=== PATIENT | female | born 1950 | race Caucasian/White ===

== ENCOUNTER 2016-10-06 10:45 | Emergency (ER) | payer BC, MEDICARE ==
[2016-10-06 10:50] VITALS: BMI 30.5
[2016-10-06] MEDS ORDERED: morphine CARPU-JECT 2 MG/1 ML DISP.SYRIN ONE (11:33)
[2016-10-06] MEDS ORDERED: SODIUM CHLORIDE 1,000 ML IV STA (11:33)
[2016-10-06] MEDS ORDERED: morphine CARPU-JECT 4 MG/1 ML DISP.SYRIN IVPUSH ONE (11:33)
[2016-10-06] MEDS ORDERED: CLINDAMYCIN 600MG PREMIX IVPB 50 ML IVPB ONE (11:49)
--- NOTE | 2016-10-06 11:52 | PDOC ---
History of Present Illness - General Chief Complaint: Edema Stated Complaint: EYE PROBLEM, HEADACHE Time Seen by Provider: 10/06/16 11:01 History Source: Patient - History of Present Illness Timing/Duration: other Severity: severe Associated Symptoms: denies: fever/chills, nausea/vomiting Past History - Past Medical History Allergies/Adverse Reactions: Allergies Allergy/AdvReac Type Severity Reaction Status Date / Time vancomycin Allergy Severe Verified 10/06/16 10:51 Home Medications: Ambulatory Orders Albuterol Sulfate [Proair Hfa -] 1 - 2 inh PO QID PRN 03/06/12 Buspirone HCl [Buspar] 15 mg PO BID 03/06/12 Gabapentin [Neurontin -] 900 mg PO BID 03/06/12 Paroxetine HCl [Paxil -] 10 mg PO DAILY 03/06/12 Tiotropium [place] [Spiriva] 1 inh IH HS 03/06/12 Aspirin Coated [Ecotrin -] 81 mg PO DAILY 09/15/15 Dicyclomine HCl [Bentyl -] 20 mg PO Q6H 09/15/15 Nortriptyline HCl [Pamelor -] 50 mg PO HS 09/15/15 Omeprazole [Prilosec (RX)] 40 mg PO DAILY 09/15/15 Salmeterol/Fluticasone [Advair 100Mcg/50Mcg -] 1 inh PO BID 09/15/15 Fluticasone Prop 0.05% Nasal [Flonase -] 1 - 2 spray NS DAILY 09/18/15 Folic Acid 1 mg PO DAILY 09/18/15 Oxycodone HCl/Acetaminophen [Percocet 5-325 mg Tablet] 1 tab PO Q6H PRN Amlodipine Besylate/Benazepril [Lotrel 5-40 mg Capsule] 1 each PO HS #30 capsule 06/27/16 Metoprolol Tartrate 25 mg PO DAILY #30 tablet 06/27/16 Alendronate Na [Fosamax] 70 mg PO Q7D 10/06/16 Anemia: Yes (IRON DEFICIENCY) Asthma: Yes Cancer: No Cardiac Disorders: Yes (CHEST PAIN,LEFT VENTRICULAR HYPERTROPHY) CVA: No COPD: No CHF: No Dementia: No Diabetes: No GI Disorders: Yes (ACID REFLUX, ABD. PAIN) Disorders: No HTN: Yes Hypercholesterolemia: Yes Liver Disease: Yes (FATTY LIVER) Suicide Attempt (Hx): No Seizures: No Thyroid Disease: No - Surgical History Abdominal Surgery: Yes (LIPOMA ON ABDOMEN REMOVED) Appendectomy: Yes Cardiac Surgery: No Cholecystectomy: No Lung Surgery: No Neurologic Surgery: No Orthopedic Surgery: Yes (TOTAL KNEE REPLACEMENTS) - Psycho/Social/Smoking Cessation Hx Anxiety: No Suicidal Ideation: No Smoking Status: No Smoking History: Never smoked Have you smoked in the past 12 months: No Number of Cigarettes Smoked Daily: 0 Hx Alcohol Use: No Drug/Substance Use Hx: No Substance Use Type: None Hx Substance Use Treatment: No Review of Systems - Review of Systems Constitutional: Yes: Fever. No: Chills *Physical Exam - Vital Signs Last Vital Signs Temp Pulse Resp BP Pulse Ox 98.6 F 100 H 20 123/86 100 10/06/16 10:46 10/06/16 10:46 10/06/16 10:46 10/06/16 10:46 10/06/16 10:46 - Physical Exam General Appearance: Yes: Appropriately Dressed, Mild Distress HEENT: positive: Normal Voice, Other (sig swelling w/ erythema to R face extending to R periorbital area, +induration over R maxilla area w/ ?fluctuance , poor dentition w/ missing teeth and dental caries) Neck: positive: Supple Respiratory/Chest: negative: Respiratory Distress Integumentary: positive: Dry, Warm Neurologic: positive: Fully Oriented, Alert, Normal Mood/Affect ED Treatment Course - LABORATORY CBC & Chemistry Diagram: 10/06/16 11:30 10/06/16 11:30 Medical Decision Making - Medical Decision Making 10/06/16 11:37 65-year-old female history of osteoporosis on Fosamax, hypertension, here with right-sided facial pain and swelling that started acutely this a.m. Patient states last month while states did not follow-up with a dentist and states pain has been gradually getting worse. This a.m. woke up with right facial pain and swelling. Positive subjective fever last night. No nausea, vomiting, dizziness or headache. See exam Dental abscess Stable significant swelling and erythema to R face diffusely w/ involvement of R periorbital area w/ almost complete closure of R eye, +induration over R maxilla w/ ? fluctuance, poor dentition w/ dental caries and missing teeth -pain control -abx -labs -m/l transfer to [facility] for admission and to be evaluated by dental for I&D 10/06/16 12:02 10/06/16 12:26 10/06/16 12:35 10/06/16 12:56 As of 12:40pm, pt was accepted to [facility] by Dr Patel in the ED. Dr Sandoval of dental surgery also aware. ETA for transport is 45-50min as per transfer center 10/06/16 13:21 *DC/Admit/Observation/Transfer Diagnosis at time of Disposition: Dental abscess, Facial cellulitis - Discharge Dispostion Disposition: TRANSFER ACUTE CARE/OTHER HOSP Condition at time of disposition: Stable - Referrals Referrals: Narinder Dhillon [Primary Care Provider] -
[2016-10-06 11:55] VITALS: TEMP 98.2
[2016-10-06 12:22] LABS: ALBUMIN 3.8 g/dl (3.4-5.0); ALK PHOS 132 U/L (45-117); ANION GAP 8 (8-16); BILIRUBIN,TOTAL 0.6 mg/dL (0.2-1.0); CO2 27 mmol/L (21-32); CREATININE 0.8 mg/dL (0.55-1.02); GLUCOSE,RANDOM 109 mg/dL (74-106); SGPT/ALT 32 U/L (12-78); TOT PROT 7.7 g/dl (6.4-8.2)
[2016-10-06 12:28] LABS: SGOT/AST 42 U/L (15-37)
[2016-10-06 12:44] LABS: BASOPHIL 0.4 % (0-2.0); MCH 31.7 pg (25.7-33.7); MCHC 33.5 g/dl (32.0-36.0); MEAN CELL VOLUME 94.8 fl (80-96); MEAN PLT VOLUME 9.3 fl (7.5-11.1); NEUTROPHILS 72.4 % (42.8-82.8); PLATELET COUNT 228 K/MM3 (134-434); RDW 13.7 % (11.6-15.6); WHITE BLOOD COUNT 9.7 K/mm3 (4.0-10.0)
[2016-10-06 12:55] LABS: INR 1.12 (0.82-1.09); PROTHROMBIN TIME (PATIENT) 12.3 SEC (9.98-11.88)
[2016-10-06] MEDS ORDERED: METOCLOPRAMIDE HCL INJECTION 10 MG/2 ML VIAL IVPB ONE (12:58)
[2016-10-06] MEDS ORDERED: METOCLOPRAMIDE HCL INJECTION 10 MG/2 ML VIAL ONE (13:01)
[2016-10-06 13:32] VITALS: BP 125/52; PULSE 86
[2016-10-06] MEDS ORDERED: CLINDAMYCIN 600MG PREMIX IVPB 50 ML IVPB SCH (18:00)
== END 2016-10-06 13:25 | disposition short-term general hospital (02) ==
LOC: JER 10:45
PROC: 3E03329 Introduction of Other Anti-infective into Peripheral Vein, Percutaneous Approach (ICD-10-PCS; principal; 2016-10-06)
PROC: 3E033NZ Introduction of Analgesics, Hypnotics, Sedatives into Peripheral Vein, Percutaneous Approach (ICD-10-PCS; 2016-10-06)
PROC: 3E033GC Introduction of Other Therapeutic Substance into Peripheral Vein, Percutaneous Approach (ICD-10-PCS; 2016-10-06)
DX: L03.213 Periorbital cellulitis (principal); K04.7 Periapical abscess without sinus; I10 Essential (primary) hypertension; E78.00 Pure hypercholesterolemia, unspecified; M81.0 Age-related osteoporosis without current pathological fracture
CPT/HCPCS: 36415; 80053; 85025; 85610; 86850; 86900; 86901; 96365; 96375; 99284-25

== ENCOUNTER 2017-05-27 08:08 | Day surgery (SDC) | payer BC, MEDICARE ==
[2017-05-27 08:27] VITALS: BMI 39.4
[2017-05-27] MEDS ORDERED: PROPOFOL 20 ML ONE (09:36)
[2017-05-27 09:59] VITALS: TEMP 97.8
[2017-05-27 10:41] VITALS: BP 122/84; PULSE 60
== END 2017-05-27 10:42 | disposition home or self-care (01) ==
LOC: JASU-ENDO 08:08
PROVIDERS: ATTEND Internal Medicine Gastroenterology
PROC: 0DJD8ZZ Inspection of Lower Intestinal Tract, Via Natural or Artificial Opening Endoscopic (ICD-10-PCS; principal; 2017-05-27 09:00)
DX: K64.8 Other hemorrhoids (principal); K62.89 Other specified diseases of anus and rectum; K63.89 Other specified diseases of intestine

== ENCOUNTER 2017-07-21 14:37 | Observation (INO) | payer BC, MEDICARE ==
[2017-07-21 14:48] VITALS: BMI 37.8
--- NOTE | 2017-07-21 14:48 | PDOC ---
Rapid Medical Evaluation Time Seen by Provider: 07/21/17 14:43 Medical Evaluation: Allergies Allergy/AdvReac Type Severity Reaction Status Date / Time vancomycin Allergy Severe Verified 10/06/16 10:51 07/21/17 14:44 Pt presents to the ED: syncope x 3, intermittent dizziness, denies cp, states hx of vertigo but on no medication, states head hit twice today, c/o generalized headache Pt on brief exam: vss, eomi, perrl Pt ordered for: cardiac w/u, head and cervical ct Pt to proceed to the ED Discharge Disposition - Diagnosis Syncope - Referrals - Patient Instructions - Post Discharge Activity
[2017-07-21 15:13] LABS: BASO % 0.2 % (0-2.0); EOS % 0.2 % (0-4.5); HEMATOCRIT 34.3 % (32.4-45.2); HEMOGLOBIN 11.6 GM/dL (10.7-15.3); LYMPH % 19.9 % (8-40); MCH 32.4 pg (25.7-33.7); MCHC 33.8 g/dl (32.0-36.0); MEAN PLT VOLUME 8.3 fl (7.5-11.1); MONO % 7.4 % (3.8-10.2); NEUT % 72.3 % (42.8-82.8); PLATELET COUNT 188 K/MM3 (134-434); RBC 3.57 M/mm3 (3.60-5.2); RDW 13.2 % (11.6-15.6); WHITE BLOOD COUNT 9.7 K/mm3 (4.0-10.0)
[2017-07-21 15:38] LABS: INR 1.09 (0.82-1.09); PROTHROMBIN TIME (PATIENT) 12.3 SEC (9.98-11.88)
[2017-07-21 15:54] LABS: ALBUMIN 3.8 g/dl (3.4-5.0); ANION GAP 10 (8-16); BLOOD UREA NITROGEN 21 mg/dL (7-18); CALCIUM 9.2 mg/dL (8.5-10.1); CHLORIDE 104 mmol/L (98-107); CO2 25 mmol/L (21-32); CREATININE 0.9 mg/dL (0.55-1.02); GLUCOSE,RANDOM 163 mg/dL (74-106); MAGNESIUM 1.7 mg/dL (1.8-2.4); POTASSIUM 4.5 mmol/L (3.5-5.1); SGOT/AST 19 U/L (15-37); SGPT/ALT 30 U/L (12-78); SODIUM 139 mmol/L (136-145)
[2017-07-21 15:59] LABS: ALK PHOS 96 U/L (45-117); BILIRUBIN,TOTAL 0.5 mg/dL (0.2-1.0); TOT PROT 7.3 g/dl (6.4-8.2)
--- NOTE | 2017-07-21 16:37 | PDOC ---
History of Present Illness - General Chief Complaint: Syncope/Near Syncope Stated Complaint: Syncope/Near Syncope Time Seen by Provider: 07/21/17 14:43 History Source: Patient Exam Limitations: No Limitations - History of Present Illness Initial Comments: This is a 66 YOF with h/o vertigo, HTN, CHARISSA (nonadherent to CPAP), and asthma who p/w intermittent lightheadedness (not like her prior vertigo), syncope x3 today, and hitting her head twice during these episodes on the left forehead. Each of these falls was preceded within a minute by having stood up from standing position. She additionally notes preceding lightheadedness and palpitations, but no chest pain, SOB, vision changes, or other symptoms. She currently has a mild headache in the area that she struck her head, as well as mild bruising to the area, but denies any other new symptoms today. She has had BLE swelling chronically but it is worse than normal lately. She had one prior recent episode of syncope about 2-3 months ago and was told that they never found out why this happened. Past History - Past Medical History Allergies/Adverse Reactions: Allergies Allergy/AdvReac Type Severity Reaction Status Date / Time vancomycin Allergy Severe Verified 07/21/17 14:44 Home Medications: Ambulatory Orders Paroxetine HCl [Paxil -] 20 mg PO DAILY 03/06/12 Aspirin Coated [Ecotrin -] 81 mg PO DAILY 09/15/15 Nortriptyline HCl [Pamelor -] 50 mg PO HS 09/15/15 Omeprazole [Prilosec (RX)] 40 mg PO DAILY 09/15/15 Oxycodone HCl/Acetaminophen [Percocet 5-325 mg Tablet] 1 tab PO Q6H PRN Metoprolol Tartrate 25 mg PO DAILY #30 tablet 06/27/16 Atorvastatin Ca [Lipitor] 40 mg PO HS 05/26/17 Benazepril HCl [Lotensin] 40 mg PO DAILY 05/26/17 Cyclobenzaprine HCl [Flexeril -] 5 mg PO DAILY 05/26/17 Cyclosporine [Restasis] 1 each OP DAILY 05/26/17 Albuterol Sulfate Inhaler - [Ventolin HFA Inhaler -] 1 - 2 inh PO QID 05/27/17 Fluticasone Prop 0.05% Nasal [Flonase -] 1 spray NS DAILY 05/27/17 Fluticasone/Salmeterol [Advair 250-50 Diskus] 1 each IH DAILY 05/27/17 Tiotropium [place] [Spiriva] 1 inh IH HS 05/27/17 Anemia: Yes (IRON DEFICIENCY) Asthma: Yes Cancer: No Cardiac Disorders: Yes (CHEST PAIN,LEFT VENTRICULAR HYPERTROPHY) CVA: No COPD: No CHF: No Dementia: No Diabetes: No GI Disorders: Yes (ACID REFLUX, ABD. PAIN. CHRONIC CONSTIPATION DRUG INDUCED) Disorders: No HTN: Yes Hypercholesterolemia: Yes Liver Disease: Yes (FATTY LIVER) Seizures: No Thyroid Disease: No - Surgical History Abdominal Surgery: Yes (LIPOMA ON ABDOMEN REMOVED) Appendectomy: Yes Cardiac Surgery: No Cholecystectomy: No Lung Surgery: No Neurologic Surgery: No Orthopedic Surgery: Yes (TOTAL KNEE REPLACEMENTS) - Suicide/Smoking/Psychosocial Hx Smoking Status: No Smoking History: Never smoked Have you smoked in the past 12 months: No Number of Cigarettes Smoked Daily: 0 Hx Alcohol Use: No Drug/Substance Use Hx: No Substance Use Type: None Hx Substance Use Treatment: No Review of Systems - Review of Systems Able to Perform ROS?: Yes Constitutional: No: Chills, Fever, Unexplained wgt Loss HEENTM: No: Nose Congestion, Throat Pain Respiratory: No: Cough, Shortness of Breath Cardiac (ROS): Yes: Edema, Lightheadedness, Palpitations (rapid), Syncope (x3 today). No: Chest Pain, Irregular Heart Rate ABD/GI: No: Constipated, Diarrhea, Nausea, Vomiting : No: Burning, Dysuria Musculoskeletal: No: Back Pain, Neck Pain Integumentary: No: Bruising, Rash Neurological: Yes: Headache (states since hitting forehead during syncopal episode). No: Numbness, Tingling, Weakness Endocrine: No: Unexplained Weight Gain, Unexplained Weight Loss *Physical Exam - Vital Signs Last Vital Signs Temp Pulse Resp BP Pulse Ox 98.3 F 118 H 19 138/80 99 07/21/17 14:44 07/21/17 14:44 07/21/17 14:44 07/21/17 14:44 07/21/17 14:44 - Physical Exam General Appearance: Yes: Nourished, Appropriately Dressed, Obese, Other ( pleasant, anxious-appearing, intermittently tearful, accompanied at bedside by daughter who is supportive). No: Apparent Distress HEENT: positive: EOMI, ELMER, Normal ENT Inspection, Normal Voice, Hearing Grossly Normal, Other (left frontal scalp contusion, no cephalohematoma, no raccoon eyes, no pastor sign, no hemotympanum, no CSF rhinorrhea or otorrhea). negative: Scleral Icterus (R), Scleral Icterus (L), Pharyngeal Erythema, Nasal Congestion, TM Bulging, TM Dull, TM Erythema Neck: positive: Trachea midline, Supple. negative: Tender, Rigid Respiratory/Chest: positive: Lungs Clear, Normal Breath Sounds. negative: Respiratory Distress, Crackles, Rhonchi, Stridor, Wheezing Cardiovascular: positive: Regular Rhythm, Regular Rate, Edema (1+ pitting edema BLE), Systolic Murmur (2/6) Gastrointestinal/Abdominal: positive: Normal Bowel Sounds, Soft, Protuberent. negative: Tender, Organomegaly, Pulsatile Mass, Guarding Musculoskeletal: positive: Normal Inspection. negative: Decreased Range of Motion, Vertebral Tenderness Extremity: positive: Normal Capillary Refill, Normal Inspection, Normal Range of Motion. negative: Tender, Cyanosis Integumentary: positive: Normal Color, Dry, Warm. negative: Erythema, Rash, Bruising Neurologic: positive: keysmith II-XII NML intact, Fully Oriented, Alert, Normal Mood/ Affect, Normal Response, Motor Strength 5/5, Finger to Nose (intention tremor but symmetric bilaterally). negative: EOM Palsy, Facial Droop, Confused, Disoriented ED Treatment Course - LABORATORY CBC & Chemistry Diagram: 07/21/17 15:05 07/21/17 15:05 - ADDITIONAL ORDERS Additional order review: Laboratory Results 07/21/17 07/21/17 15:05 15:05 PT with INR 12.30 H INR 1.09 Sodium 139 Potassium 4.5 Chloride 104 Carbon Dioxide 25 Anion Gap 10 BUN 21 H D Creatinine 0.9 Creat Clearance w eGFR > 60 Random Glucose 163 H D Calcium 9.2 Magnesium 1.7 L AST 19 D ALT 30 Albumin 3.8 07/21/17 15:05 RBC 3.57 L MCV 96.0 MCHC 33.8 RDW 13.2 MPV 8.3 D Neutrophils % 72.3 Lymphocytes % 19.9 Monocytes % 7.4 Eosinophils % 0.2 Basophils % 0.2 Medical Decision Making - Medical Decision Making 66 YOF p/w syncope x3 today, hit head on floor x2, had preceding RHR and lightheadedness. On exam VS with initial mild tachycardia but this resolves before my examination. Patient is anxious, tearful, but otherwise no distress, has intention tremor stated unchanged chronic. HEENT with left frontal contusions x2 but no other signs of facial trauma. Heart/lungs/abdomen/neuro normal exams otherwise except 2/6 systolic ejection murmur. DDX IBNLT critical , arrhythmia (e.g. ventricular arrhythmias, pSVT, A-fib with RVR, etc.), infection, ACS, PE, orthostasis, etc. Ordered is CBCD CMP cardiac panel EKG, CXR, Head and C-spine CT. 07/21/17 18:54 No remarkable findings on labs, EKG, CXR, or CT studies. She has BUN and Cr elevation in dehydration pattern. Patient given small bolus of IVF, also drinking PO. [employer] microblogged for admission. Admits patient to IP tele to Dr. Aranda. No repeated episodes of syncope here in the ED. *DC/Admit/Observation/Transfer Diagnosis at time of Disposition: Syncopal episodes Qualifiers: Syncope type: unspecified Qualified Code(s): R55 - Syncope and collapse CHI (closed head injury) Qualifiers: Encounter type: sequela Qualified Code(s): S09.90XS - Unspecified injury of head, sequela - Discharge Dispostion Condition at time of disposition: Guarded Admit: Yes - Referrals - Patient Instructions - Post Discharge Activity
--- NOTE | 2017-07-21 16:48 | EKG ---
Test Reason : Blood Pressure : / mmHG Vent. Rate : 108 BPM Atrial Rate : 108 BPM P-R Int : 144 ms QRS Dur : 092 ms QT Int : 350 ms P-R-T Axes : 040 011 047 degrees QTc Int : 469 ms SINUS TACHYCARDIA RSR' OR QR PATTERN IN V1 SUGGESTS RIGHT VENTRICULAR CONDUCTION DELAY NONSPECIFIC ST AND T WAVE ABNORMALITY ABNORMAL ECG WHEN COMPARED WITH ECG OF 27-JUN-2016 10:33, T WAVE VARIATION Confirmed by LISETTE GAY, ARACELI ([id number]) on 07/21/2017 4:47:37 PM Referred By: Confirmed By:ARACELI KNOX MD
[2017-07-21] MEDS ORDERED: SODIUM CHLORIDE 500 ML IV STA (17:26)
--- NOTE | 2017-07-21 17:30 | PDOC ---
Attending Attestation - Resident Resident Name: Natalia Steele - ED Attending Attestation I have performed the following: I have examined & evaluated the patient, The case was reviewed & discussed with the resident, I agree w/resident's findings & plan, Exceptions are as noted - Medical Decision Making 07/21/17 17:28 A portion of this note was written by my scribe, under my supervision. Vital Signs Temp Pulse Resp BP Pulse Ox 98.3 F 118 H 19 138/80 99 07/21/17 14:44 07/21/17 14:44 07/21/17 14:44 07/21/17 14:44 07/21/17 14:44 66-year-old female with history of hypertension, obstructive sleep apnea, asthma presents with syncope. Patient reports that for the last few days she's been having loose stools. Reports that she's been having normal intake. This morning, the patient was attempt to get of bed when she suddenly syncopized. She reported hitting her head. Denies headache but reports some forehead pain. Takes aspirin. Patient had then fainted a second time. She had called over to the bathroom and attempted to get up to the bathroom sink when she suddenly fainted again a hit her head. Denied chest pain or shortness of breath but did endorse some palpitations. Came to the ED for further evaluation. While the patient's syncope may potentially be orthostatic, the patient had fainted 3 times which with an abnormal EKG, requires workup for potential cardiac etiology. I agree with the plan to obtain head CT to rule out intracranial hemorrhage secondary to injury. Labs, trial some IV fluids, telemetry and admission to the hospital for further evaluation. <Shaun Spence - Last Filed: 07/21/17 17:26> - HPI HPI: 07/21/17 17:55 Pt is a 66 yo F with a PMHx of hypertension, obstructive sleep apnea, vertigo, asthma who presents to the ED s/p three syncopal episodes today. First episode occured when she got out of bed this morning. Patient reports hitting her forehead and endorses forehead pain. Patient denies nausea, vomiting, headache , dizziness. Patient syncopized a second time on the toilet when using the restroom, hitting her head a second time. Thirdly, she syncopized while sweeping the floor in her house. After all three episodes, patient returned to baseline however remained increasingly weak. Patient also endorses loose stools for the past few days and presents to the ED for further evaluation. PCP: None - Physicial Exam PE: 07/21/17 17:55 GENERAL: Awake, alert, and fully oriented, in no acute distress HEAD: +Small abrasion to L forehead EYES: PERRLA, EOMI, sclera anicteric, conjunctiva clear ENT: Auricles normal inspection, hearing grossly normal, nares patent, oropharynx clear without exudates. Moist mucosa NECK: Normal ROM, supple, no lymphadenopathy, JVD, or masses LUNGS: Breath sounds equal, clear to auscultation bilaterally. No wheezes, and no crackles HEART: Soft systolic murmur. Regular rate and rhythm, normal S1 and S2, No rubs or gallops ABDOMEN: Soft, nontender, normoactive bowel sounds. No guarding, no rebound. No masses EXTREMITIES: Normal range of motion, no edema. No clubbing or cyanosis. No cords, erythema, or tenderness NEUROLOGICAL: Cranial nerves II through XII grossly intact. Normal speech, normal gait SKIN: Warm, Dry, normal turgor, no rashes or lesions noted. - Medical Decision Making 07/21/17 17:55 Documentation prepared by Brittaney Muñiz, acting as medical education coordinator for Shaun Spence MD <Brittaney Muñiz - Last Filed: 07/21/17 17:55> Heart Score/ECG Review #1 07/21/17 17:26 NSR 108, RSR', RVH, QTC 469 msec, ?submm STD V3-V4 <Shaun Spence - Last Filed: 07/21/17 17:26>
[2017-07-21] MEDS ORDERED: ACETAMINOPHEN INJECTION 100 ML IVPB ONE (18:24)
[2017-07-21] MEDS ORDERED: ACETAMINOPHEN 1000 MG/100 ML VIAL (NON FORMULARY) IVPB ONE (18:29)
--- NOTE | 2017-07-21 19:23 | PN ---
Teaching Attending Note Name of Resident: Ann Lee ATTENDING PHYSICIAN STATEMENT I saw and evaluated the patient. I reviewed the resident's note and discussed the case with the resident. I agree with the resident's findings and plan as documented. SUBJECTIVE: 66 F with pmhx. of vertigo, htn, CHARISSA (does not wear CPAP), and asthma who presents with loss of concioussness three times. She states she has episodes intermittently of ligthheadedness and she hit her head during her syncopal episodes. Her falls mainly happened while getting up from sitting to standing. She had a similar episode of syncope around 2-3 months ago, but did not know what caused it. OBJECTIVE: Physical: VS: Vital Signs Period Temp Pulse Resp BP Sys/Matos Pulse Ox Last 24 Hr 98.3 F 118 19 138/80 99 GEN: NAD, Resting in bed AA0X3 HEENT: NCAT, PERRL, throat without erythema or exudates CARD:RRR S1, S2 RESP: CTAB ABD: BSx4, NTD to palpation EXT:-C/C/E CBCD WBC 9.7 K/mm3 (4.0-10.0) 07/21/17 15:05 RBC 3.57 M/mm3 (3.60-5.2) L 07/21/17 15:05 Hgb 11.6 GM/dL (10.7-15.3) 07/21/17 15:05 Hct 34.3 % (32.4-45.2) 07/21/17 15:05 MCV 96.0 fl (80-96) 07/21/17 15:05 MCHC 33.8 g/dl (32.0-36.0) 07/21/17 15:05 RDW 13.2 % (11.6-15.6) 07/21/17 15:05 Plt Count 188 K/MM3 (134-434) 07/21/17 15:05 MPV 8.3 fl (7.5-11.1) D 07/21/17 15:05 CMP Sodium 139 mmol/L (136-145) 07/21/17 15:05 Potassium 4.5 mmol/L (3.5-5.1) 07/21/17 15:05 Chloride 104 mmol/L (98-107) 07/21/17 15:05 Carbon Dioxide 25 mmol/L (21-32) 07/21/17 15:05 Anion Gap 10 (8-16) 07/21/17 15:05 BUN 21 mg/dL (7-18) H D 07/21/17 15:05 Creatinine 0.9 mg/dL (0.55-1.02) 07/21/17 15:05 Creat Clearance w eGFR > 60 (>60) 07/21/17 15:05 Random Glucose 163 mg/dL (74-106) H D 07/21/17 15:05 Calcium 9.2 mg/dL (8.5-10.1) 07/21/17 15:05 Total Bilirubin 0.5 mg/dL (0.2-1.0) 07/21/17 15:05 AST 19 U/L (15-37) D 07/21/17 15:05 ALT 30 U/L (12-78) 07/21/17 15:05 Alkaline Phosphatase 96 U/L (45-117) D 07/21/17 15:05 Total Protein 7.3 g/dl (6.4-8.2) 07/21/17 15:05 Albumin 3.8 g/dl (3.4-5.0) 07/21/17 15:05 CARDIAC ENZYMES Creatine Kinase 219 IU/L (26-192) H 07/21/17 15:05 Troponin I < 0.02 ng/ml (0.00-0.05) 07/21/17 15:05 CT HEAD- Negative for acute process EKG: Sinus Tachy 108, QtC 469 ASSESSMENT AND PLAN: 66 F with pmhx. of vertigo, htn, CHARISSA (does not wear CPAP), and asthma who presents with loss of conciousness three times, being admitted for syncope. 1.) Loss of Concsioussness - DDx: Cardiac vs. Vasovagal - Orthostatic Vs - Echo - Carotid Us - TSH - Trend Trop/Ekg - CT HEAD negative 2.) Vertigo - Meclizine Rest as per resident note
--- NOTE | 2017-07-21 20:12 | HP ---
CHIEF COMPLAINT: " I passed out and fell three times today PCP: Dr. Narinder Hall Pulm: Dr. Dumont GI: Dr. Thompson ENT: Dr. Ball Cardio: Dr. Edith Bailey HISTORY OF PRESENT ILLNESS: Patient is an 66-year-old male presented to the ED with the chief complaint of " I passed out and fell three times today". As per the patient, she woke up this morning, as soon as she took her first step, she passed out. No dizziness, vertigo or any symptoms prior to the syncope. Patient states she was alone at home. She woke up took few more steps, passed out near the toilet. Cannot tell how long she passed out. Patient then went to the Kitchen and started mopping the floor (daughter states she has OCD to clean and is always cleaning), and passed out the third time. Patient again regained consciouness, had a cup of coffee for breakfast, called cab and came in to the ED for further evaluation. This is her second episode of syncope, last syncope was 2 months ago. Denies chest pain, palpitation, abdominal pain, nausea, vomiting, vertigo, dizziness. Patient states she had sob this morning prior to the fall and had severe headache post fall. Patient reports she has had loose stool since few days associated with food intake. She also complaints of chronic epigastric burning pain that has been going on since 2 years. Bladder habit normal. Sleep/Appetite normal ER course was notable for: (1) Afebrile, hemodynamically stable (2) EKG: NSR 108, RSR', RVH, QTC 469 msec, ?submm STD V3-V4 (3) IV NS @ 500mls Recent Travel: None PAST MEDICAL HISTORY: Asthma (no ICU, no intubations), CHARISSA on CPAP on/off , GERD , hiatal hernia, HTN, depression, generalized anxiety disorder, Essential tremors PAST SURGICAL HISTORY: B/L knee replacement, left breast biospy done 2 months ago-benign as per the patient. Social History: Smoking: Denies Alcohol: Denies Drugs: Denies Family History: Non contributory Allergies vancomycin Allergy (Severe, Verified 07/21/17 14:44) red man syndrome HOME MEDICATIONS: Home Medications Medication Instructions Recorded Paroxetine HCl [Paxil -] 20 mg PO DAILY 03/06/12 Aspirin Coated [Ecotrin -] 81 mg PO DAILY 09/15/15 Nortriptyline HCl [Pamelor -] 50 mg PO HS 09/15/15 Omeprazole [Prilosec (RX)] 40 mg PO DAILY 09/15/15 Oxycodone HCl/Acetaminophen 1 tab PO Q6H PRN 12/07/15 [Percocet 5-325 mg Tablet] Metoprolol Tartrate 25 mg PO DAILY #30 tablet 06/27/16 Atorvastatin Ca [Lipitor] 40 mg PO HS 05/26/17 Benazepril HCl [Lotensin] 40 mg PO DAILY 05/26/17 Cyclobenzaprine HCl [Flexeril -] 5 mg PO DAILY 05/26/17 Cyclosporine [Restasis] 1 each OP DAILY 05/26/17 Albuterol Sulfate Inhaler - 1 - 2 inh PO QID 05/27/17 [Ventolin HFA Inhaler -] Fluticasone Prop 0.05% Nasal 1 spray NS DAILY 05/27/17 [Flonase -] Fluticasone/Salmeterol [Advair 1 each IH DAILY 05/27/17 250-50 Diskus] Tiotropium [place] [Spiriva] 1 inh IH HS 05/27/17 REVIEW OF SYSTEMS CONSTITUTIONAL: Absent: fever, chills, diaphoresis, generalized weakness, malaise, loss of appetite, weight change HEENT: Absent: rhinorrhea, nasal congestion, throat pain, throat swelling, difficulty swallowing, mouth swelling, ear pain, eye pain, visual changes CARDIOVASCULAR: Absent: chest pain, syncope, palpitations, irregular heart rate, lightheadedness , peripheral edema RESPIRATORY: Absent: cough, shortness of breath, dyspnea with exertion, orthopnea, wheezing, stridor, hemoptysis GASTROINTESTINAL: Absent: abdominal pain, abdominal distension, nausea, vomiting, diarrhea, constipation, melena, hematochezia GENITOURINARY: Absent: dysuria, frequency, urgency, hesitancy, hematuria, flank pain, genital pain MUSCULOSKELETAL: Absent: myalgia, arthralgia, joint swelling, back pain, neck pain SKIN: Absent: rash, itching, pallor HEMATOLOGIC/IMMUNOLOGIC: Absent: easy bleeding, easy bruising, lymphadenopathy, frequent infections ENDOCRINE: Absent: unexplained weight gain, unexplained weight loss, heat intolerance, cold intolerance NEUROLOGIC: Present: syncope Absent: headache, focal weakness or paresthesias, dizziness, unsteady gait, seizure, mental status changes, bladder or bowel incontinence PSYCHIATRIC: Absent: anxiety, depression, suicidal or homicidal ideation, hallucinations. PHYSICAL EXAMINATION Vital Signs - 24 hr 07/21/17 14:44 Temperature 98.3 F Pulse Rate 118 H Respiratory 19 Rate Blood Pressure 138/80 O2 Sat by Pulse 99 Oximetry (%) GENERAL: Patient is sitting comfortably in bed, Awake, alert, and fully oriented , in no acute distress. HEAD: Bruises in the forehead, no active bleeding or cuts. EYES: EOM intact, no pallor or icterus. EARS, NOSE, THROAT: Ears normal. Dry mucous membranes. NECK: Supple. LUNGS: B/L Breath sounds equal, clear to auscultation bilaterally. No wheezes, and no crackles. No accessory muscle use. HEART: Regular rate and rhythm, normal S1 and S2 with soft systolic murmur. ABDOMEN: Soft, nontender, not distended, normoactive bowel sounds, no guarding, no rebound, no masses. No hepatomegaly or splenomegaly. MUSCULOSKELETAL: Normal range of motion at all joints. No bony deformities or tenderness. No CVA tenderness. UPPER EXTREMITIES: 2+ pulses, warm, well-perfused. No cyanosis. No clubbing. No peripheral edema. Right wrist: swollen+, tender to touch, limited ROM LOWER EXTREMITIES: 2+ pulses, warm, well-perfused. No calf tenderness. No peripheral edema. NEUROLOGICAL: No facial droop; Power 5/5 in all extremities except the left upper ext-has chronic weakness; Cranial nerves II-XII intact. Normal speech. Gait not observed. PSYCHIATRIC: Cooperative. Good eye contact. Appropriate mood and affect. SKIN: Warm, dry, normal turgor, no rashes or lesions noted, normal capillary refill. Laboratory Results - last 24 hr 07/21/17 07/21/17 07/21/17 15:05 15:05 15:05 WBC 9.7 RBC 3.57 L Hgb 11.6 Hct 34.3 MCV 96.0 MCH 32.4 MCHC 33.8 RDW 13.2 Plt Count 188 MPV 8.3 D Neutrophils % 72.3 Lymphocytes % 19.9 Monocytes % 7.4 Eosinophils % 0.2 Basophils % 0.2 PT with INR 12.30 H INR 1.09 Sodium 139 Potassium 4.5 Chloride 104 Carbon Dioxide 25 Anion Gap 10 BUN 21 H D Creatinine 0.9 Creat Clearance w eGFR > 60 Random Glucose 163 H D Calcium 9.2 Magnesium 1.7 L Total Bilirubin 0.5 AST 19 D ALT 30 Alkaline Phosphatase 96 D Creatine Kinase 219 H Creatine Kinase Index 2.4 CK-MB (CK-2) 5.462 H Troponin I < 0.02 Total Protein 7.3 Albumin 3.8 ASSESSMENT/PLAN: Patient is an 66-year-old male with significant past medical history of Asthma ( no ICU, no intubations), CHARISSA on CPAP on/off , GERD, hiatal hernia, HTN, depression, generalized anxiety disorder, Essential tremors presented to the ED with the chief complaint of syncope three episodes today. # Syncope likely vasovagal with dehydration c/o syncope three episodes, unwitnessed On arrival, she was afebrile, hemodynamically stable Admitted in Tele/obs Continuous cardiac monitoring Head CT negative for acute pathology CXR: No fractures Cervical spine CT: No acute pathology ECHO and Carotid doppler- ordered for AM IV NS @ 83mls/hr # s/p fall-r/o fracture Left shoulder and wrist x-ray pending. # SOB with RSR' pattern in EKG, Tachycardia-r/o PE Low suspicion for PE Wells score- D-dimer pending # Asthma-not in exacerbation Albuterol nebs Fluticasone/Salmeterol # ATUL Continue Nortriptyline 50 mg PO HS Continue Paroxetine 20 mg PO Daily # GERD Continue Omeprazole 20mg PO Daily # FEN IV NS @ 83mls/hr Electrolytes WNL Sodium controlled diet # Prophylaxis For DVT: ON SCDs, early ambulation For GI: On Omeprazole # Code Status: Full Code # Dispo: Admitted in Tele/obs. Probable discharge tomorrow if patients labs/ imaging comes back normal. Illness, Investigation and Plan of care explained to the patient and her daughter. She verbalized understanding. Case seen and discussed with Dr. Page. Visit type - Emergency Visit Emergency Visit: Yes ED Registration Date: 07/21/17 Care time: The patient presented to the Emergency Department on the above date and was hospitalized for further evaluation of their emergent condition. - New Patient This patient is new to me today: Yes Date on this admission: 07/21/17 - Critical Care Critical Care patient: No
[2017-07-21] MEDS ORDERED: SODIUM CHLORIDE 1,000 ML IV SCH (20:15)
[2017-07-21] MEDS ORDERED: [UNRECOGNIZED DRUG - OTHER] PO SCH (20:15)
[2017-07-21] MEDS ORDERED: ACETAMINOPHEN 325 MG TABLET (FP) PO PRN (20:25)
[2017-07-21] MEDS ORDERED: oxyCODONE HCL 5 MG TABLET PO PRN (20:25)
[2017-07-21] MEDS ORDERED: ALBUTEROL SO4 0.083% IH SOL 2.5 MG/3 ML VIAL.NEB. NEB PRN (20:28)
[2017-07-21] MEDS: PARoxetine HCL 10 MG TABLET (FP) PO SCH (21:24)
[2017-07-21] MEDS ORDERED: PARoxetine HCL 10 MG TABLET (FP) ONE (21:24)
[2017-07-21 21:44] LABS: URINE APPEARANCE CLEAR; URINE BILIRUBIN NEGATIVE (NEGATIVE); URINE BLOOD NEGATIVE (NEGATIVE); URINE COLOR STRAW; URINE GLUCOSE (UA) NEGATIVE (NEGATIVE); URINE KETONE NEGATIVE (NEGATIVE); URINE LEUK ESTERASE NEGATIVE (NEGATIVE); URINE NITRITE NEGATIVE (NEGATIVE); URINE PROTEIN NEGATIVE (NEGATIVE); URINE UROBILINOGEN NEGATIVE mg/dL (0.2-1.0)
[2017-07-21] MEDS ORDERED: NORTRIPTYLINE HCL 50 MG CAPSULE PO SCH (22:00)
[2017-07-21] MEDS ORDERED: NORTRIPTYLINE HCL 25 MG CAPSULE PO SCH (22:37)
[2017-07-21] MEDS: ATORVASTATIN CA 40 MG TABLET (FP) PO SCH (23:00)
[2017-07-21] MEDS: BUDESONIDE/FORMETEROL FUMARATE 80/4.5 mcg INHALER IH SCH (23:00)
[2017-07-21] MEDS: TIOTROPIUM BROMIDE 18 MCG/INH (DEVICE W/ 5 CAPSULES) IH SCH (23:00)
[2017-07-22 07:42] LABS: HEMATOCRIT 36.2 % (32.4-45.2); HEMOGLOBIN 11.9 GM/dL (10.7-15.3); MCH 31.8 pg (25.7-33.7); MCHC 32.9 g/dl (32.0-36.0); MEAN CELL VOLUME 96.5 fl (80-96); MEAN PLT VOLUME 8.4 fl (7.5-11.1); PLATELET COUNT 178 K/MM3 (134-434); RBC 3.75 M/mm3 (3.60-5.2); RDW 13.4 % (11.6-15.6)
[2017-07-22 07:49] LABS: ANION GAP 9 (8-16); BLOOD UREA NITROGEN 13 mg/dL (7-18); CHLORIDE 108 mmol/L (98-107); CO2 25 mmol/L (21-32); GLUCOSE,RANDOM 104 mg/dL (74-106); MAGNESIUM 2.1 mg/dL (1.8-2.4); POTASSIUM 4.2 mmol/L (3.5-5.1); SODIUM 142 mmol/L (136-145)
[2017-07-22 07:53] LABS: CHOLESTEROL 145 mg/dL (50-200); CREATININE 0.7 mg/dL (0.55-1.02); HDL CHOLESTEROL 97 mg/dL (40-60); LDL CHOLESTEROL (ONLY SJRH) 47 mg/dL (5-100); TRIGLYCERIDES 47 mg/dL (35-160)
[2017-07-22] MEDS: BUDESONIDE/FORMETEROL FUMARATE 80/4.5 mcg INHALER IH SCH ×2 (10:00→22:00)
[2017-07-22] MEDS ORDERED: PATIENT'S OWN MEDICATION (NON-FORMULARY) (Cyclosporine [Restasis] 1 EACH) OP SCH (10:00)
[2017-07-22] MEDS: LISINOPRIL 20 MG TABLET (FP) PO SCH (10:01)
[2017-07-22] MEDS: ASPIRIN COATED 81 MG TABLET.EC PO SCH (10:02)
[2017-07-22] MEDS: CYCLOBENZAPRINE HCL 10 MG TABLET (FP) PO SCH (10:03)
[2017-07-22] MEDS: METOPROLOL TARTRATE 25 MG TABLET (FP) PO SCH (10:04)
[2017-07-22] MEDS: FLUTICASONE PROP 0.05% 16 GM NASAL SPRAY NS SCH (10:04)
[2017-07-22] MEDS ORDERED: PARoxetine HCL 10 MG TABLET (FP) ONE (10:05)
[2017-07-22] MEDS ORDERED: METOPROLOL TARTRATE 25 MG TABLET (FP) ONE (10:05)
[2017-07-22] MEDS: PARoxetine HCL 10 MG TABLET (FP) PO SCH (10:05)
--- NOTE | 2017-07-22 10:09 | CON.CARD ---
Consult Consult Specialty:: Cardiology Referred by:: Nahomy Reason for Consultation:: syncope - History of Present Illness Chief Complaint: syncope History of Present Illness: 66F non-obstx CAD, HTN, HL, asthma, b/l knee replacements, CHARISSA recent issues with low BP, last seen in office on 06/19 with low BP- amlo/benaz was discontinued. Yesterday she describes 3 episodes of syncope after standing. Denies antecedent CP, SOB, edema. Denies fever or chills. Denies recent illness. - History Source History Provided By: Patient, Medical Record - Past Medical History Cardio/Vascular: Yes: HTN, Hyperlipdemia Pulmonary: Yes: Asthma, Sleep Apnea Gastrointestinal: Yes: Gastritis, GERD, Hiatal Hernia Psych: Yes: Anxiety, Depression Musculoskeletal: Yes: Chronic low back pain - Past Surgical History Past Surgical History: Yes: Appendectomy - Alcohol/Substance Use Hx Alcohol Use: No History of Substance Use: reports: None - Smoking History Smoking history: Never smoked Have you smoked in the past 12 months: No Aproximately how many cigarettes per day: 0 - Social History ADL: Independent History of Recent Travel: No Home Medications - Allergies Allergies/Adverse Reactions: Allergies Allergy/AdvReac Type Severity Reaction Status Date / Time vancomycin Allergy Severe Verified 07/21/17 14:44 - Home Medications Home Medications: Ambulatory Orders Paroxetine HCl [Paxil -] 20 mg PO DAILY 03/06/12 Aspirin Coated [Ecotrin -] 81 mg PO DAILY 09/15/15 Nortriptyline HCl [Pamelor -] 50 mg PO HS 09/15/15 Omeprazole [Prilosec (RX)] 40 mg PO DAILY 09/15/15 Oxycodone HCl/Acetaminophen [Percocet 5-325 mg Tablet] 1 tab PO Q6H PRN Metoprolol Tartrate 25 mg PO DAILY #30 tablet 06/27/16 Atorvastatin Ca [Lipitor] 40 mg PO HS 05/26/17 Benazepril HCl [Lotensin] 40 mg PO DAILY 05/26/17 Cyclobenzaprine HCl [Flexeril -] 5 mg PO DAILY 05/26/17 Cyclosporine [Restasis] 1 each OP DAILY 05/26/17 Albuterol Sulfate Inhaler - [Ventolin HFA Inhaler -] 1 - 2 inh PO QID 05/27/17 Fluticasone Prop 0.05% Nasal [Flonase -] 1 spray NS DAILY 05/27/17 Fluticasone/Salmeterol [Advair 250-50 Diskus] 1 each IH DAILY 05/27/17 Tiotropium [place] [Spiriva] 1 inh IH HS 05/27/17 Family Disease History - Family Disease History Family History: Unremarkable (not pertinent to this presentation) Review of Systems - Review of Systems Constitutional: reports: No Symptoms Eyes: reports: No Symptoms HENT: reports: No Symptoms Neck: reports: No Symptoms Cardiovascular: reports: No Symptoms Respiratory: reports: No Symptoms Gastrointestinal: reports: No Symptoms Genitourinary: reports: No Symptoms Neurological: reports: Dizziness - Risk Factors Known Risk Factors: Yes: Hypercholesterolemia, Hypertension Vital Signs: Vital Signs Temperature 99.1 F 07/22/17 05:31 Pulse Rate 105 H 07/22/17 08:18 Respiratory Rate 18 07/22/17 08:18 Blood Pressure 120/93 07/22/17 08:18 O2 Sat by Pulse Oximetry (%) 99 07/22/17 08:22 Constitutional: Yes: Calm Eyes: Yes: Conjunctiva Clear, EOM Intact HENT: Yes: Normocephalic Neck: Yes: Supple Respiratory: Yes: CTA Bilaterally Gastrointestinal: Yes: Soft Cardiovascular: Yes: Regular Rate and Rhythm JVD: No Carotid Bruit: No PMI: Non-Displaced Heart Sounds: Yes: S1, S2 (RRR, no murmurs) Edema: No Neurological: Yes: Alert, Oriented - Other Data Labs, Other Data: CBC, BMP 07/22/17 07:09 07/22/17 07:04 INR, PTT INR 1.09 (0.82-1.09) 07/21/17 15:05 Troponin, BNP 07/21/17 15:05 Troponin I < 0.02 Troponin, BNP 07/21/17 15:05 Troponin I < 0.[address] 106 RSR' Echo: Other (11-08-16: Moderate MAC Aortic sclerosis RVSP: 38 Normal biV function ) Stress Echo: Other (ETT: 10-17-16: 6 Minutes evonne, 85% target. Negative study) Ejection Fraction %: LVEF > or = 40 % Imaging - Results Chest X-ray: Report Reviewed, Image Reviewed Cat Scan: Report Reviewed, Image Reviewed EKG: Image Reviewed Problem List - Problems (1) Syncope Assessment/Plan: -recent issues with hypotension; need to assess for orthostasis -Check orthostatics -Carotid US basically normal -To repeat echo -Tele x 24 hours. -Now also with low grade fever: work up as per PMD Code(s): R55 - SYNCOPE AND COLLAPSE Qualifiers: Syncope type: unspecified Qualified Code(s): R55 - Syncope and collapse (2) HTN (hypertension) Assessment/Plan: -recent fluctuations in BP with amlodipine/benazepril discontinued as outpatient -Will observe BP trend, check orthostatics Code(s): I10 - ESSENTIAL (PRIMARY) HYPERTENSION Qualifiers: Hypertension type: essential hypertension Qualified Code(s): I10 - Essential (primary) hypertension
--- NOTE | 2017-07-22 16:23 | PN ---
Teaching Attending Note Name of Resident: Meenu Traylor ATTENDING PHYSICIAN STATEMENT I saw and evaluated the patient. I reviewed the resident's note and discussed the case with the resident. I agree with the resident's findings and plan as documented. SUBJECTIVE:no repeat episodes since arriving to ER. denies any symptoms prior to syncopal events and none in the past. no recent medicaitons changes. claims medication compliance. denies CP, SOB, fever, chills, N/V/C/D OBJECTIVE: Last Vital Signs Temp Pulse Resp BP Pulse Ox 99.1 F 97 H 18 116/41 99 07/22/17 05:31 07/22/17 15:40 07/22/17 11:50 07/22/17 15:40 07/22/17 11:50 General NAD HEENT no nystagmus, moist mucosa CV S1 S2 RRR no murmur no carotid bruit Lungs CTA B/L no wheezing/rales/rhonchi ASSESSMENT AND PLAN: 66yo F with PMH vertigo, HTN, CHARISSA and COPD presented to the ER after syncope x3 at home 1. Syncope- concern for arrythmia induced due to 3 episodes however could possible be vasovagal as well. check orthostatics. continuous cardiac monitoring. check carotid doppler, echo. cardio consulted. 2. HTN- controlled. cont acei 3. vertigo 4. COPD- no signs of exacerbation. cont inhalers 5. depression 6. dyslipidemia- on statin 7. will cont cardiac monitoring x24H. if no recurrent events on events on monitor will d/c home
--- NOTE | 2017-07-22 19:32 | PN ---
Physical Exam: SUBJECTIVE: Patient seen and examined. Pt denies lightheadedness, dizziness, chest pain, sob, abdominal pain, fever, chills. Pt reports Right wrist pain and swelling improved from yesterday. OBJECTIVE: Vital Signs Period Temp Pulse Resp BP Sys/Matos Pulse Ox Last 24 Hr 98.2 F-99.1 F 90-109 18-18 116-140/41-93 98-99 GENERAL: The patient is awake, alert, and fully oriented, in no acute distress. HEAD: Normal with no signs of trauma. LUNGS: Breath sounds equal, clear to auscultation bilaterally, no wheezes, no crackles, no accessory muscle use. HEART: Regular rate and rhythm, S1, S2 without murmur, rub or gallop. No carotid bruit appreciated. ABDOMEN: Soft, nontender, nondistended, no guarding. EXTREMITIES: Warm, well-perfused, no edema. PSYCH: Normal mood, normal affect. SKIN: Warm, dry, normal turgor, no rashes or lesions noted Laboratory Results - last 24 hr 07/21/17 07/21/17 07/22/17 19:55 21:17 07:04 WBC RBC Hgb Hct MCV MCH MCHC RDW Plt Count MPV D-Dimer 489 H Sodium 142 Potassium 4.2 Chloride 108 H Carbon Dioxide 25 Anion Gap 9 BUN 13 D Creatinine 0.7 D Random Glucose 104 D Hemoglobin A1c % Calcium 9.0 Magnesium 2.1 D Triglycerides 47 Cholesterol 145 Total LDL Cholesterol 47 HDL Cholesterol 97 H Urine Color Straw Urine Appearance Clear Urine pH 5.0 Ur Specific [place] 1.006 Urine Protein Negative Urine Glucose (UA) Negative Urine Ketones Negative Urine Blood Negative Urine Nitrite Negative Urine Bilirubin Negative Urine Urobilinogen Negative Ur Leukocyte Esterase Negative 07/22/17 07/22/17 07:04 07:09 WBC 9.0 RBC 3.75 Hgb 11.9 Hct 36.2 MCV 96.5 H MCH 31.8 MCHC 32.9 RDW 13.4 Plt Count 178 MPV 8.4 D-Dimer Sodium Potassium Chloride Carbon Dioxide Anion Gap BUN Creatinine Random Glucose Hemoglobin A1c % 6.0 Calcium Magnesium Triglycerides Cholesterol Total LDL Cholesterol HDL Cholesterol Urine Color Urine Appearance Urine pH Ur Specific [place] Urine Protein Urine Glucose (UA) Urine Ketones Urine Blood Urine Nitrite Urine Bilirubin Urine Urobilinogen Ur Leukocyte Esterase Active Medications Generic Name Dose Route Start Last Admin Trade Name Freq PRN Reason Stop Dose Admin Acetaminophen 325 mg 07/21/17 20:25 Tylenol - PO Q6H PRN PAIN Albuterol Sulfate 1 amp 07/21/17 20:28 Ventolin 0.083% Nebulizer Soln - NEB Q4H PRN SHORT OF BREATH/WHEEZING Aspirin 81 mg 07/22/17 10:00 07/22/17 10:02 Ecotrin - PO 81 mg DAILY [facility] Administration Atorvastatin Calcium 40 mg 07/21/17 22:00 07/21/17 23:00 Lipitor - PO 40 mg HS [facility] Administration Budesonide/Formoterol Fumarate 2 puff 07/21/17 22:00 07/22/17 10:00 Symbicort 80/4.5mcg - IH 2 puff BID [facility] Administration Cyclobenzaprine HCl 5 mg 07/22/17 10:00 07/22/17 10:03 Flexeril - PO 5 mg DAILY [facility] Administration Fluticasone Propionate 1 spray 07/22/17 10:00 07/22/17 10:04 Flonase - NS 1 spr DAILY [facility] Administration Sodium Chloride 1,000 mls @ 83 mls/hr 07/21/17 20:15 07/21/17 21:23 Normal Saline - IV 83 mls/hr ASDIR [facility] Administration Lisinopril 40 mg 07/22/17 10:00 07/22/17 10:01 Prinivil PO 40 mg DAILY [facility] Administration Metoprolol Tartrate 25 mg 07/22/17 10:00 07/22/17 10:04 Lopressor - PO 25 mg DAILY [facility] Administration Non-Formulary Medication 1 each 07/22/17 10:00 Cyclosporine [Restasis] OP DAILY [facility] Non-Formulary Medication 40 mg 07/21/17 20:15 Omeprazole Pediatric Solution PO DAILY [facility] Nortriptyline HCl 50 mg 07/21/17 22:37 Pamelor - PO HS [facility] Oxycodone HCl 5 mg 07/21/17 20:25 Roxicodone - PO Q6H PRN PAIN Paroxetine HCl 20 mg 07/21/17 20:15 07/22/17 10:05 Paxil - PO 20 mg DAILY [facility] Administration Tiotropium [place] 1 puff 07/21/17 22:00 07/21/17 23:00 Spiriva - IH 1 mg HS [facility] Administration IMAGIN07/21/17 CXR -> mild chronic Left lower lung discord atelectasis/linear parenchymal scarring. No discrete infiltrate or pleural effusion. 07/21/[address] -> no CT evidence of acute intracranial pathology 07/21/[address] -> no fracture 07/21/17 Carotid Doppler -> minimal intimal thickening of [place] common carotid bifurcation, and ?minimal plaque buildup sans evidence of hemodynamically significant stenosis. 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 07/22/17 Echo -> Left ventricular size, thickness and function normal. Right ventricle normal in size and function. Mild mitral annular calcification. Mild TR. ASSESSMENT/PLAN: 66F with PMH of vertigo, CHARISSA, htn, presents s/p syncope x 3 episodes at home. # syncope - likely 2/2 arrhythmia vs vasovagal vs dehydration - EKG -> sinus tachycardia with T wave variation as compared to EKG of - orthostatic VS: supine 116/41, HR 97; sitting 129/85, HR 103; standing 137/ 79, HR 100 - continuous cardiac monitoring -> if no recurrent events on monitor can be D /[facility] home tomorrow - Cardio (Dr. Corea) recs appreciated # hld - continue home med of Lipitor # htn - continue home med of Lopressor - Lisinopril # COPD - continue home meds of Albuterol, Advair, Spiriva # depression - continue home med of Paxil and Nortriptyline # FEN - Fluids: NS @ 83 ml/hr - Electrolytes: wnl, continue to monitor - Nutrition: low sodium diet # Prophylaxis - DVT ppx with [place] SCDs Visit type - Emergency Visit Emergency Visit: Yes ED Registration Date: 07/21/17 Care time: The patient presented to the Emergency Department on the above date and was hospitalized for further evaluation of their emergent condition. - New Patient This patient is new to me today: No - Critical Care Critical Care patient: No
[2017-07-22] MEDS ORDERED: LOPERAMIDE HCL 2 MG CAPSULE PO PRN (19:33)
[2017-07-22] MEDS: TIOTROPIUM BROMIDE 18 MCG/INH (DEVICE W/ 5 CAPSULES) IH SCH (22:00)
[2017-07-22] MEDS: ATORVASTATIN CA 40 MG TABLET (FP) PO SCH (22:02)
[2017-07-22] MEDS: ALPRAZolam 0.25 MG TABLET PO PRN (22:03)
[2017-07-23 08:34] LABS: HEMOGLOBIN 11.2 GM/dL (10.7-15.3); MCH 31.9 pg (25.7-33.7); MCHC 33.1 g/dl (32.0-36.0); MEAN CELL VOLUME 96.4 fl (80-96); MEAN PLT VOLUME 8.5 fl (7.5-11.1); PLATELET COUNT 176 K/MM3 (134-434); RBC 3.53 M/mm3 (3.60-5.2); RDW 13.4 % (11.6-15.6); WHITE BLOOD COUNT 6.2 K/mm3 (4.0-10.0)
[2017-07-23 09:25] LABS: CHLORIDE 107 mmol/L (98-107); POTASSIUM 3.5 mmol/L (3.5-5.1); SODIUM 141 mmol/L (136-145)
[2017-07-23] MEDS: LISINOPRIL 20 MG TABLET (FP) PO SCH (09:31)
[2017-07-23] MEDS: CYCLOBENZAPRINE HCL 10 MG TABLET (FP) PO SCH (09:31)
[2017-07-23] MEDS: ALPRAZolam 0.25 MG TABLET PO PRN (09:31)
[2017-07-23] MEDS: METOPROLOL TARTRATE 25 MG TABLET (FP) PO SCH (09:31)
[2017-07-23] MEDS: ASPIRIN COATED 81 MG TABLET.EC PO SCH (09:32)
[2017-07-23] MEDS: FLUTICASONE PROP 0.05% 16 GM NASAL SPRAY NS SCH (09:32)
[2017-07-23] MEDS: BUDESONIDE/FORMETEROL FUMARATE 80/4.5 mcg INHALER IH SCH (09:32)
--- NOTE | 2017-07-23 09:32 | PN ---
Progress Note, Physician Chief Complaint: Sinus tachy with minimal exertion + Di-dimer - Current Medication List Current Medications: Active Medications Acetaminophen (Tylenol -) 325 mg PO Q6H PRN PRN Reason: PAIN Albuterol Sulfate (Ventolin 0.083% Nebulizer Soln -) 1 amp NEB Q4H PRN PRN Reason: SHORT OF BREATH/WHEEZING Alprazolam (Xanax -) 0.5 mg PO Q8H PRN PRN Reason: ANXIETY Stop: 07/23/17 21:34 Last Admin: 07/22/17 22:03 Dose: 0.5 mg Aspirin (Ecotrin -) 81 mg PO DAILY [facility] Last Admin: 07/22/17 10:02 Dose: 81 mg Atorvastatin Calcium (Lipitor -) 40 mg PO HS [facility] Last Admin: 07/22/17 22:02 Dose: 40 mg Budesonide/Formoterol Fumarate (Symbicort 80/4.5mcg -) 2 puff IH BID [facility] Last Admin: 07/22/17 22:00 Dose: 2 puff Cyclobenzaprine HCl (Flexeril -) 5 mg PO DAILY [facility] Last Admin: 07/22/17 10:03 Dose: 5 mg Fluticasone Propionate (Flonase -) 1 spray NS DAILY [facility] Last Admin: 07/22/17 10:04 Dose: 1 spr Sodium Chloride (Normal Saline -) 1,000 mls @ 83 mls/hr IV ASDIR [facility] Last Admin: 07/21/17 21:23 Dose: 83 mls/hr Lisinopril (Prinivil) 40 mg PO DAILY [facility] Last Admin: 07/22/17 10:01 Dose: 40 mg Loperamide HCl (Imodium -) 2 mg PO Q8H PRN PRN Reason: DIARRHEA Last Admin: 07/22/17 22:07 Dose: 2 mg Metoprolol Tartrate (Lopressor -) 25 mg PO DAILY [facility] Last Admin: 07/22/17 10:04 Dose: 25 mg Metoprolol Tartrate (Lopressor -) 50 mg PO ONCE ONE Stop: 07/23/17 08:44 Non-Formulary Medication (Cyclosporine [Restasis]) 1 each OP DAILY [facility] Non-Formulary Medication (Omeprazole Pediatric Solution) 40 mg PO DAILY [facility] Nortriptyline HCl (Pamelor -) 50 mg PO HS [facility] Last Admin: 07/22/17 22:02 Dose: 50 mg Oxycodone HCl (Roxicodone -) 5 mg PO Q6H PRN PRN Reason: PAIN Paroxetine HCl (Paxil -) 20 mg PO DAILY [facility] Tiotropium [place] (Spiriva -) 1 puff IH HS [facility] Last Admin: 07/22/17 22:00 Dose: 1 puff - Objective Vital Signs: Vital Signs Temperature 99.5 F 07/23/17 06:00 Pulse Rate 90 07/23/17 06:00 Respiratory Rate 18 07/23/17 06:00 Blood Pressure 109/64 07/23/17 06:00 O2 Sat by Pulse Oximetry (%) 97 07/22/17 22:00 Constitutional: Yes: No Distress Eyes: Yes: Conjunctiva Clear Cardiovascular: Yes: Regular Rate and Rhythm, Tachycardia Respiratory: Yes: CTA Bilaterally (no wheezing.) Gastrointestinal: Yes: Soft (non-tender) Edema: No Neurological: Yes: Alert, Oriented Labs: CBC, BMP 07/23/17 07:09 07/23/17 07:09 INR, PTT INR 1.09 (0.82-1.09) 07/21/17 15:05 Laboratory Tests 07/21/17 07/21/17 07/23/17 15:05 19:55 07:09 WBC 6.2 D Hgb 11.2 Plt Count 176 D-Dimer 489 H Potassium Creatinine Troponin I < 0.02 07/23/17 07:09 WBC Hgb Plt Count D-Dimer Potassium 3.5 Creatinine Pending Troponin I - ....Imaging EKG: Image Reviewed (Sinus tach) Problem List - Problems (1) Syncope Code(s): R55 - SYNCOPE AND COLLAPSE Qualifiers: Syncope type: unspecified Qualified Code(s): R55 - Syncope and collapse (2) HTN (hypertension) Code(s): I10 - ESSENTIAL (PRIMARY) HYPERTENSION Qualifiers: Hypertension type: essential hypertension Qualified Code(s): I10 - Essential (primary) hypertension Assessment/Plan Problem List - Problems (1) Syncope -+ D-dimer and Mild PHTN on echo, sinus tach -Check CTA to rule out PE Code(s): R55 - SYNCOPE AND COLLAPSE Qualifiers: Syncope type: unspecified Qualified Code(s): R55 - Syncope and collapse (2) HTN (hypertension) Assessment/Plan: -recent fluctuations in BP with amlodipine/benazepril discontinued as outpatient -Will continue to observe BP Code(s): I10 - ESSENTIAL (PRIMARY) HYPERTENSION Qualifiers: Hypertension type: essential hypertension Qualified Code(s): I10 - Essential (primary) hypertension
[2017-07-23 09:44] LABS: ANION GAP 8 (8-16); BLOOD UREA NITROGEN 11 mg/dL (7-18); CALCIUM 8.5 mg/dL (8.5-10.1); CO2 26 mmol/L (21-32); CREATININE 0.6 mg/dL (0.55-1.02); GLUCOSE,RANDOM 86 mg/dL (74-106)
[2017-07-23] MEDS ORDERED: PARoxetine HCL 20 MG TABLET (FP) PO SCH (10:00)
[2017-07-23 11:18] VITALS: BP 137/77; PULSE 118; TEMP 97.8
[2017-07-23] MEDS ORDERED: METOPROLOL TARTRATE 50 MG TABLET (FP) PO ONE (12:15)
--- NOTE | 2017-07-23 13:46 | DS ---
Physical Exam: SUBJECTIVE: Patient seen and examined. Pt had an anxiety attack last evening after her daughter went home, which was relieved with Xanax. Pt reports she gets these attacks sometimes, and is not alarmed by this occurrence. Pt denies lightheadedness, dizziness, palpitations, chest pain, sob, abdominal pain, fever , chills. Pt feels well and is ready to go home. OBJECTIVE: Vital Signs Period Temp Pulse Resp BP Sys/Matos Pulse Ox Last 24 Hr 97.8 F-99.5 F 90-118 18-21 109-144/41-93 97-97 PHYSICAL EXAM GENERAL: The patient is awake, alert, and fully oriented, in no acute distress. LUNGS: Breath sounds equal, clear to auscultation bilaterally, no wheezes, no crackles, no accessory muscle use. HEART: Regular rate and rhythm, S1, S2 without murmur, rub or gallop. No carotid bruit appreciated. ABDOMEN: Soft, nontender, nondistended, no guarding. EXTREMITIES: Warm, well-perfused, no edema. PSYCH: Normal mood, normal affect. SKIN: Warm, dry, normal turgor, no rashes or lesions noted LABS Laboratory Results - last 24 hr 07/23/17 07/23/17 07:09 07:09 WBC 6.2 D RBC 3.53 L Hgb 11.2 Hct 34.0 MCV 96.4 H MCH 31.9 MCHC 33.1 RDW 13.4 Plt Count 176 MPV 8.5 Sodium 141 Potassium 3.5 Chloride 107 Carbon Dioxide 26 Anion Gap 8 BUN 11 Creatinine 0.6 Random Glucose 86 Calcium 8.5 HOSPITAL COURSE: Date of Admission:07/21/17 Date of Discharge: 07/23/17 66F with PMH of vertigo, CHARISSA, htn, presents s/p syncope x 3 episodes at home. Orthostatic VS changes (-). EKG showing sinus rhythm. No events on continuous cardiac monitoring throughout hospitalization. Cardiology recommendations (Dr. Corea) appreciated. Microbiology 07/21/17 21:17 Urine - Urine Clean Catch Urine Culture - Final NO GROWTH OBTAINED 07/21/17 CXR -> mild chronic Left lower lung discord atelectasis/linear parenchymal scarring. No discrete infiltrate or pleural effusion. 07/21/[address] -> no CT evidence of acute intracranial pathology 07/21/[address] -> no fracture 07/21/17 Carotid Doppler -> minimal intimal thickening of [place] common carotid bifurcation, and ?minimal plaque buildup sans evidence of hemodynamically significant stenosis. 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 07/22/17 Echo -> Left ventricular size, thickness and function normal. Right ventricle normal in size and function. Mild mitral annular calcification. Mild TR. Pt's Metoprolol Succinate dose increased to 50mg daily. Pt stable for discharge home. Minutes to complete discharge: 40 Discharge Summary Reason For Visit: CLOSED HEAD INJURY/SYNCOPE Current Active Problems Syncope (Acute) Asthma (Chronic) Depression (Chronic) GERD (gastroesophageal reflux disease) (Chronic) Generalized anxiety disorder (Chronic) HTN (hypertension) (Chronic) Condition: Improved - Instructions Diet, Activity, Other Instructions: PCP: Dr. Narinder Hall Pulm: Dr. Dumont GI: Dr. Thompson ENT: Dr. Ball Cardio: Dr. Edith Bailey, Dr. Dale Corea You were hospitalized due to the reported fainting spells. Please make sure to stay hydrated as this can be a cause of fainting spells. Changes to your medications: - Stop taking Amlodipine (Norvasc) - Metoprolol Succinate (Toprol XL) dose increased to 50mg daily Please continue taking your other home medications as prescribed. Follow-ups: - with your Primary Care Doctor (Dr. Hall) in 1 week. - with your Community Health Program Representative on Friday morning, 07/25/17. Please return to the hospital immediately if you experience persistent or increased lightheadedness, dizziness, loss of consciousness, chest pain, palpitations, or for any medical emergency. Referrals: Dale Corea MD [Staff Physician] - 07/25/17 Disposition: HOME - Home Medications Comprehensive Discharge Medication List: Ambulatory Orders Paroxetine HCl [Paxil -] 20 mg PO DAILY 03/06/12 Aspirin Coated [Ecotrin -] 81 mg PO DAILY 09/15/15 Nortriptyline HCl [Pamelor -] 50 mg PO HS 09/15/15 Omeprazole [Prilosec (RX)] 40 mg PO DAILY 09/15/15 Oxycodone HCl/Acetaminophen [Percocet 5-325 mg Tablet] 1 tab PO Q6H PRN Atorvastatin Ca [Lipitor] 40 mg PO HS 05/26/17 Benazepril HCl [Lotensin] 40 mg PO DAILY 05/26/17 Cyclobenzaprine HCl [Flexeril -] 5 mg PO DAILY 05/26/17 Cyclosporine [Restasis] 1 each OU DAILY 05/26/17 Albuterol Sulfate Inhaler - [Ventolin HFA Inhaler -] 1 - 2 inh PO QID 05/27/17 Fluticasone Prop 0.05% Nasal [Flonase -] 1 spray NS DAILY 05/27/17 Fluticasone/Salmeterol [Advair 250-50 Diskus] 1 each IH DAILY 05/27/17 Tiotropium [place] [Spiriva] 1 inh IH HS 05/27/17 Loperamide HCl [Imodium -] 2 mg PO Q8H PRN capsule 07/23/17 Metoprolol Tartrate 50 mg PO DAILY #30 tablet 07/23/17 This patient is new to me today: No Emergency Visit: Yes ED Registration Date: 07/21/17 Care time: The patient presented to the Emergency Department on the above date and was hospitalized for further evaluation of their emergent condition. Critical Care patient: No - Discharge Referral Referred to [facility] No
--- NOTE | 2017-07-23 13:49 | PN ---
Teaching Attending Note Name of Resident: Meenu Traylor ATTENDING PHYSICIAN STATEMENT I saw and evaluated the patient. I reviewed the resident's note and discussed the case with the resident. I agree with the resident's findings and plan as documented. SUBJECTIVE:asymptomtatic. denies CP, SOB, palpitations, fever, chills, LOC, N/V/ C/D OBJECTIVE: Last Vital Signs Temp Pulse Resp BP Pulse Ox 97.8 F 118 H 20 137/77 97 07/23/17 10:00 07/23/17 10:00 07/23/17 10:00 07/23/17 10:00 07/23/17 10:00 General NAD HEENT no nystagmus, moist mucosa CV S1 S2 tachycardic no murmur Lungs CTA B/L no wheezing/rales/rhonchi ASSESSMENT AND PLAN: 66yo F with PMH vertigo, HTN, CHARISSA and COPD presented to the ER after syncope x3 at home 1. Syncope- noted sinus tachycardia on the monitor. however asymptomatic. no repeat episodes while in the hospital.workup negative. evaluate by cardiology. 2. Sinus tachycardia- asymptomatic. CTPE done and negative for PE. increased dose of metoprolol with improvement in HR. currently 85. will d/c on increased dose of metoprolol 3. HTN- controlled. cont acei. instructed to stop norvasc (combination pill at home) 4. vertigo 5. COPD- no signs of exacerbation. cont inhalers 6. depression 7. dyslipidemia- on statin 8. spoke with cardiology and patient. informed of medication changes. is instructed to f/u with bridal stylist sales consultant on friday for BP check
== END 2017-07-23 14:29 | disposition home health service (06) ==
LOC: JER 14:37 → JERBED 18:53 → J4W 07-22 18:10
PROVIDERS: ADMIT Internal Medicine; ATTEND Internal Medicine
PROC: 3E033GC Introduction of Other Therapeutic Substance into Peripheral Vein, Percutaneous Approach (ICD-10-PCS; principal; 2017-07-21)
PROC: 3E0F7GC Introduction of Other Therapeutic Substance into Respiratory Tract, Via Natural or Artificial Opening (ICD-10-PCS; 2017-07-21)
DX: R55 Syncope and collapse (principal); S09.90XA Unspecified injury of head, initial encounter; I10 Essential (primary) hypertension; I25.10 Atherosclerotic heart disease of native coronary artery without angina pectoris; G47.33 Obstructive sleep apnea (adult) (pediatric); J45.909 Unspecified asthma, uncomplicated; D50.9 Iron deficiency anemia, unspecified; K21.9 Gastro-esophageal reflux disease without esophagitis; E78.5 Hyperlipidemia, unspecified; K76.0 Fatty (change of) liver, not elsewhere classified; F41.1 Generalized anxiety disorder; F32.9 Major depressive disorder, single episode, unspecified; Z99.89 Dependence on other enabling machines and devices; Z88.1 Allergy status to other antibiotic agents; Z96.653 Presence of artificial knee joint, bilateral; Z91.19 Patient's noncompliance with other medical treatment and regimen; W18.39XA Other fall on same level, initial encounter; Y93.89 Activity, other specified; Y92.9 Unspecified place or not applicable
CPT/HCPCS: 36415; 70450-TC; 71045-TC; 71275-TC; 72125-TC; 73030-TC-RT; 73110-TC-RT; 80048; 80053; 80061; 81003; 82550; 82553; 83036; 83721; 83735; 84484; 85025; 85027; 85379; 85610; 87086; 93005; 93010; 93306-TC; 93880-TC; 99285-25; G0378

== ENCOUNTER 2018-01-10 10:56 | Observation (INO) | payer BC, MEDICARE ==
[2018-01-10 11:00] VITALS: BMI 39.4
[2018-01-10] MEDS ORDERED: SODIUM CHLORIDE 1,000 ML IV STA (11:09)
[2018-01-10 11:52] LABS: BASO % 0.7 % (0-2.0); EOS % 3.1 % (0-4.5); HEMATOCRIT 32.5 % (32.4-45.2); LYMPH % 37.4 % (8-40); MCH 31.7 pg (25.7-33.7); MCHC 33.7 g/dl (32.0-36.0); MEAN CELL VOLUME 93.9 fl (80-96); MEAN PLT VOLUME 7.8 fl (7.5-11.1); NEUT % 45.8 % (42.8-82.8); PLATELET COUNT 212 K/MM3 (134-434); RBC 3.46 M/mm3 (3.60-5.2); RDW 13.6 % (11.6-15.6); WHITE BLOOD COUNT 7.2 K/mm3 (4.0-10.0)
--- NOTE | 2018-01-10 12:15 | PDOC ---
History of Present Illness - General Chief Complaint: Syncope/Near Syncope Stated Complaint: FALL/ NEAR SYNCOPE, DIZZINESS Time Seen by Provider: 01/10/18 11:06 History Source: Patient Exam Limitations: No Limitations - History of Present Illness Initial Comments: 01/10/18 12:15 67-year-old female presents the emergency room with complaints of mild dizziness describing as if the room was spinning this morning while walking to the kitchen. Patient states the next thing that she remembers she awoke up on the bathroom floor with unknown down time but approximated to be one hour. Patient denies history of seizures, recent change in medication, recent illness. Patient states remains dizzy without complaints of visual changes, headache, chest pain or shortness of breath. Patient states has history of vertical but does not take medication. Patient now complaining of a bump to her nasal bridge and upper forehead. Patient also denies fever, chills, urinary or bowel complaints. patient states when she awoke she walked to a phone and called her daughter. Presenting Symptoms: Dizziness, Syncope Timing/Duration: reports: intermittent Associated Symptoms: Yes: Dizziness, Syncope Past History - Past Medical History Allergies/Adverse Reactions: Allergies Allergy/AdvReac Type Severity Reaction Status Date / Time vancomycin Allergy Severe Verified 01/10/18 11:00 Home Medications: Ambulatory Orders Paroxetine HCl [Paxil -] 20 mg PO DAILY 03/06/12 Aspirin Coated [Ecotrin -] 81 mg PO DAILY 09/15/15 Nortriptyline HCl [Pamelor -] 50 mg PO HS 09/15/15 Omeprazole [Prilosec (RX)] 40 mg PO DAILY 09/15/15 Oxycodone HCl/Acetaminophen [Percocet 5-325 mg Tablet] 1 tab PO Q6H PRN Atorvastatin Ca [Lipitor] 40 mg PO HS 05/26/17 Benazepril HCl [Lotensin] 40 mg PO DAILY 05/26/17 Cyclobenzaprine HCl [Flexeril -] 5 mg PO DAILY 05/26/17 Cyclosporine [Restasis] 1 each OU DAILY 05/26/17 Albuterol Sulfate Inhaler - [Ventolin HFA Inhaler -] 1 - 2 inh PO QID 05/27/17 Fluticasone Prop 0.05% Nasal [Flonase -] 1 spray NS DAILY 05/27/17 Fluticasone/Salmeterol [Advair 250-50 Diskus] 1 each IH DAILY 05/27/17 Tiotropium [place] [Spiriva] 1 inh IH HS 05/27/17 Metoprolol Succinate 50 mg PO DAILY #30 tab.er.24h 07/23/17 Metoprolol Tartrate 25 mg PO HS 01/10/18 Anemia: Yes (IRON DEFICIENCY) Asthma: Yes Cancer: No Cardiac Disorders: Yes (CHEST PAIN,LEFT VENTRICULAR HYPERTROPHY) CVA: No COPD: No CHF: No Dementia: No Diabetes: No GI Disorders: Yes (ACID REFLUX, ABD. PAIN. CHRONIC CONSTIPATION DRUG INDUCED) Disorders: No HTN: Yes Hypercholesterolemia: Yes Liver Disease: Yes (FATTY LIVER) Seizures: No Thyroid Disease: No - Surgical History Abdominal Surgery: Yes (LIPOMA ON ABDOMEN REMOVED) Appendectomy: Yes Cardiac Surgery: No Cholecystectomy: No Lung Surgery: No Neurologic Surgery: No Orthopedic Surgery: Yes (TOTAL KNEE REPLACEMENTS) - Suicide/Smoking/Psychosocial Hx Smoking Status: No Smoking History: Never smoked Have you smoked in the past 12 months: No Number of Cigarettes Smoked Daily: 0 Hx Alcohol Use: No Drug/Substance Use Hx: No Substance Use Type: None Hx Substance Use Treatment: No Patient Lives Alone: Yes Lives with/in: lives alone Cardiac Specific PMH - Complaint Specific PMHX Pacemaker: No Review of Systems - Review of Systems Able to Perform ROS?: No Constitutional: No: Symptoms Reported HEENTM: No: Symptoms Reported Respiratory: No: Symptoms reported Cardiac (ROS): Yes: Lightheadedness ABD/GI: No: Symptoms Reported : No: Symptoms Reported Musculoskeletal: No: Symptoms Reported Integumentary: Yes: Lumps Neurological: Yes: Dizziness. No: Headache *Physical Exam - Vital Signs Last Vital Signs Temp Pulse Resp BP Pulse Ox 98.1 F 89 18 139/74 95 01/10/18 10:58 01/10/18 11:30 01/10/18 10:58 01/10/18 11:30 01/10/18 12:56 - Physical Exam General Appearance: Yes: Nourished, Appropriately Dressed. No: Apparent Distress HEENT: positive: EOMI, ELMER, TMs Normal, Pharynx Normal. negative: Pale Conjunctivae Neck: positive: Supple Respiratory/Chest: positive: Lungs Clear, Normal Breath Sounds. negative: Respiratory Distress, Accessory Muscle Use Cardiovascular: positive: Regular Rhythm, Regular Rate. negative: Murmur Gastrointestinal/Abdominal: positive: Soft. negative: Tenderness Musculoskeletal: negative: CVA Tenderness Extremity: positive: Normal Capillary Refill. negative: Pedal Edema Integumentary: positive: Normal Color, Warm, Moist Neurologic: positive: Normal Mood/Affect, Motor Strength 5/5 Heart Score/ECG Review - ECG Intrepretation Rhythm: Regular Rhythm (Rate 87. Normal sinus rhythm. LVH. Intervals are regular.) ED Treatment Course - LABORATORY CBC & Chemistry Diagram: 01/10/18 10:40 01/10/18 10:40 - ADDITIONAL ORDERS Additional order review: Laboratory Results 01/10/18 01/10/18 13:00 10:40 Sodium 140 Potassium 4.2 Chloride 105 Carbon Dioxide 24 Anion Gap 11 BUN 29 H Creatinine 1.2 H Creat Clearance w eGFR 45.09 Random Glucose 143 H Calcium 8.6 Total Bilirubin 0.4 AST 21 ALT 25 Alkaline Phosphatase 99 Creatine Kinase 327 H Creatine Kinase Index 1.5 CK-MB (CK-2) 4.96 H Troponin I < 0.02 Total Protein 7.4 Albumin 3.8 Urine Color Yellow Urine Appearance Clear Urine pH 5.0 Ur Specific [place] 1.021 Urine Protein Negative Urine Glucose (UA) Negative Urine Ketones Negative Urine Blood Negative Urine Nitrite Negative Urine Bilirubin Negative Urine Urobilinogen Negative Ur Leukocyte Esterase Trace Urine WBC (Auto) 5 Urine RBC (Auto) 1 Ur Epithelial Cells Few Hyaline Casts 11 Urine Mucus Rare 01/10/18 10:40 RBC 3.46 L MCV 93.9 MCHC 33.7 RDW 13.6 MPV 7.8 Neutrophils % 45.8 D Lymphocytes % 37.4 D Monocytes % 13.0 H Eosinophils % 3.1 D Basophils % 0.7 D - RADIOLOGY Radiology Studies Ordered: Category Date Time Status FACIAL BONES CT W/O CONTRAST [CT] Stat CT Scan 01/10/18 11:[address] WITHOUT CONTRAST [CT] Stat CT Scan 01/10/18 11:39 Completed CHEST X-RAY PORTABLE* [RAD] Stat Radiology 01/10/18 11:08 Completed - Medications Given in the ED: ED Medications Discontinued Medications Generic Name Dose Route Start Last Admin Trade Name Freq PRN Reason Stop Dose Admin Sodium Chloride 1,000 mls @ 1,000 mls/hr 01/10/18 11:09 01/10/18 11:45 Normal Saline - IV 01/10/18 12:08 1,000 mls/hr ASDIR STA Administration Medical Decision Making - Medical Decision Making 01/10/18 12:09 Patient was syncopal episode after feeling dizzy. Patient with unknown down time approximately one hour concerning for other etiology including rhabdomyolysis versus intracranial pathology. Patient also concerning for acute coronary syndrome or other etiology. Patient ordered for head CT, facial CT, cardiac workup, IV fluids and orthostatic vitals. 01/10/18 13:48 Chest x-ray shows no significant change since 07/21/2017. 01/10/18 13:49 Laboratory Tests 01/10/18 01/10/18 01/10/18 10:40 10:40 13:00 WBC 7.2 Hgb 11.0 Hct 32.5 Neutrophils % 45.8 D Sodium 140 Potassium 4.2 Chloride 105 Carbon Dioxide 24 Anion Gap 11 BUN 29 H Creatinine 1.2 H Creat Clearance w eGFR 45.09 Random Glucose 143 H Calcium 8.6 Total Bilirubin 0.4 AST 21 ALT 25 Alkaline Phosphatase 99 Creatine Kinase 327 H Creatine Kinase Index 1.5 CK-MB (CK-2) 4.96 H Troponin I < 0.02 Urine Bilirubin Negative Urine Urobilinogen Negative Ur Leukocyte Esterase Trace Urine WBC (Auto) 5 Urine RBC (Auto) 1 01/10/18 14:02 CT of the head shows no acute intracranial pathology. Facial CT results pending. Microblog sent to hospitalist. 01/10/18 14:[address] shows no discrete fracture. 01/10/18 15:01 Case discussed with hospitalist and accepted to service. Patient be admitted to telemetry. Consultation placed in computer for Dr. Corea. patient resting with no complaints presently. *DC/Admit/Observation/Transfer Diagnosis at time of Disposition: Syncope, CHI (closed head injury) - Discharge Dispostion Decision to Admit order: Yes Decision to Admit order Date/Time: Decision to Admit Order Category Date Time Status Decision to Admit to Hospital Routine Admission 01/10/18 15:01 Ordered - Referrals Referrals: Narinder Dhillon [Primary Care Provider] - - Patient Instructions - Post Discharge Activity
[2018-01-10 12:24] LABS: ALBUMIN 3.8 g/dl (3.4-5.0); ANION GAP 11 (8-16); BILIRUBIN,TOTAL 0.4 mg/dL (0.2-1.0); BLOOD UREA NITROGEN 29 mg/dL (7-18); CALCIUM 8.6 mg/dL (8.5-10.1); CHLORIDE 105 mmol/L (98-107); CO2 24 mmol/L (21-32); CREATININE 1.2 mg/dL (0.55-1.02); GLUCOSE,RANDOM 143 mg/dL (74-106); POTASSIUM 4.2 mmol/L (3.5-5.1); SGOT/AST 21 U/L (15-37); SGPT/ALT 25 U/L (12-78); SODIUM 140 mmol/L (136-145); TOT PROT 7.4 g/dl (6.4-8.2)
[2018-01-10 12:27] LABS: ALK PHOS 99 U/L (45-117)
[2018-01-10 13:11] LABS: URINE APPEARANCE CLEAR; URINE BILIRUBIN NEGATIVE (<2.0 mg/dL); URINE COLOR YELLOW; URINE GLUCOSE (UA) NEGATIVE (NEGATIVE); URINE KETONE NEGATIVE (NEGATIVE); URINE LEUK ESTERASE TRACE (NEGATIVE); URINE NITRITE NEGATIVE (NEGATIVE); URINE PROTEIN NEGATIVE (NEGATIVE); URINE UROBILINOGEN NEGATIVE mg/dL (0.2-1.0)
[2018-01-10 13:13] LABS: EPI CELLS FEW /HPF (FEW); URINE HYALINE CAST 11 /lpf; URINE MUCUS RARE
--- NOTE | 2018-01-10 16:43 | HP ---
CHIEF COMPLAINT: fall at home with LOC loss PCP: Dr. Narinder Hall Pulm: Dr. Dumont HISTORY OF PRESENT ILLNESS: Patient s a 67 year old female with a significant past medical history of asthma /COPD, dizziness, hypertension, implanted loop recorder placed 09/2017 and falls. She presents to the ED today with complaints of worsening dizziness as if the "room was spinning" this morning while ambulating in her home. Patient recalls that she fell and woke up in the bathroom and not sure how long she was down for but estimates that it was approximately for 1 hour. She sustained a bruise on her nasal bridge and upper forehead and reports hitting her head. Upon waking she called her daughter. She denies any headaches, chest pain or shortness of breath. In the ED she was sitting up in bed in no acute distress, still having dizziness. She denies any past seizure activity, was not incontinent after episode. ER course was notable for: (1) negative head CT (2) implanted loop recorder (3) negative facial ct Recent Travel: PAST MEDICAL HISTORY: asthma/COPD, dizziness, hypertension, implanted loop recorder placed 09/2017 and falls. PAST SURGICAL HISTORY: Social History: Smoking: n/a Alcohol: n/a Drugs: n/a Family History: Allergies vancomycin Allergy (Severe, Verified 01/10/18 11:00) red man syndrome HOME MEDICATIONS: Home Medications Medication Instructions Recorded Paroxetine HCl [Paxil -] 20 mg PO DAILY 03/06/12 Aspirin Coated [Ecotrin -] 81 mg PO DAILY 09/15/15 Nortriptyline HCl [Pamelor -] 50 mg PO HS 09/15/15 Omeprazole [Prilosec (RX)] 40 mg PO DAILY 09/15/15 Oxycodone HCl/Acetaminophen 1 tab PO Q6H PRN 12/07/15 [Percocet 5-325 mg Tablet] Atorvastatin Ca [Lipitor] 40 mg PO HS 05/26/17 Benazepril HCl [Lotensin] 40 mg PO DAILY 05/26/17 Cyclobenzaprine HCl [Flexeril -] 5 mg PO DAILY 05/26/17 Cyclosporine [Restasis] 1 each OU DAILY 05/26/17 Albuterol Sulfate Inhaler - 1 - 2 inh PO QID 05/27/17 [Ventolin HFA Inhaler -] Fluticasone Prop 0.05% Nasal 1 spray NS DAILY 05/27/17 [Flonase -] Fluticasone/Salmeterol [Advair 1 each IH DAILY 05/27/17 250-50 Diskus] Tiotropium [place] [Spiriva] 1 inh IH HS 05/27/17 Metoprolol Succinate 50 mg PO DAILY #30 tab.er.24h 07/23/17 Metoprolol Tartrate 25 mg PO HS 01/10/18 PHYSICAL EXAMINATION Vital Signs - 24 hr 01/10/18 01/10/18 01/10/18 10:58 11:30 12:56 Temperature 98.1 F Pulse Rate 92 H Pulse Rate [ Left Radial] Pulse Rate [ 90 Right side Sitting] Pulse Rate [ 94 H Right side Standing] Pulse Rate [ 89 Supine] Respiratory 18 Rate Blood Pressure 145/74 Blood Pressure [Left Arm] Blood Pressure 142/78 [Right side Sitting] Blood Pressure 126/88 [Right side Standing] Blood Pressure 139/74 [Supine] O2 Sat by Pulse 99 95 Oximetry (%) 01/10/18 16:00 Temperature 98.5 F Pulse Rate Pulse Rate [ 75 Left Radial] Pulse Rate [ Right side Sitting] Pulse Rate [ Right side Standing] Pulse Rate [ Supine] Respiratory 20 Rate Blood Pressure Blood Pressure 125/77 [Left Arm] Blood Pressure [Right side Sitting] Blood Pressure [Right side Standing] Blood Pressure [Supine] O2 Sat by Pulse 96 Oximetry (%) GENERAL: Awake, alert, and fully oriented, in no acute distress. HEAD: Normal with no signs of trauma. EYES: Pupils equal, round and reactive to light, extraocular movements intact, sclera anicteric, conjunctiva clear. No lid lag. EARS, NOSE, THROAT: Ears normal, nares patent, oropharynx clear without exudates. Moist mucous membranes. NECK: Normal range of motion, supple without lymphadenopathy, JVD, or masses. LUNGS: Breath sounds equal, clear to auscultation bilaterally. No wheezes, and no crackles. No accessory muscle use. HEART: Regular rate and rhythm, normal S1 and S2 without murmur, rub or gallop. ABDOMEN: Soft, nontender, not distended, normoactive bowel sounds, no guarding, no rebound, no masses. No hepatomegaly or splenomegaly. MUSCULOSKELETAL: Normal range of motion at all joints. No bony deformities or tenderness. No CVA tenderness. UPPER EXTREMITIES: 2+ pulses, warm, well-perfused. No cyanosis. No clubbing. No peripheral edema. LOWER EXTREMITIES: 2+ pulses, warm, well-perfused. No calf tenderness. No peripheral edema. NEUROLOGICAL: Cranial nerves II-XII intact. Normal speech. Normal gait. PSYCHIATRIC: Cooperative. Good eye contact. Appropriate mood and affect. SKIN: Warm, dry, normal turgor, no rashes or lesions noted, normal capillary refill. Laboratory Results - last 24 hr 01/10/18 01/10/18 01/10/18 10:40 10:40 13:00 WBC 7.2 RBC 3.46 L Hgb 11.0 Hct 32.5 MCV 93.9 MCH 31.7 MCHC 33.7 RDW 13.6 Plt Count 212 D MPV 7.8 Absolute Neuts (auto) 3.3 Neutrophils % 45.8 D Lymphocytes % 37.4 D Monocytes % 13.0 H Eosinophils % 3.1 D Basophils % 0.7 D Nucleated RBC % 0 Sodium 140 Potassium 4.2 Chloride 105 Carbon Dioxide 24 Anion Gap 11 BUN 29 H Creatinine 1.2 H Creat Clearance w eGFR 45.09 Random Glucose 143 H Calcium 8.6 Total Bilirubin 0.4 AST 21 ALT 25 Alkaline Phosphatase 99 Creatine Kinase 327 H Creatine Kinase Index 1.5 CK-MB (CK-2) 4.96 H Troponin I < 0.02 Total Protein 7.4 Albumin 3.8 Urine Color Yellow Urine Appearance Clear Urine pH 5.0 Ur Specific [place] 1.021 Urine Protein Negative Urine Glucose (UA) Negative Urine Ketones Negative Urine Blood Negative Urine Nitrite Negative Urine Bilirubin Negative Urine Urobilinogen Negative Ur Leukocyte Esterase Trace Urine WBC (Auto) 5 Urine RBC (Auto) 1 Ur Epithelial Cells Few Hyaline Casts 11 Urine Mucus Rare ASSESSMENT/PLAN: Patient s a 67 year old female with a significant past medical history of asthma /COPD, dizziness, hypertension, implanted loop recorder placed 09/2017 and falls. She presents to the ED today with complaints of worsening dizziness as if the "room was spinning" this morning while ambulating in her home. Patient recalls that she fell and woke up in the bathroom and not sure how long she was down for but estimates that it was approximately for 1 hour. She sustained a bruise on her nasal bridge and upper forehead and reports hitting her head. Upon waking she called her daughter. She denies any headaches, chest pain or shortness of breath. In the ED she was sitting up in bed in no acute distress, still having dizziness. She denies any past seizure activity, was not incontinent after episode. Imaging: Facial bone CT: negative for fracture Head CT: negative Neuro Syncope/Fall/Vertigo: Concern for arrhythmias however, possible vasovagal episode vs. seizures? . Patient reports LOC loss. Has implanted loop recorder placed 09/2017 of this year. Will check orthostatics and monitor on cardiac unit. Trend trops. Will order carotid doppler, echocardiogram. Cardiology consulted. Will consult neuro as patient has history of multiple falls and to rule out seizures. Renal SABRINA/mild rhabdo.: Patient on floor for apx 1 hour s/p fall. Creat 2.2 with mild rhabdo. Start IVF. Card: Hypertension: Continue home meds, hold deborah secondary to SABRINA. orthostatics negative HLD: hold lipitor until rhabdo resolved Pulm: Asthma/COPD: Not wheezing on exam, lungs diminished bilaterally,will continue home inhalers, duonebs prn FEN ns @ 100 monitor electrolytes low salt diet prophy: Physical therapy SCDs Visit type - Emergency Visit Emergency Visit: Yes ED Registration Date: 01/10/18 Care time: The patient presented to the Emergency Department on the above date and was hospitalized for further evaluation of their emergent condition. - New Patient This patient is new to me today: Yes Date on this admission: 01/11/18 - Critical Care Critical Care patient: No Hospitalist Screening - Colonoscopy Questionnaire Colonoscopy Questionnaire: Colonoscopy Questionnaire - Patient: 50 - 75 years old and never had a screening colonoscopy: Unknown History of colon or rectal polyps, or CA: Unknown History of IBD, Crohn's disease or UC: Unknown History of abdominal radiation therapy as a child: Unknown - Relative: 1 with colon or rectal CA, or polyps at age 60 or younger: Unknown Colon or rectal CA diagnosed at age 45 or younger: Unknown Multiple relatives with colon or rectal CA: Unknown - Outcome: Screening Result: Negative Screen
[2018-01-10] MEDS ORDERED: ALBUTEROL SO4 2.5/IPRATROPIUM 0.5 INH SOL 3 ML VIAL.NEB. NEB ONE ×2 (17:53→18:00)
[2018-01-10] MEDS: SODIUM CHLORIDE 1,000 ML IV SCH (18:03)
[2018-01-10] MEDS ORDERED: ALBUTEROL SO4 2.5/IPRATROPIUM 0.5 INH SOL 3 ML VIAL.NEB. NEB PRN (18:58)
[2018-01-10] MEDS ORDERED: NORTRIPTYLINE HCL 50 MG CAPSULE PO SCH (22:00)
[2018-01-10] MEDS ORDERED: NORTRIPTYLINE HCL 25 MG CAPSULE PO SCH (22:14)
[2018-01-10] MEDS ORDERED: PT OWN MED DRAWER 7, Y5N ONE (22:26)
[2018-01-10] MEDS: busPIRone HCL 5 MG TABLET PO SCH (22:44)
[2018-01-10] MEDS: BUDESONIDE/FORMETEROL FUMARATE 80/4.5 mcg INHALER IH SCH (22:45)
[2018-01-10] MEDS: NORTRIPTYLINE HCL 25 MG CAPSULE PO SCH (22:45)
[2018-01-10] MEDS: TIOTROPIUM BROMIDE 18 MCG CAPSULES IH SCH (22:45)
[2018-01-10] MEDS: ACETAMINOPHEN 325 MG TABLET (FP) PO PRN (22:53)
[2018-01-11] MEDS ORDERED: PT OWN MED DRAWER 7, Y5N ONE ×3 (06:19→21:03)
--- NOTE | 2018-01-11 08:16 | CON.CARD ---
Cardiology Consult (text) - Consultation Consultation Note: Consult Dictated IMP: Recurrent syncope, s/p loop recorder ([employer]) Admitted with syncope REC: Echo Will interrogate loop recorder Orthostatics Cont tele
--- NOTE | 2018-01-11 09:29 | CONS ---
DATE OF CONSULTATION: 01/11/2018 Consultation is requested by Dr. Cooney for syncope. The patient is a 67-year-old female known to us from office practice with a past medical history of depression/anxiety, hypertension, asthma, hyperlipidemia, and recurrent, unexplained syncope. She underwent a loop recorder placement at [facility] in September 2017 for recurrent syncope with previous unremarkable cardiac workup. She is again admitted with an episode of syncope that occurred at home. She remembers being in her kitchen, cleaning, and then remembers waking up in the bathroom with head trauma to the bridge of the nose and anterior forehead. She denies any chest pain, shortness of breath, palpitations. She does not remember walking into the bathroom. Interestingly, she does remember hitting her face, but has no idea how she got into the bathroom. She currently is chest pain free, in no acute distress. She had a head CT and facial bone CT with no fracture and no acute intracranial pathology. She has allergies to VANCOMYCIN. CURRENT MEDICATIONS: Tylenol 650 p.o. q.6 p.r.n.; albuterol/ipratropium inhaler q.6 p.r.n.; aspirin 81 mg daily; Symbicort 2 puffs b.i.d.; BuSpar 15 mg p.o. daily; Lopressor 50 mg p.o. daily; Pamelor 50 mg p.o. at bedtime; Paxil 20 mg p.o. daily; and Spiriva. FAMILY HISTORY: Noncontributory. SOCIAL HISTORY: Nonsmoker. PHYSICAL EXAMINATION: Vital Signs: Afebrile, temperature 97.6, pulse 93 and sinus rhythm, blood pressure 150/86, oxygen saturation 97% and 98% on room air. Neck: No JVD, no bruits. Heart: Regular without murmurs. Chest: Clear. Abdomen: Soft, nontender. No rebound or guarding. Extremities: No edema. Presenting ECG showed normal sinus rhythm at 87 beats/min with LVH, QTc was normal at 428 msec, QRS 88 msec. LABORATORIES: Urinalysis negative. CBC normal. Sodium 140, BUN 29, creatinine 1.2. CK, troponin negative x3 sets. IMPRESSION: 1. History of recurrent syncope, status post Medtronic loop recorder, now again with recurrent syncope. 2. BUN:creatinine ratio indicates probable prerenal state/dehydration. RECOMMENDATIONS: 1. Echocardiogram and carotid ultrasound. 2. Telemetry. 3. Will have [employer] come and interrogate the loop recorder to rule out arrhythmia. 4. Check orthostatics, hydrate, as her BUN:creatinine ratio indicates possible prerenal state/orthostasis as the etiology. 5. Would also consider neurological evaluation to rule out seizures. Thank you for the consultation. ÓSCAR JUAREZ M.D. [id number]
--- NOTE | 2018-01-11 09:34 | EKG ---
Test Reason : Blood Pressure : / mmHG Vent. Rate : 087 BPM Atrial Rate : 087 BPM P-R Int : 136 ms QRS Dur : 088 ms QT Int : 356 ms P-R-T Axes : 028 003 010 degrees QTc Int : 428 ms NORMAL SINUS RHYTHM MINIMAL VOLTAGE CRITERIA FOR LVH, MAY BE NORMAL VARIANT WHEN COMPARED WITH ECG OF 21-JUL-2017 15:03, NONSPECIFIC T WAVE ABNORMALITY, IMPROVED IN INFERIOR LEADS Confirmed by LARRY GAY, ÓSCAR ([id number]) on 01/11/2018 9:34:21 AM Referred By: Confirmed By:ÓSCAR JUAREZ MD
[2018-01-11 10:27] LABS: BASO % 0.5 % (0-2.0); EOS % 3.7 % (0-4.5); HEMATOCRIT 33.8 % (32.4-45.2); HEMOGLOBIN 11.4 GM/dL (10.7-15.3); MCH 31.3 pg (25.7-33.7); MCHC 33.6 g/dl (32.0-36.0); MEAN CELL VOLUME 93.3 fl (80-96); MONO % 10.9 % (3.8-10.2); NEUT % 56.9 % (42.8-82.8); PLATELET COUNT 206 K/MM3 (134-434); RBC 3.62 M/mm3 (3.60-5.2); RDW 13.4 % (11.6-15.6); WHITE BLOOD COUNT 6.2 K/mm3 (4.0-10.0)
[2018-01-11 10:51] LABS: ANION GAP 6 (8-16); CALCIUM 8.7 mg/dL (8.5-10.1); CHLORIDE 111 mmol/L (98-107); CO2 27 mmol/L (21-32); GLUCOSE,RANDOM 103 mg/dL (74-106); MAGNESIUM 1.9 mg/dL (1.8-2.4); POTASSIUM 3.9 mmol/L (3.5-5.1); SGOT/AST 19 U/L (15-37); SODIUM 144 mmol/L (136-145)
[2018-01-11 11:00] LABS: ALBUMIN 3.6 g/dl (3.4-5.0); ALK PHOS 98 U/L (45-117); BILIRUBIN,TOTAL 0.7 mg/dL (0.2-1.0); BLOOD UREA NITROGEN 9 mg/dL (7-18); CHOLESTEROL 136 mg/dL (50-200); CREATININE 0.6 mg/dL (0.55-1.02); HDL CHOLESTEROL 72 mg/dL (40-60); SGPT/ALT 24 U/L (12-78); TRIGLYCERIDES 55 mg/dL (35-160)
[2018-01-11] MEDS: busPIRone HCL 5 MG TABLET PO SCH ×2 (11:27→21:52)
[2018-01-11] MEDS: PARoxetine HCL 20 MG TABLET (FP) PO SCH (11:28)
[2018-01-11] MEDS: METOPROLOL TARTRATE 50 MG TABLET (FP) PO SCH (11:28)
[2018-01-11] MEDS: ASPIRIN COATED 81 MG TABLET.EC PO SCH (11:28)
[2018-01-11] MEDS: BUDESONIDE/FORMETEROL FUMARATE 80/4.5 mcg INHALER IH SCH ×2 (11:29→21:53)
[2018-01-11] MEDS ORDERED: traMADol HCL 50 MG TABLET PO PRN (13:58)
[2018-01-11] MEDS: SODIUM CHLORIDE 1,000 ML IV SCH ×2 (15:36→17:50)
[2018-01-11] MEDS: ALBUTEROL SO4 2.5/IPRATROPIUM 0.5 INH SOL 3 ML VIAL.NEB. NEB SCH ×2 (16:23→20:05)
--- NOTE | 2018-01-11 18:15 | PN ---
Physical Exam: SUBJECTIVE: Patient seen and examined at the bedside. Ambulating without dizziness, however noted to be holding on to furniture with ambulation. Patient lives alone. OBJECTIVE: Vital Signs Period Temp Pulse Resp BP Sys/Matos Pulse Ox Last 24 Hr 97.6 F-98.2 F 75-106 18-22 136-160/67-89 97-98 GENERAL: Awake, alert, and fully oriented, in no acute distress. HEAD: abrasion on bridge of nose, bump on forehead s/p fall EYES: Pupils equal, round and reactive to light, extraocular movements intact, sclera anicteric, conjunctiva clear. No lid lag. EARS, NOSE, THROAT: Ears normal, nares patent, oropharynx clear without exudates. Moist mucous membranes. NECK: Normal range of motion, supple without lymphadenopathy, JVD, or masses. LUNGS: Breath sounds equal, clear to auscultation bilaterally. No wheezes, and no crackles. No accessory muscle use. HEART: Regular rate and rhythm, ABDOMEN: Soft, nontender, not distended, normoactive bowel sounds, no guarding, no rebound, no masses. No hepatomegaly or splenomegaly. NEUROLOGICAL: Normal speech. Normal gait. PSYCHIATRIC: Cooperative. Good eye contact. Appropriate mood and affect. SKIN: Warm, dry, normal turgor, no rashes or lesions noted, normal capillary refill. Laboratory Results - last 24 hr 01/10/18 01/11/18 01/11/18 18:25 02:00 10:10 WBC 6.2 RBC 3.62 Hgb 11.4 Hct 33.8 MCV 93.3 MCH 31.3 MCHC 33.6 RDW 13.4 Plt Count 206 MPV 8.0 Absolute Neuts (auto) 3.5 Neutrophils % 56.9 D Lymphocytes % 28.0 D Monocytes % 10.9 H Eosinophils % 3.7 Basophils % 0.5 Nucleated RBC % 0 Sodium Potassium Chloride Carbon Dioxide Anion Gap BUN Creatinine Creat Clearance w eGFR Random Glucose Hemoglobin A1c % Calcium Magnesium Total Bilirubin AST ALT Alkaline Phosphatase Creatine Kinase Creatine Kinase Index CK-MB (CK-2) Troponin I < 0.02 < 0.02 Total Protein Albumin Triglycerides Cholesterol Total LDL Cholesterol HDL Cholesterol 01/11/18 01/11/18 10:10 10:10 WBC RBC Hgb Hct MCV MCH MCHC RDW Plt Count MPV Absolute Neuts (auto) Neutrophils % Lymphocytes % Monocytes % Eosinophils % Basophils % Nucleated RBC % Sodium 144 Potassium 3.9 Chloride 111 H Carbon Dioxide 27 Anion Gap 6 L BUN 9 Creatinine 0.6 Creat Clearance w eGFR > 60 Random Glucose 103 Hemoglobin A1c % 6.8 H Calcium 8.7 Magnesium 1.9 Total Bilirubin 0.7 AST 19 ALT 24 Alkaline Phosphatase 98 Creatine Kinase 302 H Creatine Kinase Index 1.5 CK-MB (CK-2) 4.66 H Troponin I Total Protein 7.0 Albumin 3.6 Triglycerides 55 Cholesterol 136 Total LDL Cholesterol 54 HDL Cholesterol 72 H Active Medications Generic Name Dose Route Start Last Admin Trade Name Freq PRN Reason Stop Dose Admin Acetaminophen 650 mg 01/10/18 19:55 01/10/18 22:53 Tylenol - PO 650 mg Q6H PRN Administration PAIN LEVEL 4 - 6 Albuterol/Ipratropium 1 amp 01/11/18 16:00 Duoneb - NEB RQID [facility] Aspirin 81 mg 01/11/18 10:00 01/11/18 11:28 Ecotrin - PO 81 mg DAILY [facility] Administration Budesonide/Formoterol Fumarate 2 puff 01/10/18 22:00 01/11/18 11:29 Symbicort 80/4.5mcg - IH 2 puff BID [facility] Administration Buspirone HCl 15 mg 01/10/18 22:45 01/11/18 11:27 Buspar - PO 15 mg BID [facility] Administration Sodium Chloride 1,000 mls @ 100 mls/hr 01/10/18 17:30 01/11/18 17:50 Normal Saline - IV Not Given ASDIR [facility] Metoprolol Tartrate 50 mg 01/11/18 10:00 01/11/18 11:28 Lopressor - PO 50 mg DAILY [facility] Administration Nortriptyline HCl 50 mg 01/10/18 22:30 01/10/18 22:45 Pamelor - PO 50 mg HS [facility] Administration Paroxetine HCl 20 mg 01/11/18 10:00 01/11/18 11:28 Paxil - PO 20 mg DAILY [facility] Administration Tiotropium [place] 1 puff 01/10/18 22:00 01/10/18 22:45 Spiriva - IH 1 puff HS [facility] Administration Tramadol HCl 50 mg 01/11/18 13:58 Ultram - PO Q6H PRN PAIN LEVEL 6-10 Zolpidem Tartrate 5 mg 01/11/18 13:59 Ambien - PO HS PRN INSOMNIA ASSESSMENT/PLAN: Patient s a 67 year old female with a significant past medical history of asthma /COPD, dizziness, hypertension, implanted loop recorder placed 09/2017 and falls. She presents to the ED with complaints of worsening dizziness as if the "room was spinning" this morning while ambulating in her home. Patient recalls that she fell and woke up in the bathroom and not sure how long she was down for but estimates that it was approximately for 1 hour. She sustained a bruise on her nasal bridge and upper forehead and reports hitting her head. Upon waking she called her daughter. She denies any headaches, chest pain or shortness of breath. In the ED she was sitting up in bed in no acute distress, still having dizziness. She denies any past seizure activity, was not incontinent after episode. Imaging: Facial bone CT: negative for fracture Head CT: negative Neuro Syncope/Fall/Vertigo: Concern for arrhythmias however, possible vasovagal episode vs. seizures? . Patient reports LOC loss. Not orthostatic. Monitor on tele. Trops negative. Carotid doppler and echo ordered. Cardiology consulted. Loop recorder interrogated. Will consult neuro as patient has history of multiple falls and to rule out seizures. Physical therapy. Renal SABRINA/mild rhabdo.: Patient on floor for apx 1 hour s/p fall. Creat improved with ivf. Trend CPK. Card: Hypertension: Continue home meds, hold deborah secondary to SABRINA. HLD: hold lipitor until rhabdo resolves Endocrine hmga1c @ 6.8, monitor BGMs. Pulm: Asthma/COPD: Not wheezing on exam, lungs diminished bilaterally,will continue home inhalers, duonebs scheduled. FEN ns @ 100 monitor electrolytes low salt diet prophy: Physical therapy SCDs Visit type - Emergency Visit Emergency Visit: Yes ED Registration Date: 01/10/18 Care time: The patient presented to the Emergency Department on the above date and was hospitalized for further evaluation of their emergent condition. - New Patient This patient is new to me today: No - Critical Care Critical Care patient: No - Discharge Referral Referred to [facility] No
[2018-01-11] MEDS: BACITRACIN 15 GM TUBE TOPICAL OINTMENT TP SCH (18:50)
[2018-01-11] MEDS: TIOTROPIUM BROMIDE 18 MCG CAPSULES IH SCH (21:52)
[2018-01-11] MEDS: NORTRIPTYLINE HCL 25 MG CAPSULE PO SCH (21:53)
[2018-01-11] MEDS: ZOLPIDEM TARTRATE 5 MG TABLET PO PRN (22:00)
[2018-01-12] MEDS: SODIUM CHLORIDE 1,000 ML IV SCH (02:46)
[2018-01-12] MEDS ORDERED: PT OWN MED DRAWER 7, Y5N ONE ×3 (05:54→22:35)
[2018-01-12 07:05] LABS: BASO % 0.5 % (0-2.0); EOS % 2.9 % (0-4.5); HEMATOCRIT 34.6 % (32.4-45.2); HEMOGLOBIN 11.8 GM/dL (10.7-15.3); MCH 31.9 pg (25.7-33.7); MCHC 34.1 g/dl (32.0-36.0); MEAN CELL VOLUME 93.6 fl (80-96); MEAN PLT VOLUME 7.8 fl (7.5-11.1); MONO % 10.9 % (3.8-10.2); NEUT % 52.7 % (42.8-82.8); PLATELET COUNT 202 K/MM3 (134-434); RBC 3.69 M/mm3 (3.60-5.2); RDW 13.6 % (11.6-15.6); WHITE BLOOD COUNT 6.2 K/mm3 (4.0-10.0)
[2018-01-12 07:08] LABS: CHLORIDE 109 mmol/L (98-107); POTASSIUM 3.9 mmol/L (3.5-5.1); SODIUM 144 mmol/L (136-145)
[2018-01-12 07:21] LABS: ALBUMIN 3.5 g/dl (3.4-5.0); ALK PHOS 100 U/L (45-117); ANION GAP 9 (8-16); BILIRUBIN,TOTAL 0.7 mg/dL (0.2-1.0); BLOOD UREA NITROGEN 7 mg/dL (7-18); CALCIUM 8.4 mg/dL (8.5-10.1); CO2 26 mmol/L (21-32); CREATININE 0.5 mg/dL (0.55-1.02); GLUCOSE,RANDOM 85 mg/dL (74-106); MAGNESIUM 1.9 mg/dL (1.8-2.4); SGOT/AST 23 U/L (15-37); SGPT/ALT 26 U/L (12-78); TOT PROT 7.2 g/dl (6.4-8.2)
[2018-01-12] MEDS: ALBUTEROL SO4 2.5/IPRATROPIUM 0.5 INH SOL 3 ML VIAL.NEB. NEB SCH ×4 (07:55→20:38)
--- NOTE | 2018-01-12 07:59 | PN ---
Progress Note, Physician Chief Complaint: alert, ambulating. No dizziness or light headedness TELE: NSR Med[employer] Loop Recorder interrogated yesterday: reviewed. No events detected despite multiple episodes of patient reported symptoms - Current Medication List Current Medications: Active Medications Acetaminophen (Tylenol -) 650 mg PO Q6H PRN PRN Reason: PAIN LEVEL 4 - 6 Last Admin: 01/10/18 22:53 Dose: 650 mg Albuterol/Ipratropium (Duoneb -) 1 amp NEB RQID [facility] Last Admin: 01/12/18 07:55 Dose: 1 amp Aspirin (Ecotrin -) 81 mg PO DAILY [facility] Last Admin: 01/11/18 11:28 Dose: 81 mg Bacitracin (Bacitracin -) 1 applic TP DAILY [facility] Last Admin: 01/11/18 18:50 Dose: 1 applic Budesonide/Formoterol Fumarate (Symbicort 80/4.5mcg -) 2 puff IH BID [facility] Last Admin: 01/11/18 21:53 Dose: 2 puff Buspirone HCl (Buspar -) 15 mg PO BID [facility] Last Admin: 01/11/18 21:52 Dose: 15 mg Sodium Chloride (Normal Saline -) 1,000 mls @ 100 mls/hr IV ASDIR [facility] Last Admin: 01/12/18 02:46 Dose: 100 mls/hr Metoprolol Tartrate (Lopressor -) 50 mg PO DAILY [facility] Last Admin: 01/11/18 11:28 Dose: 50 mg Nortriptyline HCl (Pamelor -) 50 mg PO HS [facility] Last Admin: 01/11/18 21:53 Dose: 50 mg Paroxetine HCl (Paxil -) 20 mg PO DAILY [facility] Last Admin: 01/11/18 11:28 Dose: 20 mg Tiotropium [place] (Spiriva -) 1 puff IH HS [facility] Last Admin: 01/11/18 21:52 Dose: 1 puff Tramadol HCl (Ultram -) 50 mg PO Q6H PRN PRN Reason: PAIN LEVEL 6-10 Zolpidem Tartrate (Ambien -) 5 mg PO HS PRN PRN Reason: INSOMNIA Last Admin: 01/11/18 22:00 Dose: 5 mg - Objective Vital Signs: Vital Signs Temperature 98.2 F 01/12/18 06:00 Pulse Rate 106 H 01/12/18 06:00 Respiratory Rate 20 01/12/18 06:00 Blood Pressure 151/101 01/12/18 06:00 O2 Sat by Pulse Oximetry (%) 99 01/11/18 20:00 This is one isolated elevated BP reading which seems out of the range for her: ? spurious? Will follow trend. Constitutional: Yes: No Distress Cardiovascular: Yes: Regular Rate and Rhythm Respiratory: Yes: CTA Bilaterally Gastrointestinal: Yes: Soft Edema: No Neurological: Yes: Alert, Oriented Labs: CBC, BMP 01/12/18 05:30 01/12/18 05:30 Selected Entries 01/11/18 01/12/18 19:56 01:15 Blood Pressure 131/81 144/77 Laboratory Tests 01/10/18 01/10/18 01/11/18 10:40 18:25 02:00 WBC Hgb Plt Count Sodium Potassium BUN Creatinine Troponin I < 0.02 < 0.02 < 0.02 01/12/18 01/12/18 05:30 05:30 WBC 6.2 Hgb 11.8 Plt Count 202 Sodium 144 Potassium 3.9 BUN 7 Creatinine 0.5 L Troponin I - ....Imaging EKG: Image Reviewed (NSR) Assessment/Plan IMP: Recurrent syncope, s/p loop recorder (Medtronic) Admitted with syncope REC: Tele and interrogation loop recorder unrevealing. Episodes may be secondary to orthostatic changes in BP. Will monitor BP trend. Neuro evaluation pending. Can d/c telemetry.
[2018-01-12] MEDS: busPIRone HCL 5 MG TABLET PO SCH ×2 (09:22→22:28)
[2018-01-12] MEDS: PARoxetine HCL 20 MG TABLET (FP) PO SCH (09:22)
[2018-01-12] MEDS: ASPIRIN COATED 81 MG TABLET.EC PO SCH (09:22)
[2018-01-12] MEDS: METOPROLOL TARTRATE 50 MG TABLET (FP) PO SCH (09:22)
[2018-01-12] MEDS: BACITRACIN 15 GM TUBE TOPICAL OINTMENT TP SCH (09:23)
[2018-01-12] MEDS: BUDESONIDE/FORMETEROL FUMARATE 80/4.5 mcg INHALER IH SCH ×2 (09:23→22:35)
--- NOTE | 2018-01-12 15:40 | PN ---
Physical Exam: SUBJECTIVE: Patient seen and examined. PT c/o dizziness this AM. She was blowing her nose. Following pt reports to RN episodes of watery diarrhea, no vomiting OBJECTIVE: Vital Signs Period Temp Pulse Resp BP Sys/Matos Pulse Ox Last 24 Hr 97.9 F-98.4 F 85-106 18-20 131-151/77-101 98-99 PE Neuro: alert, awake, cn 2-12intact - nystagmus Pulm: diminished, clear shallow breaths CV: s1 s2 rrr Abd: s nt nd + bs Ext: warm, no le edema Laboratory Results - last 24 hr 01/11/18 01/12/18 01/12/18 22:05 05:30 05:30 WBC 6.2 RBC 3.69 Hgb 11.8 Hct 34.6 MCV 93.6 MCH 31.9 MCHC 34.1 RDW 13.6 Plt Count 202 MPV 7.8 Absolute Neuts (auto) 3.2 Neutrophils % 52.7 Lymphocytes % 33.0 Monocytes % 10.9 H Eosinophils % 2.9 Basophils % 0.5 Nucleated RBC % 0 Sodium 144 Potassium 3.9 Chloride 109 H Carbon Dioxide 26 Anion Gap 9 BUN 7 Creatinine 0.5 L Creat Clearance w eGFR > 60 POC Glucometer 86 Random Glucose 85 Calcium 8.4 L Magnesium 1.9 Total Bilirubin 0.7 AST 23 ALT 26 Alkaline Phosphatase 100 Creatine Kinase 205 H Creatine Kinase Index 1.3 CK-MB (CK-2) 2.81 Total Protein 7.2 Albumin 3.5 Active Medications Generic Name Dose Route Start Last Admin Trade Name Freq PRN Reason Stop Dose Admin Acetaminophen 650 mg 01/10/18 19:55 01/10/18 22:53 Tylenol - PO 650 mg Q6H PRN Administration PAIN LEVEL 4 - 6 Albuterol/Ipratropium 1 amp 01/11/18 16:00 01/12/18 11:22 Duoneb - NEB 1 amp RQID [facility] Administration Aspirin 81 mg 01/11/18 10:00 01/12/18 09:22 Ecotrin - PO 81 mg DAILY [facility] Administration Bacitracin 1 applic 01/11/18 18:30 01/12/18 09:23 Bacitracin - TP 1 applic DAILY [facility] Administration Budesonide/Formoterol Fumarate 2 puff 01/10/18 22:00 01/12/18 09:23 Symbicort 80/4.5mcg - IH 2 puff BID [facility] Administration Buspirone HCl 15 mg 01/10/18 22:45 01/12/18 09:22 Buspar - PO 15 mg BID [facility] Administration Sodium Chloride 1,000 mls @ 100 mls/hr 01/10/18 17:30 01/12/18 02:46 Normal Saline - IV 100 mls/hr ASDIR [facility] Administration Metoprolol Tartrate 50 mg 01/11/18 10:00 01/12/18 09:22 Lopressor - PO 50 mg DAILY [facility] Administration Nortriptyline HCl 50 mg 01/10/18 22:30 01/11/18 21:53 Pamelor - PO 50 mg HS [facility] Administration Paroxetine HCl 20 mg 01/11/18 10:00 01/12/18 09:22 Paxil - PO 20 mg DAILY [facility] Administration Tiotropium [place] 1 puff 01/10/18 22:00 01/11/18 21:52 Spiriva - IH 1 puff HS [facility] Administration Tramadol HCl 50 mg 01/11/18 13:58 Ultram - PO Q6H PRN PAIN LEVEL 6-10 Zolpidem Tartrate 5 mg 01/11/18 13:59 01/11/18 22:00 Ambien - PO 5 mg HS PRN Administration INSOMNIA Assessment: 67 year old female with pmhx of asthma/COPD, dizziness, hypertension , implanted loop recorder placed 09/2017 and falls admitted with dizziness and subsequent fall approx 1hr. Plan: 1. Syncope/Fall/Vertigo, recurrent - Medtr[employer] loop recorder without events - ECHO nml LVSF, EF, mild mr, tr - Can dc tele - PT - Neuro eval pending, pt reports neurologist has taken 2. SABRINA - Resolved - Stop fluids 3. Hypertension - Change to toprol 50mg daily - Restart COLEMAN 4. DM II - Morning sugars controlled - Diabetic diet, lifestyle and diet changes - PMD to eval for po 5. Asthma/COPD - Not in exacerbation - Resume home inhalers 6. DVT ppx - Heparin sq Visit type - Emergency Visit Emergency Visit: Yes ED Registration Date: 01/10/18 Care time: The patient presented to the Emergency Department on the above date and was hospitalized for further evaluation of their emergent condition. - New Patient This patient is new to me today: Yes Date on this admission: 01/12/18 - Critical Care Critical Care patient: No
[2018-01-12] MEDS: CALCIUM CARBONATE 650 MG TABLET PO SCH (19:26)
--- NOTE | 2018-01-12 21:01 | CONSULT ---
Consult - text type - Consultation Consultation Note: NEUROLOGY CONSULTATION is greatly appreciated: Events reviewed and patient examined with her daughter, Erica, at the bedside. This 67 yo RH woman with h/o HTN, Chol, asthma, chronic headaches, chronic pain , and depression is maintained on: Paroxetine (20 mg); Aspirin 81; Nortriptyline (50 mg); Omeprazole; Oxycodone HCl /Acetaminophen: Atorvastatin; Benazepril; cyclobenzaprine; Cyclosporine; Albuterol; Fluticasone; Fluticasone/Salmeterol; Spiriva; and Metoprolol (50 mg qAM and 25 mg PO HS). Episodic headaches > 30 years, now 4 or 5/week. Occur without warning over the left sabianist and become throbbing holocranial headaches with photophobia and phonophobia. +FH of "severe migraines" in a daughter in [place]. Many years of numbness, tingling and pain in her legs at night interrupting sleep. The patient describes at least 5 episodes of LOC in the last 20 years. My history suggests they occur without warning and are associated with prolonged unresponsiveness and/or amnesia. In addition, the patient and her daughter describe many years of much more frequent staring spells when patient "looks confused" has roving eye movements and fluttering of her eyelids. During these spells, lasting , 1 min, the patient is unsteady, must hold on, cannot understand and may repeat "give me a second." Now admitted after awakening on the bathroom floor with facial trauma. Pt is amnestic for events. CT of head (reviewed): Normal. Carotid duplex: normal MECHELLE: Small abrasion on bridge of nose from her glasses. No bruits. Loop recorder in situ. No Battles signs or orbital ecchymoses. Obese (183 lbs) NEURO: Awake, alert, Ox3. MS, speech : normal CN II-XII: normal Motor: Fine sustention tremor. No drift. Normal strength, tone bult and reflexes except reduced AJ's. Toes downgoing. Coord: No FTN dystaxia Sensory: Normal. Romberg is Neg. Gait: Slight stiff-legged, slight shuffle. IMP: Non-focal neuro exam sig for fine sustention tremor (Essential tremor +/- drug effect). 1. Seizure disorder. Either a primarily generalized epilepsy or Complex Partial seizures +/- secondary generalization. 2. Migraine headaches (may support Primarily generalized epilepsy). 3. Restless Limbs syndrome (RLS). 4. Depression with Pseudodementia. SUGGEST: Begin topiramate vs seizures and migraine--25 mg q12 hrs x 1 week then 50 mg BID (Dose will be gradually increased on out patient basis) Continue metoprolol 50 q 12 hrs vs migraines (if asthma not worsened). Decrease nortriptyline to 25 mg PO q HS. Both Nortriptyline and paroxetine will increase RLS and should be changed to Bupropion as out patient. D/C cyclobenzaprine. Restasis will become unnecessary of tricyclics. Neuro f/u, EEG and EMG/NCS as out patient at which time Pramipexole can be initiated for pain and sleep. Thank you very much, Wesley De La Garza MD
[2018-01-12] MEDS ORDERED: PRAMIPEXOLE DIHYDROCHLORIDE 0.125 MG TABLET PO SCH (21:15)
[2018-01-12] MEDS ORDERED: NORTRIPTYLINE HCL 25 MG CAPSULE PO SCH (22:00)
[2018-01-12] MEDS: TOPIRAMATE 25 MG TABLET (FP) PO SCH (22:28)
[2018-01-12] MEDS: ACETAMINOPHEN 325 MG TABLET (FP) PO PRN (22:29)
[2018-01-12] MEDS: HEPARIN NA (PORCINE) 5,000 UNITS/ML 1ML VIAL SQ SCH (22:29)
[2018-01-12] MEDS: TIOTROPIUM BROMIDE 18 MCG CAPSULES IH SCH (22:44)
[2018-01-13] MEDS: ZOLPIDEM TARTRATE 5 MG TABLET PO PRN (00:14)
[2018-01-13] MEDS: ACETAMINOPHEN 325 MG TABLET (FP) PO PRN (05:51)
[2018-01-13] MEDS: HEPARIN NA (PORCINE) 5,000 UNITS/ML 1ML VIAL SQ SCH ×2 (05:52→14:03)
[2018-01-13 06:42] VITALS: TEMP 98.2
--- NOTE | 2018-01-13 08:03 | PN ---
Progress Note, Physician Chief Complaint: appreciate neuro consult TELE: NSR History of Present Illness: Carotid US WNL - Current Medication List Current Medications: Active Medications Acetaminophen (Tylenol -) 650 mg PO Q6H PRN PRN Reason: PAIN LEVEL 4 - 6 Last Admin: 01/13/18 05:51 Dose: 650 mg Albuterol/Ipratropium (Duoneb -) 1 amp NEB RQID [facility] Last Admin: 01/12/18 20:38 Dose: 1 amp Aspirin (Ecotrin -) 81 mg PO DAILY [facility] Last Admin: 01/12/18 09:22 Dose: 81 mg Bacitracin (Bacitracin -) 1 applic TP DAILY [facility] Last Admin: 01/12/18 09:23 Dose: 1 applic Budesonide/Formoterol Fumarate (Symbicort 80/4.5mcg -) 2 puff IH BID [facility] Last Admin: 01/12/18 22:35 Dose: 2 puff Buspirone HCl (Buspar -) 15 mg PO BID [facility] Last Admin: 01/12/18 22:28 Dose: 15 mg Calcium Carbonate (Calcium Carbonate -) 650 mg PO DAILY [facility] Last Admin: 01/12/18 19:26 Dose: 650 mg Heparin Sodium (Porcine) (Heparin -) 5,000 unit SQ TID [facility] Last Admin: 01/13/18 05:52 Dose: 5,000 unit Lisinopril (Prinivil) 40 mg PO DAILY [facility] Metoprolol Succinate (Toprol Xl -) 50 mg PO DAILY [facility] Nortriptyline HCl (Pamelor -) 25 mg PO [facility] Last Admin: 01/12/18 22:28 Dose: 25 mg Paroxetine HCl (Paxil -) 20 mg PO DAILY [facility] Last Admin: 01/12/18 09:22 Dose: 20 mg Pramipexole Dihydrochloride (Mirapex -) 0.125 mg PO DAILY@1999 [facility] Last Admin: 01/12/18 22:29 Dose: 0.125 mg Tiotropium [place] (Spiriva -) 1 puff IH [facility] Last Admin: 01/12/18 22:44 Dose: 1 puff Topiramate (Topamax -) 25 mg PO BID [facility] Stop: 01/16/18 22:00 Last Admin: 01/12/18 22:28 Dose: 25 mg Topiramate (Topamax -) 50 mg PO BID [facility] Zolpidem Tartrate (Ambien -) 5 mg PO HS PRN PRN Reason: INSOMNIA Last Admin: 01/13/18 00:14 Dose: 5 mg - Objective Vital Signs: Vital Signs Temperature 98.2 F 01/13/18 05:00 Pulse Rate 96 H 01/13/18 05:00 Respiratory Rate 18 01/13/18 05:00 Blood Pressure 157/84 01/13/18 05:00 O2 Sat by Pulse Oximetry (%) 99 01/12/18 21:00 Constitutional: Yes: Calm Cardiovascular: Yes: Regular Rate and Rhythm Respiratory: Yes: CTA Bilaterally Gastrointestinal: Yes: Soft Edema: No Neurological: Yes: Alert, Oriented ...Motor Strength: WNL Labs: CBC, BMP 01/12/18 05:30 01/12/18 05:30 - ....Imaging EKG: Image Reviewed Assessment/Plan IMP: Seizures Tele and interrogation loop recorder unrevealing. From Cardiac standpoint, can d/c telemetry
[2018-01-13] MEDS: ALBUTEROL SO4 2.5/IPRATROPIUM 0.5 INH SOL 3 ML VIAL.NEB. NEB SCH ×2 (08:12→11:08)
[2018-01-13] MEDS ORDERED: BENAZEPRIL HCL 40 MG PO SCH (10:00)
[2018-01-13] MEDS ORDERED: LISINOPRIL 20 MG TABLET (FP) PO SCH (10:00)
[2018-01-13] MEDS ORDERED: PT OWN MED DRAWER 7, Y5N ONE (10:19)
[2018-01-13] MEDS: CALCIUM CARBONATE 650 MG TABLET PO SCH (10:24)
[2018-01-13] MEDS: PARoxetine HCL 20 MG TABLET (FP) PO SCH (10:24)
[2018-01-13] MEDS: ASPIRIN COATED 81 MG TABLET.EC PO SCH (10:24)
[2018-01-13] MEDS: busPIRone HCL 5 MG TABLET PO SCH (10:24)
[2018-01-13] MEDS: BACITRACIN 15 GM TUBE TOPICAL OINTMENT TP SCH (10:25)
[2018-01-13] MEDS: BUDESONIDE/FORMETEROL FUMARATE 80/4.5 mcg INHALER IH SCH (10:26)
[2018-01-13] MEDS: TOPIRAMATE 25 MG TABLET (FP) PO SCH (10:26)
--- NOTE | 2018-01-13 12:46 | DS ---
Physical Exam: SUBJECTIVE: Patient seen and examined OBJECTIVE: Vital Signs Period Temp Pulse Resp BP Sys/Matos Pulse Ox Last 24 Hr 98.2 F-98.7 F 80-104 18-20 147-162/83-99 99 PHYSICAL EXAM GENERAL: The patient is awake, alert, and fully oriented, in no acute distress. HEAD: Normal with no signs of trauma. EYES: PERRL, extraocular movements intact, sclera anicteric, conjunctiva clear. ENT: Ears normal, nares patent, oropharynx clear without exudates, moist mucous membranes. NECK: Trachea midline, full range of motion, supple. LUNGS: Breath sounds equal, clear to auscultation bilaterally, no wheezes, no crackles, no accessory muscle use. HEART: Regular rate and rhythm, S1, S2 without murmur, rub or gallop. ABDOMEN: Soft, nontender, nondistended, normoactive bowel sounds, no guarding, no rebound, no hepatosplenomegaly, no masses. EXTREMITIES: 2+ pulses, warm, well-perfused, no edema. NEUROLOGICAL: Cranial nerves II through XII grossly intact. Normal speech, gait not observed. PSYCH: Normal mood, normal affect. SKIN: Warm, dry, normal turgor, no rashes or lesions noted. LABS Laboratory Results - last 24 hr 01/12/18 20:06 POC Glucometer 98 HOSPITAL COURSE: Date of Admission:01/10/18 Date of Discharge: 01/13/18 Discharge Summary Reason For Visit: SYNCOPE Current Active Problems CHI (closed head injury) (Acute) Syncope (Acute) Condition: Stable - Instructions Diet, Activity, Other Instructions: Please return to the ED for any new, persistent, or worsening symptoms. Follow up with your PCP in 1 week Take home medications as directed Changes: Nortriptyline 25mg at night, stop taking cyclobenzaprine, Topamax 25mg twice daily for 1 week and then topamax 50mg twice daily. You need to follow up with Neurology in 2 weeks for further work up and changes to medication Referrals: Narinder Dhillon [Primary Care Provider] - Wesley De La Garza MD [Staff Physician] - 2 Weeks (Follow up in neurology for EEG and EMG/NCS as out patient and changes to medication will be made ) Disposition: HOME - Home Medications Comprehensive Discharge Medication List: Ambulatory Orders Paroxetine HCl [Paxil -] 20 mg PO DAILY 03/06/12 Aspirin Coated [Ecotrin -] 81 mg PO DAILY 09/15/15 Omeprazole [Prilosec (RX)] 40 mg PO DAILY 09/15/15 Oxycodone HCl/Acetaminophen [Percocet 5-325 mg Tablet] 1 tab PO Q6H PRN Atorvastatin Ca [Lipitor] 40 mg PO HS 05/26/17 Benazepril HCl [Lotensin] 40 mg PO DAILY 05/26/17 Cyclosporine [Restasis] 1 each OU DAILY 05/26/17 Albuterol Sulfate Inhaler - [Ventolin HFA Inhaler -] 1 - 2 inh PO QID 05/27/17 Fluticasone Prop 0.05% Nasal [Flonase -] 1 spray NS DAILY 05/27/17 Fluticasone/Salmeterol [Advair 250-50 Diskus] 1 each IH DAILY 05/27/17 Tiotropium [place] [Spiriva] 1 inh IH HS 05/27/17 Metoprolol Succinate 50 mg PO DAILY #30 tab.er.24h 07/23/17 Buspirone HCl [Buspar -] 15 mg PO BID 01/10/18 Topiramate [Topamax] 25 mg PO BID #12 cap.sprink 01/13/18 Topiramate [Topamax] 50 mg PO BID #30 tablet 01/13/18 - Discharge Referral Referred to [facility] Med [facility].: No
[2018-01-13 15:14] VITALS: BP 163/92; PULSE 99
[2018-01-14 10:28] LABS: SERUM IRON SATURATION 9 % (15-55); TOTAL IRON BINDING CAPACITY 369 ug/dL (250-450); UIBC 337 ug/dL (118-369)
[2018-01-17] MEDS ORDERED: TOPIRAMATE 25 MG TABLET (FP) PO SCH (10:00)
== END 2018-01-13 15:21 | disposition home or self-care (01) ==
LOC: JER 10:56 → JERBED 17:38 → J4W 19:51
PROVIDERS: ADMIT Internal Medicine; ATTEND Nurse Practitioner Acute Care
PROC: 3E0337Z Introduction of Electrolytic and Water Balance Substance into Peripheral Vein, Percutaneous Approach (ICD-10-PCS; principal; 2018-01-10)
PROC: 3E0F7GC Introduction of Other Therapeutic Substance into Respiratory Tract, Via Natural or Artificial Opening (ICD-10-PCS; 2018-01-10)
DX: R55 Syncope and collapse (principal); S09.90XA Unspecified injury of head, initial encounter; S00.31XA Abrasion of nose, initial encounter; R42 Dizziness and giddiness; I10 Essential (primary) hypertension; J45.909 Unspecified asthma, uncomplicated; J44.9 Chronic obstructive pulmonary disease, unspecified; R29.6 Repeated falls; E78.5 Hyperlipidemia, unspecified; N17.9 Acute kidney failure, unspecified; E66.9 Obesity, unspecified; Z68.39 Body mass index [BMI] 39.0-39.9, adult; Z88.1 Allergy status to other antibiotic agents; W18.39XA Other fall on same level, initial encounter; Z91.81 History of falling; Y93.89 Activity, other specified; Y92.002 Bathroom of unspecified non-institutional (private) residence as the place of occurrence of the external cause; Z95.818 Presence of other cardiac implants and grafts
CPT/HCPCS: 36415; 70450-TC; 70486-TC; 71045-TC-FY; 80053; 80061; 81003; 81015; 82550; 82553; 82962; 83036; 83540; 83550; 83721; 83735; 84484; 85025; 87086; 93005; 93010; 93306-TC; 93880-TC; 94640; 97116-GP; 97161-GP; 99285-25; G0378; J1644; J7030; J7620

== ENCOUNTER 2018-02-25 19:34 | Observation (INO) | payer OTHER, MEDICARE ==
--- NOTE | 2018-02-25 21:37 | PDOC ---
History of Present Illness - General Chief Complaint: Lightheaded Stated Complaint: DIZZY Time Seen by Provider: 02/25/18 21:02 History Source: Patient - History of Present Illness Initial Comments: 02/25/18 21:31 Pt is a 67yo female with PMH of asthma/COPD, HTN, HLD, implanted loop recorder placed 09/2017 presenting to ED complaining of "dizziness and bad headache". Pt has been having chronic bouts of dizziness, her most recent episode other than today being last week. She is unable to describe her dizziness, but she states that she has changes in vision but cannot describe it. It does not feel like the room is spinning She states she fell while she was walking and called her grandson. She does not recall the event but knows that she fell. Today, she started feeling dizzy this morning with RUGGIERO starting from the back of her neck. She also claims to be feeling "sleepy" and this is new for her. Right no she does not feel dizzy and is not experiencing RUGGIERO. Pt started to get teary and stated that her daughter thinks she's a drug addict. PCP: Dr. Arechiga PMH: see hpi PSH: implnted loop recorder Meds: Percocet 10see med rec Allergies: nkda Social: denies tobacco, alcohol, illicit drug use. 02/25/18 21:38 Past History - Past Medical History Allergies/Adverse Reactions: Allergies Allergy/AdvReac Type Severity Reaction Status Date / Time vancomycin Allergy Severe Verified 02/25/18 19:42 Home Medications: Ambulatory Orders Paroxetine HCl [Paxil -] 20 mg PO DAILY 03/06/12 Aspirin Coated [Ecotrin -] 81 mg PO DAILY 09/15/15 Omeprazole [Prilosec (RX)] 40 mg PO DAILY 09/15/15 Oxycodone HCl/Acetaminophen [Percocet 5-325 mg Tablet] 1 tab PO Q6H PRN Atorvastatin Ca [Lipitor] 40 mg PO HS 05/26/17 Benazepril HCl [Lotensin] 40 mg PO DAILY 05/26/17 Cyclosporine [Restasis] 1 each OU DAILY 05/26/17 Albuterol Sulfate Inhaler - [Ventolin HFA Inhaler -] 1 - 2 inh PO QID 05/27/17 Fluticasone Prop 0.05% Nasal [Flonase -] 1 spray NS DAILY 05/27/17 Fluticasone/Salmeterol [Advair 250-50 Diskus] 1 each IH DAILY 05/27/17 Tiotropium [place] [Spiriva] 1 inh IH HS 05/27/17 Metoprolol Succinate 50 mg PO DAILY #30 tab.er.24h 07/23/17 Buspirone HCl [Buspar -] 15 mg PO BID 01/10/18 Topiramate [Topamax] 25 mg PO BID #12 cap.sprink 01/13/18 Topiramate [Topamax] 50 mg PO BID #30 tablet 01/13/18 Anemia: Yes (IRON DEFICIENCY) Asthma: Yes Cancer: No Cardiac Disorders: Yes (CHEST PAIN,LEFT VENTRICULAR HYPERTROPHY) CVA: No COPD: No CHF: No Dementia: No Diabetes: No GI Disorders: Yes (ACID REFLUX, ABD. PAIN. CHRONIC CONSTIPATION DRUG INDUCED) Disorders: No HTN: Yes Hypercholesterolemia: Yes Liver Disease: Yes (FATTY LIVER) Seizures: No Thyroid Disease: No - Surgical History Abdominal Surgery: Yes (LIPOMA ON ABDOMEN REMOVED) Appendectomy: Yes Cardiac Surgery: No Cholecystectomy: No Lung Surgery: No Neurologic Surgery: No Orthopedic Surgery: Yes (TOTAL KNEE REPLACEMENTS) - Suicide/Smoking/Psychosocial Hx Smoking Status: No Smoking History: Never smoked Have you smoked in the past 12 months: No Number of Cigarettes Smoked Daily: 0 Information on smoking cessation initiated: No Hx Alcohol Use: No Drug/Substance Use Hx: No Substance Use Type: None Hx Substance Use Treatment: No *Physical Exam - Vital Signs Last Vital Signs Temp Pulse Resp BP Pulse Ox 97.9 F 67 18 138/84 98 02/25/18 19:42 02/25/18 19:42 02/25/18 19:42 02/25/18 19:42 02/25/18 19:42 ED Treatment Course - RADIOLOGY Radiology Studies Ordered: Category Date Time Status HEAD CT WITHOUT CONTRAST [CT] Stat CT Scan 02/25/18 21:27 Ordered CHEST X-RAY PORTABLE* [RAD] Stat Radiology 02/25/18 21:27 Ordered *DC/Admit/Observation/Transfer - Referrals Referrals: Piper Arechiga MD [Primary Care Provider] - - Patient Instructions - Post Discharge Activity
[2018-02-25 22:01] LABS: BASO % 0.7 % (0-2.0); EOS % 3.7 % (0-4.5); HEMATOCRIT 34.7 % (32.4-45.2); HEMOGLOBIN 11.7 GM/dL (10.7-15.3); LYMPH % 52.3 % (8-40); MCH 31.5 pg (25.7-33.7); MCHC 33.7 g/dl (32.0-36.0); MEAN CELL VOLUME 93.7 fl (80-96); MEAN PLT VOLUME 8.1 fl (7.5-11.1); MONO % 9.3 % (3.8-10.2); PLATELET COUNT 237 K/MM3 (134-434); RBC 3.71 M/mm3 (3.60-5.2); RDW 13.3 % (11.6-15.6); WHITE BLOOD COUNT 8.7 K/mm3 (4.0-10.0)
[2018-02-25 22:23] LABS: ALBUMIN 4.1 g/dl (3.4-5.0); ANION GAP 10 (8-16); BILIRUBIN,TOTAL 0.4 mg/dL (0.2-1.0); BLOOD UREA NITROGEN 37 mg/dL (7-18); CALCIUM 9.1 mg/dL (8.5-10.1); CHLORIDE 110 mmol/L (98-107); CO2 23 mmol/L (21-32); CREATININE 1.1 mg/dL (0.55-1.02); GLUCOSE,RANDOM 100 mg/dL (74-106); POTASSIUM 4.1 mmol/L (3.5-5.1); SGOT/AST 16 U/L (15-37); SGPT/ALT 25 U/L (12-78); SODIUM 143 mmol/L (136-145); TOT PROT 7.8 g/dl (6.4-8.2)
[2018-02-25 22:24] LABS: ALK PHOS 98 U/L (45-117)
[2018-02-26] MEDS ORDERED: SODIUM CHLORIDE 1,000 ML IV SCH (01:30)
--- NOTE | 2018-02-26 03:19 | PN ---
Teaching Attending Note Name of Resident: Carl Rosenberg ATTENDING PHYSICIAN STATEMENT I saw and evaluated the patient. I reviewed the resident's note and discussed the case with the resident. I agree with the resident's findings and plan as documented. SUBJECTIVE: Patient is a 67 year old woman with PMH of bilateral knee replacement, asthma/ COPD, HTN, HLD, implanted loop recorder placed 09/2017 presenting to ED complaining of "dizziness and bad headache". She has been having chronic bouts of dizziness, her most recent episode other than today being last week. She is unable to describe her dizziness, but she states that she has changes in vision but cannot describe it. Today, she started feeling dizzy this morning with RUGGIERO starting from the back of her neck. She also claims to be feeling "sleepy" and this is new for her. Right now she does not feel dizzy and is not experiencing RUGGIERO. She has had extensive neuro/cardiac workup for these symptoms including the implanted loop recorder and recent initiation of "anticonvulsant" therapy. She is emotionally labile - having issues with her daughter and is worried about the risks of living alone and falls. OBJECTIVE: Alert. Obese Vital Signs Period Temp Pulse Resp BP Sys/Matos Pulse Ox Last 24 Hr 97.9 F-98.1 F 67-70 18-18 138-154/72-84 98-98 HEENT: No Jaundice, eye redness or discharge, PERRLA, EOMI. Normocephalic, atraumatic. External ears are normal and hearing is grossly intact. No nasal discharge. Neck: Supple, nontender. No palpable adenopathy or thyromegaly. No JVD Chest: Good effort. Clear to auscultation and percussion. Heart: Regular. No S3, rub or murmur Abdomen: Not distended, soft, nontender and no HSM. No rebound or guarding. Normoactive bowel sounds. Ext: Peripheral pulses intact. No leg edema. Skin: Warm and dry. No petechiae, rash or ecchymosis. Neuro: Alert. Oriented x3. CN 2-12 grossly intact. Sensation grossly intact in all four extremities and DTR are symmetric. Current Medications Generic Name Dose Route Start Last Admin Trade Name Freq PRN Reason Stop Dose Admin Heparin Sodium (Porcine) 5,000 unit 02/26/18 06:00 Heparin - SQ TID [place] Sodium Chloride 1,000 mls @ 50 mls/hr 02/26/18 01:30 02/26/18 02:26 Normal Saline - IV 02/27/18 01:24 50 mls/hr [facility] Administration Home Medications Medication Instructions Recorded Paroxetine HCl [Paxil -] 20 mg PO DAILY 03/06/12 Aspirin Coated [Ecotrin -] 81 mg PO DAILY 09/15/15 Omeprazole [Prilosec (RX)] 40 mg PO DAILY 09/15/15 Oxycodone HCl/Acetaminophen 1 tab PO Q6H PRN 12/07/15 [Percocet 5-325 mg Tablet] Atorvastatin Ca [Lipitor] 40 mg PO HS 05/26/17 Benazepril HCl [Lotensin] 40 mg PO DAILY 05/26/17 Cyclosporine [Restasis] 1 each OU DAILY 05/26/17 Albuterol Sulfate Inhaler - 1 - 2 inh PO QID 05/27/17 [Ventolin HFA Inhaler -] Fluticasone Prop 0.05% Nasal 1 spray NS DAILY 05/27/17 [Flonase -] Fluticasone/Salmeterol [Advair 1 each IH DAILY 05/27/17 250-50 Diskus] Tiotropium [place] [Spiriva] 1 inh IH HS 05/27/17 Metoprolol Succinate 50 mg PO DAILY #30 tab.er.24h 07/23/17 Buspirone HCl [Buspar -] 15 mg PO BID 01/10/18 Topiramate [Topamax] 25 mg PO BID #12 cap.sprink 01/13/18 Topiramate [Topamax] 50 mg PO BID #30 tablet 01/13/18 Abnormal Lab Results 02/25/18 02/25/18 21:50 21:50 Neutrophils % 34.0 L D Lymphocytes % 52.3 H D Chloride 110 H BUN 37 H Creatinine 1.1 H ASSESSMENT AND PLAN: 1. Dizziness - Patient is currently symptom free. Will hydrate her orally and IV to correct dehydration. Since she has been extensively worked up for these symptoms recently, we will await neurology evaluation before proceeding with any additional tests. Most important is that she may need to be placed in an "assisted living" facility or any other location where she will not be alone. Needs generous emotional support. Social work consult. 2. SABRINA - Etiology unclear - may be dehydrated. Getting IV and oral fluids. Avoid nephrotoxic agents such as NSAIDS, aminoglycosides, contrast dyes and certain Alternative medicine products. 3. Obesity - Will provide patient all the necessary assistance , counseling and positive reinforcement to facilitate weight loss. Consult venetian blind cleaner. 4. DVT prophylaxis - Heparin 5000u sq tid. 5. Advance directives - Full code
--- NOTE | 2018-02-26 03:19 | HP ---
CHIEF COMPLAINT: Dizziness, headache, PCP: HISTORY OF PRESENT ILLNESS: 67 yo female with PMH Asthma, HTN, HLD, Implanted loop recorder in September 2017, presents with complaint of dizziness and headache. She says the headache starts in her forehead and goes over the top of her head to the back of her head. She endorses a history of seizures which she states she gets dizzy and confused and sometimes loses consciousness. She admits to having one episode last week that led to loss of consciousness and she was found on the floor in her building. She says today she had an episode of dizziness which she denies LOC or fall, but states she came to ED because she lives alone and is worried about passing out and being hurt. She denies fevers, chills, chest pain, SOB, n/v/d. ER course was notable for: (1) BUN/Cr 37/1.1 elevated from baseline (2) ECG noted normal sinus, no heart block (3) Recent Travel: none PAST MEDICAL HISTORY: Asthma, HTN, HLD, PAST SURGICAL HISTORY: Implanted loop recorder in September 2017 b/l total knees lipoma removal from abdomen Social History: Smoking: none Alcohol: none Drugs: none Family History: Allergies vancomycin Allergy (Severe, Verified 02/25/18 19:42) red man syndrome HOME MEDICATIONS: Home Medications Medication Instructions Recorded Paroxetine HCl [Paxil -] 20 mg PO DAILY 03/06/12 Aspirin Coated [Ecotrin -] 81 mg PO DAILY 09/15/15 Omeprazole [Prilosec (RX)] 40 mg PO DAILY 09/15/15 Oxycodone HCl/Acetaminophen 1 tab PO Q6H PRN 12/07/15 [Percocet 5-325 mg Tablet] Atorvastatin Ca [Lipitor] 40 mg PO HS 05/26/17 Benazepril HCl [Lotensin] 40 mg PO DAILY 05/26/17 Cyclosporine [Restasis] 1 each OU DAILY 05/26/17 Albuterol Sulfate Inhaler - 1 - 2 inh PO QID 05/27/17 [Ventolin HFA Inhaler -] Fluticasone Prop 0.05% Nasal 1 spray NS DAILY 05/27/17 [Flonase -] Fluticasone/Salmeterol [Advair 1 each IH DAILY 05/27/17 250-50 Diskus] Tiotropium [place] [Spiriva] 1 inh IH HS 05/27/17 Metoprolol Succinate 50 mg PO DAILY #30 tab.er.24h 07/23/17 Buspirone HCl [Buspar -] 15 mg PO BID 01/10/18 Topiramate [Topamax] 25 mg PO BID #12 cap.sprink 01/13/18 Topiramate [Topamax] 50 mg PO BID #30 tablet 01/13/18 Medication list unconfirmed as pharmacy closed and pt does not know her medications or have a medication list which she left at home. Will need reconciliation in AM. REVIEW OF SYSTEMS CONSTITUTIONAL: Absent: fever, chills, diaphoresis, generalized weakness, malaise, loss of appetite, weight change HEENT: Absent: rhinorrhea, nasal congestion, throat pain, throat swelling, difficulty swallowing, mouth swelling, ear pain, eye pain, visual changes CARDIOVASCULAR: lightheadedness syncope, Absent: chest pain, palpitations, irregular heart rate, , peripheral edema RESPIRATORY: Absent: cough, shortness of breath, dyspnea with exertion, orthopnea, wheezing, stridor, hemoptysis GASTROINTESTINAL: Absent: abdominal pain, abdominal distension, nausea, vomiting, diarrhea, constipation, melena, hematochezia GENITOURINARY: Absent: dysuria, frequency, urgency, hesitancy, hematuria, flank pain, genital pain MUSCULOSKELETAL: back pain Absent: myalgia, arthralgia, joint swelling, , neck pain SKIN: Absent: rash, itching, pallor HEMATOLOGIC/IMMUNOLOGIC: Absent: easy bleeding, easy bruising, lymphadenopathy, frequent infections ENDOCRINE: Absent: unexplained weight gain, unexplained weight loss, heat intolerance, cold intolerance NEUROLOGIC: headache, dizziness Absent: , focal weakness or paresthesias, unsteady gait, seizure, mental status changes, bladder or bowel incontinence PSYCHIATRIC: Absent: anxiety, depression, suicidal or homicidal ideation, hallucinations. PHYSICAL EXAMINATION Vital Signs - 24 hr 02/25/18 02/26/18 19:42 02:30 Temperature 97.9 F 98.1 F Pulse Rate 67 Pulse Rate [ 70 Right Radial] Respiratory 18 18 Rate Blood Pressure 138/84 Blood Pressure 154/72 [Right Arm] O2 Sat by Pulse 98 98 Oximetry (%) GENERAL: Pt awake and oriented, no acute distress HEAD: Normocephalic, atraumatic. EYES: PERRL, EOMI, no scleral icterus EARS, NOSE, THROAT: oropharynx clear without exudates. Moist mucous membranes. NECK: supple without lymphadenopathy LUNGS: CTA b/l, no crackles or wheezes HEART: Regular rate and rhythm, normal S1 and S2 without murmur, rub or gallop. ABDOMEN: Soft, nontender to palpation, normoactive bowel sounds MUSCULOSKELETAL: No bony deformities or tenderness. No CVA tenderness. UPPER EXTREMITIES: 2+ pulses, warm, well-perfused. No cyanosis. No clubbing. No peripheral edema. LOWER EXTREMITIES: 2+ pulses, warm, well-perfused. No calf tenderness. No peripheral edema. NEUROLOGICAL: Cranial nerves II-XII grossly intact. Normal speech. PSYCHIATRIC: Cooperative. Good eye contact. Appropriate mood and affect. SKIN: Warm, dry, normal turgor, no rashes or lesions noted Laboratory Results - last 24 hr 02/25/18 02/25/18 02/25/18 21:50 21:50 21:50 WBC 8.7 RBC 3.71 Hgb 11.7 Hct 34.7 MCV 93.7 MCH 31.5 MCHC 33.7 RDW 13.3 Plt Count 237 MPV 8.1 Absolute Neuts (auto) 3.0 Neutrophils % 34.0 L D Lymphocytes % 52.3 H D Monocytes % 9.3 Eosinophils % 3.7 Basophils % 0.7 Nucleated RBC % 0 Sodium 143 Potassium 4.1 Chloride 110 H Carbon Dioxide 23 Anion Gap 10 BUN 37 H Creatinine 1.1 H Creat Clearance w eGFR 49.85 Random Glucose 100 Calcium 9.1 Total Bilirubin 0.4 AST 16 ALT 25 Alkaline Phosphatase 98 Troponin I < 0.02 Total Protein 7.8 Albumin 4.1 ASSESSMENT/PLAN: 67 yo female with PMH Asthma, HTN, HLD, recent loop recorder implanted, seizures , admitted for headache and dizziness. Recent workup for similar complaints Dizziness and episodes of LOC -Episodes likely due to seizure activity vs dehydration -Seen by neurology here recently, will reconsult for follow up and recommendations -BUN/Cr ratio noted elevated with elevated CK on previous admissions -UA ordered stat -CK ordered stat -Gentle hydration with NS @ 50 cc.hr -encourage pt for oral rehydration -ECG noted normal sinus, no heart block noted -Pt will need assistance from outreach and education social worker as pt lives alone and could benefit from assisted living HTN -Metoprolol Succinate 50 mg PO Daily HLD -Lipitor 40 mg PO HS Asthma -Spiriva -Advair -Ventolin HFA DVT Prophylaxis -Heparin 5000 units SQ TID FEN -NS @ 50 cc/hr -No abnormalities, BMP in AM -Sodium controlled diet Disposition Tele Observation Visit type - Emergency Visit Emergency Visit: Yes ED Registration Date: 02/26/18 Care time: The patient presented to the Emergency Department on the above date and was hospitalized for further evaluation of their emergent condition. - New Patient This patient is new to me today: Yes Date on this admission: 02/26/18 - Critical Care Critical Care patient: No Hospitalist Screening - Colonoscopy Questionnaire Colonoscopy Questionnaire: Colonoscopy Questionnaire - Patient: 50 - 75 years old and never had a screening colonoscopy: Unknown History of colon or rectal polyps, or CA: No History of IBD, Crohn's disease or UC: No History of abdominal radiation therapy as a child: No - Relative: 1 with colon or rectal CA, or polyps at age 60 or younger: No Colon or rectal CA diagnosed at age 45 or younger: No Multiple relatives with colon or rectal CA: No - Outcome: Screening Result: Negative Screen
--- NOTE | 2018-02-26 03:44 | PDOC ---
Attending Attestation - Resident Resident Name: Marlen Cox - ED Attending Attestation I have performed the following: I have examined & evaluated the patient, The case was reviewed & discussed with the resident, I agree w/resident's findings & plan, Exceptions are as noted - HPI HPI: 02/26/18 03:41 The patient is a 67 year old female with a past medical history of HTN, HLD, implanted loop recorder placed 09/2017, and asthma/COPD who presents to the ED for evaluation of lightheadness and gradual onset headache since last week. She reports falling last week endorsing striking her head, but is unable to recall details clearly. Per EMS, pt was found in lobby of building minimally responsive, however pt has no recollection of this. Pt is poor historian. Denies CP, SOB, F/C, N/V/D, abd pain, focal weakness, numbness at this time. PCP: Dr. Arechiga - Physicial Exam PE: 02/26/18 03:44 agree with resident exam - Medical Decision Making 02/26/18 03:44 Given lightheadedness and report of pt having decreased responsiveness per EMS, pt has been admitted for observation and further workup.
[2018-02-26] MEDS ORDERED: HEPARIN NA (PORCINE) 5,000 UNITS/ML 1ML VIAL ONE (06:09)
[2018-02-26] MEDS: HEPARIN NA (PORCINE) 5,000 UNITS/ML 1ML VIAL SQ SCH ×3 (06:24→22:20)
[2018-02-26 07:20] LABS: HEMATOCRIT 33.7 % (32.4-45.2); HEMOGLOBIN 11.7 GM/dL (10.7-15.3); MCH 32.3 pg (25.7-33.7); MCHC 34.8 g/dl (32.0-36.0); MEAN CELL VOLUME 92.8 fl (80-96); MEAN PLT VOLUME 8.6 fl (7.5-11.1); PLATELET COUNT 198 K/MM3 (134-434); RBC 3.63 M/mm3 (3.60-5.2); RDW 13.3 % (11.6-15.6); WHITE BLOOD COUNT 6.9 K/mm3 (4.0-10.0)
[2018-02-26 07:53] LABS: BLOOD UREA NITROGEN 30 mg/dL (7-18); CHLORIDE 110 mmol/L (98-107); PHOSPHOROUS 3.4 mg/dL (2.5-4.9); POTASSIUM 3.8 mmol/L (3.5-5.1); SODIUM 145 mmol/L (136-145)
[2018-02-26 07:59] LABS: ANION GAP 9 (8-16); CALCIUM 8.4 mg/dL (8.5-10.1); CO2 26 mmol/L (21-32); CREATININE 0.8 mg/dL (0.55-1.02); GLUCOSE,RANDOM 86 mg/dL (74-106); MAGNESIUM 2.1 mg/dL (1.8-2.4)
[2018-02-26] MEDS ORDERED: oxyCODONE HCL 5 MG TABLET PO PRN (09:50)
[2018-02-26] MEDS ORDERED: ACETAMINOPHEN 325 MG TABLET (FP) PO PRN (09:50)
--- NOTE | 2018-02-26 09:58 | EKG ---
Test Reason : Blood Pressure : / mmHG Vent. Rate : 060 BPM Atrial Rate : 060 BPM P-R Int : 146 ms QRS Dur : 094 ms QT Int : 414 ms P-R-T Axes : 035 013 015 degrees QTc Int : 414 ms NORMAL SINUS RHYTHM NORMAL ECG WHEN COMPARED WITH ECG OF 10-JAN-2018 11:23, NO SIGNIFICANT CHANGE WAS FOUND Confirmed by JOSHUA MENJIVAR MD ([id number]) on 02/26/2018 9:58:03 AM Referred By: Confirmed By:JOSHUA MENJIVAR MD
[2018-02-26] MEDS ORDERED: ALBUTEROL SO4 8 GM HFA INHALER IH SCH (10:00)
[2018-02-26] MEDS ORDERED: PT OWN MED DRAWER 7, Y5N ONE ×2 (10:24→14:45)
[2018-02-26] MEDS: ASPIRIN COATED 81 MG TABLET.EC PO SCH (10:40)
[2018-02-26] MEDS: BUDESONIDE/FORMETEROL FUMARATE 80/4.5 mcg INHALER IH SCH ×2 (12:43→22:22)
[2018-02-26] MEDS: FLUTICASONE PROP 0.05% 16 GM NASAL SPRAY NS SCH (12:45)
[2018-02-26] MEDS ORDERED: [UNRECOGNIZED DRUG - OTHER] PO SCH (13:45)
[2018-02-26] MEDS ORDERED: PATIENT'S OWN MEDICATION (NON-FORMULARY) (Topiramate [Topamax] 50 MG) PO SCH (13:45)
--- NOTE | 2018-02-26 14:23 | PN ---
<Piper Alcocer - Last Filed: 02/26/18 16:49> Physical Exam: SUBJECTIVE: Patient is a 67 y/o female with a history of asthma, htn, hld, loop recorder, seizures, who is here for headache and dizziness. Patient has no acute complaints and no complaints overnight. OBJECTIVE: Vital Signs Temperature 97.1 F L 02/26/18 07:09 Pulse Rate 64 02/26/18 10:38 Respiratory Rate 19 02/26/18 10:38 Blood Pressure 145/81 02/26/18 10:38 O2 Sat by Pulse Oximetry (%) 97 02/26/18 03:00 GENERAL: The patient is awake, alert, and fully oriented, in no acute distress. HEAD: Normal with no signs of trauma. LUNGS: Breath sounds equal, clear to auscultation bilaterally, HEART: Regular rate and rhythm, ABDOMEN: Soft, nontender, nondistended, normoactive bowel sounds, EXTREMITIES: 2+ pulses, warm, well-perfused, no edema. PSYCH: Normal mood, normal affect. SKIN: Warm, dry, normal turgor, no rashes or lesions noted CBC, BMP 02/26/18 05:55 02/26/18 05:55 Active Medications Aspirin (Ecotrin -) 81 mg PO DAILY [facility] Last Admin: 02/26/18 10:40 Dose: 81 mg Atorvastatin Calcium (Lipitor -) 40 mg PO HS [facility] Budesonide/Formoterol Fumarate (Symbicort 80/4.5mcg -) 2 puff IH BID [facility] Last Admin: 02/26/18 12:43 Dose: 2 puff Fluticasone Propionate (Flonase -) 1 spray NS DAILY [facility] Last Admin: 02/26/18 12:45 Dose: 1 spray Gabapentin (Neurontin -) 300 mg PO BID [facility] Heparin Sodium (Porcine) (Heparin -) 5,000 unit SQ TID [facility] Last Admin: 02/26/18 06:24 Dose: 5,000 unit Hydrochlorothiazide (Hctz -) 25 mg PO DAILY [facility] Sodium Chloride (Normal Saline -) 1,000 mls @ 50 mls/hr IV ASDIR [facility] Stop: 02/27/18 01:24 Last Admin: 02/26/18 02:26 Dose: 50 mls/hr Metoprolol Succinate (Toprol Xl -) 50 mg PO DAILY [facility] Last Admin: 02/26/18 10:40 Dose: 50 mg Montelukast Sodium (Singulair -) 10 mg PO HS [facility] Non-Formulary Medication (Omeprazole Pediatric Solution) 40 mg PO DAILY [facility] Non-Formulary Medication (Topiramate [Topamax]) 50 mg PO BID [facility] Paroxetine HCl (Paxil -) 20 mg PO DAILY [facility] ASSESSMENT/PLAN: Patient is a 67 y/o female with a history of asthma, htn, hld, loop recorder, seizures, who is here for headache and dizziness. #dizziness - long history of seizures and dizziness - f/u Dr. Zimmer who knows patients history - Topirmate 50 mg BID - patient on NS @ 50 #HTN - aspirin 81 mg daily - metoprolol succinate 50 daily #HLD - atorvastatin 40 mg - HCTZ 25 daily #Asthma - Flonase - singulair #chronic back pain - gabapentin 300 BID - Percocet held for now #depression - Paxil 20 mg daily #DVT ppx - heparin TID Visit type - Emergency Visit Emergency Visit: No - New Patient This patient is new to me today: No - Critical Care Critical Care patient: No <Beka Monroe - Last Filed: 02/26/18 17:35> Physical Exam: Patient uses pain medication Oxycodone given by pain management, most likely the cause of dizziness. Vital Signs Temperature 98.0 F 02/26/18 14:02 Pulse Rate 62 02/26/18 14:02 Respiratory Rate 20 02/26/18 15:35 Blood Pressure 134/77 02/26/18 14:02 O2 Sat by Pulse Oximetry (%) 97 02/26/18 15:35 CBCD WBC 6.9 K/mm3 (4.0-10.0) 02/26/18 05:55 RBC 3.63 M/mm3 (3.60-5.2) 02/26/18 05:55 Hgb 11.7 GM/dL (10.7-15.3) 02/26/18 05:55 Hct 33.7 % (32.4-45.2) 02/26/18 05:55 MCV 92.8 fl (80-96) 02/26/18 05:55 MCHC 34.8 g/dl (32.0-36.0) 02/26/18 05:55 RDW 13.3 % (11.6-15.6) 02/26/18 05:55 Plt Count 198 K/MM3 (134-434) 02/26/18 05:55 MPV 8.6 fl (7.5-11.1) 02/26/18 05:55 CMP Sodium 145 mmol/L (136-145) 02/26/18 05:55 Potassium 3.8 mmol/L (3.5-5.1) 02/26/18 05:55 Chloride 110 mmol/L (98-107) H 02/26/18 05:55 Carbon Dioxide 26 mmol/L (21-32) 02/26/18 05:55 Anion Gap 9 (8-16) 02/26/18 05:55 BUN 30 mg/dL (7-18) H 02/26/18 05:55 Creatinine 0.8 mg/dL (0.55-1.02) 02/26/18 05:55 Creat Clearance w eGFR > 60 (>60) 02/26/18 05:55 Random Glucose 86 mg/dL (74-106) 02/26/18 05:55 Calcium 8.4 mg/dL (8.5-10.1) L 02/26/18 05:55 Total Bilirubin 0.4 mg/dL (0.2-1.0) 02/25/18 21:50 AST 16 U/L (15-37) 02/25/18 21:50 ALT 25 U/L (12-78) 02/25/18 21:50 Alkaline Phosphatase 98 U/L (45-117) 02/25/18 21:50 Total Protein 7.8 g/dl (6.4-8.2) 02/25/18 21:50 Albumin 4.1 g/dl (3.4-5.0) 02/25/18 21:50 CARDIAC ENZYMES Troponin I < 0.02 ng/ml (0.00-0.05) 02/25/18 21:50 Current Medications Generic Name Dose Route Start Last Admin Trade Name Freq PRN Reason Stop Dose Admin Aspirin 81 mg 02/26/18 10:00 02/26/18 10:40 Ecotrin - PO 81 mg DAILY [facility] Administration Atorvastatin Calcium 40 mg 02/26/18 22:00 Lipitor - PO HS [facility] Budesonide/Formoterol Fumarate 2 puff 02/26/18 10:00 02/26/18 12:43 Symbicort 80/4.5mcg - IH 2 puff BID [facility] Administration Fluticasone Propionate 1 spray 02/26/18 10:00 02/26/18 12:45 Flonase - NS 1 spray DAILY [facility] Administration Gabapentin 300 mg 02/26/18 22:00 Neurontin - PO BID [facility] Heparin Sodium (Porcine) 5,000 unit 02/26/18 06:00 02/26/18 15:04 Heparin - SQ 5,000 unit TID [facility] Administration Hydrochlorothiazide 25 mg 02/26/18 13:45 02/26/18 14:45 Hctz - PO 25 mg DAILY [facility] Administration Sodium Chloride 1,000 mls @ 50 mls/hr 02/26/18 01:30 02/26/18 02:26 Normal Saline - IV 02/27/18 01:24 50 mls/hr ASDIR [facility] Administration Metoprolol Succinate 50 mg 02/26/18 10:00 02/26/18 10:40 Toprol Xl - PO 50 mg DAILY [facility] Administration Montelukast Sodium 10 mg 02/26/18 22:00 Singulair - PO HS [facility] Pantoprazole Sodium 40 mg 02/27/18 10:00 Protonix Packets For Oral Suspension - PO DAILY [facility] Paroxetine HCl 20 mg 02/27/18 10:00 Paxil - PO DAILY [facility] Topiramate 50 mg 02/26/18 15:30 02/26/18 16:04 Topamax - PO 50 mg BID [facility] Administration Home Medications Medication Instructions Recorded Paroxetine HCl [Paxil -] 20 mg PO DAILY 03/06/12 Omeprazole [Prilosec (RX)] 40 mg PO DAILY 09/15/15 Oxycodone HCl/Acetaminophen 1 tab PO Q6H PRN 12/07/15 [Percocet 5-325 mg Tablet] Albuterol Sulfate Inhaler - 1 - 2 inh PO QID 05/27/17 [Ventolin HFA Inhaler -] Fluticasone/Salmeterol [Advair 1 each IH DAILY 05/27/17 250-50 Diskus] Metoprolol Succinate 50 mg PO DAILY #30 tab.er.24h 07/23/17 Topiramate [Topamax] 50 mg PO BID #30 tablet 01/13/18 Alendronate Sodium/Vitamin D3 1 each PO WEEKLY 02/26/18 [Fosamax Plus D 70 mg-5,600 Iu vIT d] Alprazolam [Alprazolam ER] 0.5 mg PO BID PRN 02/26/18 Atorvastatin Ca [Lipitor] 40 mg PO HS 02/26/18 Cyclobenzaprine HCl 10 mg PO BID 02/26/18 Gabapentin 300 mg PO BID 02/26/18 Hydrochlorothiazide [Hctz -] 25 mg PO DAILY 02/26/18 Montelukast Na [Singulair -] 10 mg PO HS 02/26/18
[2018-02-26] MEDS: HYDROCHLOROTHIAZIDE 25 MG TABLET (FP) PO SCH (14:45)
[2018-02-26 15:26] VITALS: BMI 26.9
[2018-02-26] MEDS: TOPIRAMATE 25 MG TABLET (FP) PO SCH ×2 (16:04→22:21)
--- NOTE | 2018-02-26 21:28 | CONSULT ---
Consult - text type - Consultation Consultation Note: NEUROLOGY CONSULTATION is greatly appreciated: Please review my recent [facility] consultation for this patient performed on 01/12/18. This 67 yo RH woman with h/oHTN, Chol, OA, s/p TKR, asthma chronic headaches, chronic pain and depression is maintained on: Paroxetine 20 mg; Aspirin 81 mg; Omeprazole; Oxycodone HCl/Acetaminophen; Atorvastatin; Benazepril; Cyclosporine gtts; Albuterol; Fluticasone; Advair 250- 50; Spiriva; Metoprolol 50 mg; Buspirone 15 mg PO BID; Topiramate 25 mg PO BID; and Topiramate 50 mg PO BID. Episodic Headaches > 30 years c/w migaines and chronic nocturnal leg pains and insomnia suggesting RLS. In fact, headaches resolved on Topiramate 50 BID but, patient claims, this was discontinued by another neurologist and headaches recurred. When the patient attempted to resume topiramate on her own (75 BID) she became dizzy, unsteady and fell. No seizures noted. CT of head (reviewed): Normal MECHELLE: No evidence of external head trauma. No bruits. Cor reg. NEURO: MS/speech: Normal CN II-XII: Normal without nystagmus. Motor: Fine sustention tremor (old). No drift. Normal strength and reflexes except absent AJ's. Coord: Labored but no dysaxia Sensory: Romberg neg Gait: Sl shuffle. IMP: Essentially normal neurological exam Migraine headaches. RLS Possible seizure disorder Toxic-metabolic encephalopathy (TME) due to the rapid reloading of topiramate. SUGGEST: Continue topiramate 50 mg BID Neuro f/u as out patient. Thank you very much, Wesley De La Garza MD
[2018-02-26] MEDS ORDERED: MONTELUKAST NA 10 MG TABLET PO SCH (22:00)
[2018-02-26] MEDS ORDERED: ATORVASTATIN CA 40 MG TABLET (FP) PO SCH ×2 (22:00)
[2018-02-26] MEDS ORDERED: TOPIRAMATE 25 MG TABLET (FP) PO SCH (22:00)
[2018-02-26] MEDS ORDERED: TIOTROPIUM BROMIDE IH SCH (22:00)
[2018-02-26] MEDS: GABAPENTIN 300 MG CAPSULE (FP) PO SCH (22:20)
[2018-02-27] MEDS: HEPARIN NA (PORCINE) 5,000 UNITS/ML 1ML VIAL SQ SCH ×2 (06:51→15:04)
[2018-02-27] MEDS ORDERED: MECLIZINE HCL 12.5 MG TABLET PO PRN (09:35)
--- NOTE | 2018-02-27 09:35 | CONSULT ---
Consult - text type - Consultation Consultation Note: Neurology CHIEF COMPLAINT: Dizziness, headache, HISTORY OF PRESENT ILLNESS: 67 yo female with PMH Asthma, HTN, HLD, Implanted loop recorder in September 2017, presents with complaint of dizziness and headache. She stated the headache starts in her forehead and goes over the top of her head to the back of her head. She endorsed a history of seizures which she states she gets dizzy and confused and sometimes loses consciousness. She admited to having one episode last week that led to loss of consciousness and she was found on the floor in her building. CT head completed and without acute changes. Neurologically stable during my evaluation. Recent Travel: none PAST MEDICAL HISTORY: Asthma, HTN, HLD, PAST SURGICAL HISTORY: Implanted loop recorder in September 2017 b/l total knees lipoma removal from abdomen Social History: Smoking: none Alcohol: none Drugs: none Family History: Allergies vancomycin Allergy (Severe, Verified 02/25/18 19:42) red man syndrome Home Medication List Medication Instructions Recorded Confirmed Type Paroxetine HCl [Paxil -] 20 mg PO DAILY 03/06/12 02/26/18 History Omeprazole [Prilosec (RX)] 40 mg PO DAILY 09/15/15 02/26/18 History Oxycodone HCl/Acetaminophen 1 tab PO Q6H PRN 12/07/15 02/26/18 History [Percocet 5-325 mg Tablet] Albuterol Sulfate Inhaler - 1 - 2 inh PO QID 05/27/17 02/26/18 History [Ventolin HFA Inhaler -] Fluticasone/Salmeterol [Advair 1 each IH DAILY 05/27/17 02/26/18 History 250-50 Diskus] Alendronate Sodium/Vitamin D3 1 each PO WEEKLY 02/26/18 02/26/18 History [Fosamax Plus D 70 mg-5,600 Iu vIT d] Alprazolam [Alprazolam ER] 0.5 mg PO BID PRN 02/26/18 02/26/18 History Atorvastatin Ca [Lipitor] 40 mg PO HS 02/26/18 02/26/18 History Cyclobenzaprine HCl 10 mg PO BID 02/26/18 02/26/18 History Gabapentin 300 mg PO BID 02/26/18 02/26/18 History Hydrochlorothiazide [Hctz -] 25 mg PO DAILY 02/26/18 02/26/18 History Montelukast Na [Singulair -] 10 mg PO HS 02/26/18 02/26/18 History Active Medications Aspirin (Ecotrin -) 81 mg PO DAILY [facility] Last Admin: 02/26/18 10:40 Dose: 81 mg Atorvastatin Calcium (Lipitor -) 40 mg PO HS [facility] Last Admin: 02/26/18 22:21 Dose: 40 mg Budesonide/Formoterol Fumarate (Symbicort 80/4.5mcg -) 2 puff IH BID [facility] Last Admin: 02/26/18 22:22 Dose: 2 puff Fluticasone Propionate (Flonase -) 1 spray NS DAILY [facility] Last Admin: 02/26/18 12:45 Dose: 1 spray Gabapentin (Neurontin -) 300 mg PO BID [facility] Last Admin: 02/26/18 22:20 Dose: 300 mg Heparin Sodium (Porcine) (Heparin -) 5,000 unit SQ TID [facility] Last Admin: 02/27/18 06:51 Dose: 5,000 unit Hydrochlorothiazide (Hctz -) 25 mg PO DAILY [facility] Last Admin: 02/26/18 14:45 Dose: 25 mg Metoprolol Succinate (Toprol Xl -) 50 mg PO DAILY [facility] Last Admin: 02/26/18 10:40 Dose: 50 mg Montelukast Sodium (Singulair -) 10 mg PO [facility] Last Admin: 02/26/18 22:21 Dose: 10 mg Pantoprazole Sodium (Protonix Packets For Oral Suspension -) 40 mg PO DAILY [facility] Paroxetine HCl (Paxil -) 20 mg PO DAILY [facility] Topiramate (Topamax -) 50 mg PO BID [facility] Last Admin: 02/26/18 22:21 Dose: 50 mg REVIEW OF SYSTEMS CONSTITUTIONAL: Absent: fever, chills, diaphoresis, generalized weakness, malaise, loss of appetite, weight change HEENT: Absent: rhinorrhea, nasal congestion, throat pain, throat swelling, difficulty swallowing, mouth swelling, ear pain, eye pain, visual changes CARDIOVASCULAR: lightheadedness syncope, Absent: chest pain, palpitations, irregular heart rate, , peripheral edema RESPIRATORY: Absent: cough, shortness of breath, dyspnea with exertion, orthopnea, wheezing, stridor, hemoptysis GASTROINTESTINAL: Absent: abdominal pain, abdominal distension, nausea, vomiting, diarrhea, constipation, melena, hematochezia GENITOURINARY: Absent: dysuria, frequency, urgency, hesitancy, hematuria, flank pain, genital pain MUSCULOSKELETAL: back pain Absent: myalgia, arthralgia, joint swelling, , neck pain SKIN: Absent: rash, itching, pallor HEMATOLOGIC/IMMUNOLOGIC: Absent: easy bleeding, easy bruising, lymphadenopathy, frequent infections ENDOCRINE: Absent: unexplained weight gain, unexplained weight loss, heat intolerance, cold intolerance NEUROLOGIC: headache, dizziness Absent: , focal weakness or paresthesias, unsteady gait, seizure, mental status changes, bladder or bowel incontinence PSYCHIATRIC: Absent: anxiety, depression, suicidal or homicidal ideation, hallucinations. PHYSICAL EXAMINATION Vital Signs Period Temp Pulse Resp BP Sys/Matos Pulse Ox Last 24 Hr 97.7 F-98.4 F 61-69 19-20 106-150/69-84 97-97 GENERAL: Pt awake and oriented, no acute distress HEAD: Normocephalic, atraumatic. EYES: PERRL, EOMI, no scleral icterus EARS, NOSE, THROAT: oropharynx clear without exudates. Moist mucous membranes. NECK: supple without lymphadenopathy LUNGS: CTA b/l, no crackles or wheezes HEART: Regular rate and rhythm, normal S1 and S2 without murmur, rub or gallop. ABDOMEN: Soft, nontender to palpation, normoactive bowel sounds MUSCULOSKELETAL: No bony deformities or tenderness. No CVA tenderness. UPPER EXTREMITIES: 2+ pulses, warm, well-perfused. No cyanosis. No clubbing. No peripheral edema. LOWER EXTREMITIES: 2+ pulses, warm, well-perfused. No calf tenderness. No peripheral edema. NEUROLOGICAL: Cranial nerves II-XII grossly intact. Normal speech, moves all extremities grossly, sensory intact PSYCHIATRIC: Cooperative. Good eye contact. Appropriate mood and affect. SKIN: Warm, dry, normal turgor, no rashes or lesions noted Laboratory Results - last 24 hr 02/25/18 02/25/18 02/25/18 21:50 21:50 21:50 WBC 8.7 RBC 3.71 Hgb 11.7 Hct 34.7 MCV 93.7 MCH 31.5 MCHC 33.7 RDW 13.3 Plt Count 237 MPV 8.1 Absolute Neuts (auto) 3.0 Neutrophils % 34.0 L D Lymphocytes % 52.3 H D Monocytes % 9.3 Eosinophils % 3.7 Basophils % 0.7 Nucleated RBC % 0 Sodium 143 Potassium 4.1 Chloride 110 H Carbon Dioxide 23 Anion Gap 10 BUN 37 H Creatinine 1.1 H Creat Clearance w eGFR 49.85 Random Glucose 100 Calcium 9.1 Total Bilirubin 0.4 AST 16 ALT 25 Alkaline Phosphatase 98 Troponin I < 0.02 Total Protein 7.8 Albumin 4.1 ASSESSMENT/PLAN: 67 yo female with PMH Asthma, HTN, HLD, Implanted loop recorder in September 2017, presents with complaint of dizziness and headache. She stated the headache starts in her forehead and goes over the top of her head to the back of her head. She endorsed a history of seizures which she states she gets dizzy and confused and sometimes loses consciousness. She admited to having one episode last week that led to loss of consciousness and she was found on the floor in her building. CT head completed and without acute changes. Neurologically stable during my evaluation. No focal deficits, does not require further imaging. Can continue TPM. Can give meclezine as needed. Increased hydration discussed. Monitor BP, maintain normotensive range. Can continue lipitor.
[2018-02-27] MEDS ORDERED: PANTOPRAZOLE SOD 40 MG SUSPENSION PACKET PO SCH (10:00)
[2018-02-27] MEDS ORDERED: PARoxetine HCL 20 MG TABLET (FP) PO SCH (10:00)
[2018-02-27] MEDS ORDERED: PT OWN MED DRAWER 7, Y5N ONE ×2 (10:40→12:38)
[2018-02-27] MEDS: GABAPENTIN 300 MG CAPSULE (FP) PO SCH (12:33)
[2018-02-27] MEDS: ASPIRIN COATED 81 MG TABLET.EC PO SCH (12:33)
[2018-02-27] MEDS: TOPIRAMATE 25 MG TABLET (FP) PO SCH (12:33)
[2018-02-27] MEDS: FLUTICASONE PROP 0.05% 16 GM NASAL SPRAY NS SCH (12:33)
[2018-02-27] MEDS: HYDROCHLOROTHIAZIDE 25 MG TABLET (FP) PO SCH (12:33)
[2018-02-27] MEDS: BUDESONIDE/FORMETEROL FUMARATE 80/4.5 mcg INHALER IH SCH (12:34)
--- NOTE | 2018-02-27 14:00 | DS ---
Physical Exam: SUBJECTIVE: Patient is a 67 y/o female with a history of asthma, htn, hld, loop recorder, seizures, who is here for headache and dizziness. Patient has no acute complaints and no complaints overnight. OBJECTIVE: Vital Signs Period Temp Pulse Resp BP Sys/Matos Pulse Ox Last 24 Hr 97.7 F-98.4 F 61-69 19-20 106-150/69-84 97-97 PHYSICAL EXAM GENERAL: The patient is awake, alert, and fully oriented, in no acute distress. HEAD: Normal with no signs of trauma. LUNGS: Breath sounds equal, clear to auscultation bilaterally, HEART: Regular rate and rhythm, ABDOMEN: Soft, nontender, nondistended, normoactive bowel sounds, EXTREMITIES: 2+ pulses, warm, well-perfused, no edema. PSYCH: Normal mood, normal affect. SKIN: Warm, dry, normal turgor, no rashes or lesions noted LABS HOSPITAL COURSE: Date of Admission:02/26/18 Patient is a 67 y/o female with a history of asthma, htn, hld, loop recorder, seizures, who is here for headache and dizziness. She has a long history of dizziness, seizures, and migraines and follows with Dr. Zimmer as an outpatient. Per neurologist, Dr. De La Garza and Dr. Zimmer, patient should continue to take Topiramate 50 mg BID every day. Patient will follow up with Dr. Zimmer as an outpatient. Patient stable and discharged. Chest Xray: no acute pulmonary disease Head CT: no acute intracranial pathology Date of Discharge: 02/27/18 Minutes to complete discharge: 35 Discharge Summary Reason For Visit: DIZZINESS Condition: Improved - Instructions Diet, Activity, Other Instructions: You came to the hospital because you were having headaches and dizziness. Dr. De La Garza, the neurologist, saw you and determined the headaches to be due to you not taking your topiramate as needed. You should continue to take the Topiramate 50 mg by mouth twice a day. You should continue to take your other home medications as prescribed. You should follow up with your primary care doctor. You should follow up with your neurologist, Dr. Zimmer for further worsening of symptoms. Please return to the Emergency department if you have any worsening of symptoms , nausea vomiting, diarrhea, chest pain, shortness of breath, or headache. Referrals: Rex Zimmer MD [Staff Physician] - Piper Arechiga MD [Primary Care Provider] - Disposition: HOME - Home Medications Comprehensive Discharge Medication List: Ambulatory Orders Paroxetine HCl [Paxil -] 20 mg PO DAILY 03/06/12 Omeprazole [Prilosec (RX)] 40 mg PO DAILY 09/15/15 Albuterol Sulfate Inhaler - [Ventolin HFA Inhaler -] 1 - 2 inh PO QID 05/27/17 Fluticasone/Salmeterol [Advair 250-50 Diskus] 1 each IH DAILY 05/27/17 Metoprolol Succinate 50 mg PO DAILY #30 tab.er.24h 07/23/17 Topiramate [Topamax] 50 mg PO BID #30 tablet 01/13/18 Alendronate Sodium/Vitamin D3 [Fosamax Plus D 70 mg-5,600 Iu vIT d] 1 each PO WEEKLY 02/26/18 Alprazolam [Alprazolam ER] 0.5 mg PO BID PRN 02/26/18 Atorvastatin Ca [Lipitor] 40 mg PO HS 02/26/18 Cyclobenzaprine HCl 10 mg PO BID 02/26/18 Gabapentin 300 mg PO BID 02/26/18 Hydrochlorothiazide [Hctz -] 25 mg PO DAILY 02/26/18 Montelukast Na [Singulair -] 10 mg PO HS 02/26/18 Aspirin Coated [Ecotrin -] 81 mg PO DAILY tablet.ec 02/27/18 This patient is new to me today: No Emergency Visit: No Critical Care patient: No - Discharge Referral Referred to [facility] Med P.C.: No
[2018-02-27 14:07] VITALS: BP 144/82; PULSE 70; TEMP 98.1
--- NOTE | 2018-02-27 14:27 | PN ---
Teaching Attending Note Name of Resident: Marline Cedeno ATTENDING PHYSICIAN STATEMENT I saw and evaluated the patient. I reviewed the resident's note and discussed the case with the resident. I agree with the resident's findings and plan as documented. SUBJECTIVE: Patient feels better ,no acute distress OBJECTIVE: Vital Signs Temperature 98.1 F 02/27/18 14:05 Pulse Rate 70 02/27/18 14:05 Respiratory Rate 18 02/27/18 14:05 Blood Pressure 144/82 02/27/18 14:05 O2 Sat by Pulse Oximetry (%) 97 02/27/18 01:00 CBCD WBC 6.9 K/mm3 (4.0-10.0) 02/26/18 05:55 RBC 3.63 M/mm3 (3.60-5.2) 02/26/18 05:55 Hgb 11.7 GM/dL (10.7-15.3) 02/26/18 05:55 Hct 33.7 % (32.4-45.2) 02/26/18 05:55 MCV 92.8 fl (80-96) 02/26/18 05:55 MCHC 34.8 g/dl (32.0-36.0) 02/26/18 05:55 RDW 13.3 % (11.6-15.6) 02/26/18 05:55 Plt Count 198 K/MM3 (134-434) 02/26/18 05:55 MPV 8.6 fl (7.5-11.1) 02/26/18 05:55 CMP Sodium 145 mmol/L (136-145) 02/26/18 05:55 Potassium 3.8 mmol/L (3.5-5.1) 02/26/18 05:55 Chloride 110 mmol/L (98-107) H 02/26/18 05:55 Carbon Dioxide 26 mmol/L (21-32) 02/26/18 05:55 Anion Gap 9 (8-16) 02/26/18 05:55 BUN 30 mg/dL (7-18) H 02/26/18 05:55 Creatinine 0.8 mg/dL (0.55-1.02) 02/26/18 05:55 Creat Clearance w eGFR > 60 (>60) 02/26/18 05:55 Random Glucose 86 mg/dL (74-106) 02/26/18 05:55 Calcium 8.4 mg/dL (8.5-10.1) L 02/26/18 05:55 Total Bilirubin 0.4 mg/dL (0.2-1.0) 02/25/18 21:50 AST 16 U/L (15-37) 02/25/18 21:50 ALT 25 U/L (12-78) 02/25/18 21:50 Alkaline Phosphatase 98 U/L (45-117) 02/25/18 21:50 Total Protein 7.8 g/dl (6.4-8.2) 02/25/18 21:50 Albumin 4.1 g/dl (3.4-5.0) 02/25/18 21:50 CARDIAC ENZYMES Troponin I < 0.02 ng/ml (0.00-0.05) 02/25/18 21:50 Current Medications Generic Name Dose Route Start Last Admin Trade Name Freq PRN Reason Stop Dose Admin Aspirin 81 mg 02/26/18 10:00 02/27/18 12:33 Ecotrin - PO 81 mg DAILY [facility] Administration Atorvastatin Calcium 40 mg 02/26/18 22:00 02/26/18 22:21 Lipitor - PO 40 mg HS [facility] Administration Budesonide/Formoterol Fumarate 2 puff 02/26/18 10:00 02/27/18 12:34 Symbicort 80/4.5mcg - IH 2 puff BID [facility] Administration Fluticasone Propionate 1 spray 02/26/18 10:00 02/27/18 12:33 Flonase - NS 1 spray DAILY [facility] Administration Gabapentin 300 mg 02/26/18 22:00 02/27/18 12:33 Neurontin - PO 300 mg BID [facility] Administration Heparin Sodium (Porcine) 5,000 unit 02/26/18 06:00 02/27/18 06:51 Heparin - SQ 5,000 unit TID [facility] Administration Hydrochlorothiazide 25 mg 02/26/18 13:45 02/27/18 12:33 Hctz - PO 25 mg DAILY [facility] Administration Meclizine HCl 12.5 mg 02/27/18 09:35 Antivert - PO TID [facility]N [facility] Metoprolol Succinate 50 mg 02/26/18 10:00 02/27/18 12:33 Toprol Xl - PO 50 mg DAILY [facility] Administration Montelukast Sodium 10 mg 02/26/18 22:00 02/26/18 22:21 Singulair - PO 10 mg HS [facility] Administration Pantoprazole Sodium 40 mg 02/27/18 10:00 02/27/18 12:33 Protonix Packets For Oral Suspension - PO 40 mg DAILY [facility] Administration Paroxetine HCl 20 mg 02/27/18 10:00 02/27/18 12:33 Paxil - PO 20 mg DAILY [facility] Administration Topiramate 50 mg 02/26/18 15:30 02/27/18 12:33 Topamax - PO 50 mg BID [facility] Administration Home Medications Medication Instructions Recorded Paroxetine HCl [Paxil -] 20 mg PO DAILY 03/06/12 Omeprazole [Prilosec (RX)] 40 mg PO DAILY 09/15/15 Albuterol Sulfate Inhaler - 1 - 2 inh PO QID 05/27/17 [Ventolin HFA Inhaler -] Fluticasone/Salmeterol [Advair 1 each IH DAILY 05/27/17 250-50 Diskus] Metoprolol Succinate 50 mg PO DAILY #30 tab.er.24h 07/23/17 Topiramate [Topamax] 50 mg PO BID #30 tablet 01/13/18 Alendronate Sodium/Vitamin D3 1 each PO WEEKLY 02/26/18 [Fosamax Plus D 70 mg-5,600 Iu vIT d] Alprazolam [Alprazolam ER] 0.5 mg PO BID PRN 02/26/18 Atorvastatin Ca [Lipitor] 40 mg PO HS 02/26/18 Cyclobenzaprine HCl 10 mg PO BID 02/26/18 Gabapentin 300 mg PO BID 02/26/18 Hydrochlorothiazide [Hctz -] 25 mg PO DAILY 02/26/18 Montelukast Na [Singulair -] 10 mg PO HS 02/26/18 Aspirin Coated [Ecotrin -] 81 mg PO DAILY tablet.ec 02/27/18 PE: per resident's note ASSESSMENT AND PLAN: Patient is a 67 y/o female with a history of asthma, htn, hld, loop recorder, seizures, who is here for headache and dizziness. # Headache as per neuro: patient was not taking Topamax , continued by Neuro. #HTN continue home meds #HLD atorvastatin 40 mg continue #Asthma continue home meds #chronic back pain continue gabapentin 300 BID #depression continue Paxil patient is better home can be discharged home.
== END 2018-02-27 17:03 | disposition home or self-care (01) ==
LOC: JER 19:34 → JERBED 02-26 01:36 → UNDOADMOB 02-26 01:59 → JERBED 02-26 01:59 → J5S 02-26 07:00
PROVIDERS: ADMIT Internal Medicine; ATTEND Internal Medicine
PROC: 3E0337Z Introduction of Electrolytic and Water Balance Substance into Peripheral Vein, Percutaneous Approach (ICD-10-PCS; principal; 2018-02-26)
PROC: 3E0F7GC Introduction of Other Therapeutic Substance into Respiratory Tract, Via Natural or Artificial Opening (ICD-10-PCS; 2018-02-26)
DX: R42 Dizziness and giddiness (principal); R55 Syncope and collapse; I10 Essential (primary) hypertension; E78.5 Hyperlipidemia, unspecified; J45.909 Unspecified asthma, uncomplicated; J44.9 Chronic obstructive pulmonary disease, unspecified; D50.9 Iron deficiency anemia, unspecified; K21.9 Gastro-esophageal reflux disease without esophagitis; K76.0 Fatty (change of) liver, not elsewhere classified; Z96.653 Presence of artificial knee joint, bilateral; Z79.82 Long term (current) use of aspirin; Z88.1 Allergy status to other antibiotic agents; Z95.818 Presence of other cardiac implants and grafts; N17.9 Acute kidney failure, unspecified; E66.9 Obesity, unspecified; Z68.26 Body mass index [BMI] 26.0-26.9, adult; F32.9 Major depressive disorder, single episode, unspecified; M54.9 Dorsalgia, unspecified; G89.29 Other chronic pain; G43.909 Migraine, unspecified, not intractable, without status migrainosus; G25.81 Restless legs syndrome; G92 Toxic encephalopathy
CPT/HCPCS: 36415; 70450-TC; 71045-TC-FY; 80048; 80053; 83735; 84100; 84484; 85025; 85027; 93005; 93010; 94640; 96360; 96361; 97116-GP; 97161-GP; 99285-25; G0378; J1644; J7030

== ENCOUNTER 2023-10-28 12:59 | Emergency (ER) | payer OTHER ==
[2023-10-28 13:06] VITALS: BMI 32.0
[2023-10-28] MEDS ORDERED: ACETAMINOPHEN INJECTION 100 ML IVPB ONE (14:03)
[2023-10-28 14:11] LABS: BASO % 0.2 % (0-2.0); EOS % 1.9 % (0-4.5); HEMATOCRIT 39.3 % (32.4-45.2); HEMOGLOBIN 13.2 GM/dL (10.7-15.3); LYMPH % 25.1 % (8-40); MCH 32.7 pg (25.7-33.7); MCHC 33.6 g/dl (32.0-36.0); MEAN CELL VOLUME 97.3 fl (80-96); MEAN PLT VOLUME 9.5 fl (7.5-11.1); MONO % 10.5 % (3.8-10.2); NEUT % 62.3 % (42.8-82.8); PLATELET COUNT 117 10^3/uL (134-434); RBC 4.04 M/mm3 (3.60-5.2); RDW 13.7 % (11.6-15.6); WHITE BLOOD COUNT 3.5 K/mm3 (4.0-10.0)
[2023-10-28] MEDS: ACETAMINOPHEN 1000 MG/100 ML BAG IVPB ONE (14:11)
[2023-10-28] MEDS: SODIUM CHLORIDE IV ONE (14:11)
[2023-10-28] MEDS: SODIUM CHLORIDE 1,000 ML IV ONE (14:12)
[2023-10-28 14:16] LABS: INR 1.1 (0.83-1.09); PROTHROMBIN TIME (PATIENT) 12.7 SEC (9.7-13.0)
[2023-10-28 14:18] LABS: ACTIVATED PTT 24.6 SECONDS (25.2-36.5)
[2023-10-28 14:53] LABS: VENOUS BASE EXCESS -9.8 mmol/L (-2-2); VENOUS O2 SATURATION 95.9 % (70-80); VENOUS PCO2 32.3 mmHg (38-52); VENOUS PH 7.3 (7.310-7.410)
[2023-10-28 15:03] LABS: POTASSIUM 3.8 mmol/L (3.5-5.1)
[2023-10-28 15:04] LABS: CALCIUM 8.6 mg/dL (8.5-10.1)
[2023-10-28 15:05] LABS: ALBUMIN 3.5 g/dl (3.4-5.0); BLOOD UREA NITROGEN 19.2 mg/dL (7-18)
[2023-10-28 15:09] LABS: TOT PROT 6.7 g/dl (6.4-8.2)
[2023-10-28 15:10] LABS: BILIRUBIN,TOTAL 0.3 mg/dL (0.2-1)
[2023-10-28 15:25] LABS: PH,URINE 5.5 (5.0-8.0); URINE APPEARANCE CLOUDY; URINE BILIRUBIN NEGATIVE (NEGATIVE); URINE COLOR YELLOW; URINE GLUCOSE (UA) NEGATIVE (NEGATIVE); URINE KETONE NEGATIVE (NEGATIVE); URINE LEUK ESTERASE NEGATIVE (NEGATIVE); URINE NITRITE NEGATIVE (NEGATIVE); URINE PROTEIN NEGATIVE (NEGATIVE); URINE UROBILINOGEN 0.2 mg/dL (0.2-1.0)
[2023-10-28 17:39] VITALS: BP 110/60; PULSE 70; RESP 22; TEMP 98
== END 2023-10-28 18:00 | disposition home or self-care (01) ==
LOC: JER 12:59
PROC: 3E033NZ Introduction of Analgesics, Hypnotics, Sedatives into Peripheral Vein, Percutaneous Approach (ICD-10-PCS; principal; 2023-10-28)
PROC: 3E0337Z Introduction of Electrolytic and Water Balance Substance into Peripheral Vein, Percutaneous Approach (ICD-10-PCS; 2023-10-28)
DX: R19.7 Diarrhea, unspecified (principal); T36.95XA Adverse effect of unspecified systemic antibiotic, initial encounter; R10.84 Generalized abdominal pain; R63.0 Anorexia; R42 Dizziness and giddiness; Z20.822 Contact with and (suspected) exposure to COVID-19
CPT/HCPCS: 0241U-QW; 36415; 71045-TC-FY; 74177-TC; 80053; 81003; 82803; 83605; 84484; 85025; 85610; 85730; 86850; 86900; 86901; 87040; 87086; 87186; 87324; 87449; 93005; 93010; 99285-25; J0131; Q9967

== ENCOUNTER 2024-05-08 12:40 | Inpatient (IN) | payer OTHER ==
[2024-05-08 12:47] VITALS: BMI 33.2
[2024-05-08] MEDS ORDERED: ALBUTEROL SO4 2.5/IPRATROPIUM 0.5 INH SOL 3 ML VIAL.NEB. NEB ONE (12:58)
[2024-05-08] MEDS ORDERED: AZITHROMYCIN IVPB 500 MG/250 ML BAG IVPB ONE (13:17)
[2024-05-08] MEDS ORDERED: DEXAMETHASONE SOD PHOSPHATE 10 MG/1 ML VIAL ONE (13:17)
[2024-05-08] MEDS: DEXAMETHASONE SOD PHOSPHATE 10 MG/1 ML VIAL IVPUSH ONE (13:53)
[2024-05-08] MEDS: DEXAMETHASONE SOD PHOSPHATE 10 MG/1 ML VIAL IM ONE (13:53)
[2024-05-08] MEDS: AZITHROMYCIN IVPB 500 MG in DEXTROSE 5%-WATER - 250 ML IVPB ONE (13:53)
[2024-05-08 13:54] LABS: VENOUS BASE EXCESS -7.5 mmol/L (-2-2); VENOUS O2 SATURATION 85.3 % (70-80); VENOUS PCO2 32.3 mmHg (38-52); VENOUS PH 7.343 (7.310-7.410)
[2024-05-08 14:03] LABS: BASO % 0.2 % (0-2.0); EOS % 0.9 % (0-4.5); HEMATOCRIT 33.3 % (32.4-45.2); LYMPH % 40.5 % (8-40); MCH 32.4 pg (25.7-33.7); MCHC 32.9 g/dl (32.0-36.0); MEAN CELL VOLUME 98.4 fl (80-96); MEAN PLT VOLUME 8.5 fl (7.5-11.1); MONO % 9.1 % (3.8-10.2); NEUT % 49.3 % (42.8-82.8); PLATELET COUNT 151 10^3/uL (134-434); RBC 3.38 M/mm3 (3.60-5.2); WHITE BLOOD COUNT 7.9 K/mm3 (4.0-10.0)
[2024-05-08 14:23] LABS: MAGNESIUM 1.5 mg/dL (1.8-2.4); POTASSIUM 3.5 mmol/L (3.5-5.1)
[2024-05-08 14:27] LABS: ALBUMIN 3.5 g/dl (3.4-5.0); CALCIUM 8.9 mg/dL (8.5-10.1); PHOSPHOROUS 2.4 mg/dL (2.5-4.9)
[2024-05-08 14:31] LABS: N-TERMINAL BNP 1254.8 pg/ml (5-125)
[2024-05-08 14:32] LABS: BILIRUBIN,TOTAL 0.4 mg/dL (0.2-1); TOT PROT 6.7 g/dl (6.4-8.2)
[2024-05-08] MEDS ORDERED: MAGNESIUM SULFATE IN WATER 2 GM/50 ML IVPB IVPB ONE (16:43)
[2024-05-08] MEDS: MAGNESIUM SULFATE IN WATER 2 GM/50 ML IVPB IVPB ONE (16:53)
[2024-05-08] MEDS ORDERED: ALBUTEROL SO4 0.5 % INH SOLN 2.5 MG/0.5 ML VIAL.NEB. NEB ONE (16:57)
[2024-05-08] MEDS ORDERED: ALBUTEROL SO4 0.083% IH SOL 2.5 MG/3 ML VIAL.NEB. NEB ONE ×2 (16:57→17:02)
[2024-05-08] MEDS: ALBUTEROL SO4 0.083% IH SOL 2.5 MG/3 ML VIAL.NEB. NEB ONE (17:18)
[2024-05-08] MEDS ORDERED: ACETAMINOPHEN INJECTION 100 ML ONE (17:53)
[2024-05-08] MEDS: ACETAMINOPHEN 1000 MG/100 ML BAG IVPB ONE (18:02)
[2024-05-08] MEDS ORDERED: NAPH,MB-DB/K PH,MBDB POWDER PACKET ONE (18:24)
[2024-05-08] MEDS: NAPH,MB-DB/K PH,MBDB POWDER PACKET PO ONE (18:42)
[2024-05-08] MEDS: predniSONE 20 MG TABLET (UD) PO SCH (18:44)
[2024-05-08] MEDS: ALBUTEROL SO4 2.5/IPRATROPIUM 0.5 INH SOL 3 ML VIAL.NEB. NEB SCH (20:52)
[2024-05-08] MEDS ORDERED: PATIENT'S OWN MEDICATION (NON-FORMULARY) (Topiramate [Topamax] 50 MG Tablet) PO SCH (22:00)
[2024-05-08] MEDS: IBUPROFEN 200 MG TABLET PO PRN (22:02)
[2024-05-08] MEDS: guaiFENesin/D-METHORPHAN HB 10 ML UNIT-DOSE CUPS PO PRN (22:02)
[2024-05-08] MEDS: ROSUVASTATIN CA 40 MG TABLET PO SCH (22:03)
[2024-05-08] MEDS: TOPIRAMATE 25 MG TABLET PO SCH (22:03)
[2024-05-08] MEDS: SERTRALINE HCL 50 MG TABLET (FP) PO SCH (22:03)
[2024-05-08] MEDS: MEMANTINE HCL 10 MG TABLET (FP) PO SCH (22:03)
[2024-05-09] MEDS: FLUTICASONE PROP 0.05% 16 GM NASAL SPRAY NS SCH (00:30)
[2024-05-09] MEDS: ACETAMINOPHEN 325 MG TABLET (FP) PO PRN (02:06)
[2024-05-09 08:59] LABS: HEMATOCRIT 34.3 % (32.4-45.2); HEMOGLOBIN 11.2 GM/dL (10.7-15.3); MCH 32.4 pg (25.7-33.7); MCHC 32.7 g/dl (32.0-36.0); MEAN CELL VOLUME 98.9 fl (80-96); MEAN PLT VOLUME 8.4 fl (7.5-11.1); PLATELET COUNT 168 10^3/uL (134-434); RBC 3.47 M/mm3 (3.60-5.2); RDW 13.6 % (11.6-15.6); WHITE BLOOD COUNT 6.4 K/mm3 (4.0-10.0)
[2024-05-09 09:15] LABS: POTASSIUM 4.2 mmol/L (3.5-5.1)
[2024-05-09 09:18] LABS: ALBUMIN 3.6 g/dl (3.4-5.0); BLOOD UREA NITROGEN 18.4 mg/dL (7-18); CALCIUM 8.6 mg/dL (8.5-10.1); MAGNESIUM 2.1 mg/dL (1.8-2.4)
[2024-05-09 09:21] LABS: CREATININE 0.9 mg/dL (0.55-1.3); PHOSPHOROUS 3.2 mg/dL (2.5-4.9)
[2024-05-09 09:23] LABS: BILIRUBIN,TOTAL 0.4 mg/dL (0.2-1); TOT PROT 6.9 g/dl (6.4-8.2)
[2024-05-09] MEDS: ENOXAPARIN NA (PORCINE) 40 MG/0.4 ML DISP.SYRIN SQ SCH (09:35)
[2024-05-09] MEDS: predniSONE 20 MG TABLET (UD) PO SCH (09:40)
[2024-05-09] MEDS: AZITHROMYCIN 250 MG TABLET PO SCH (09:42)
[2024-05-09] MEDS: SPIRONOLACTONE 25 MG TABLET PO SCH (09:43)
[2024-05-09] MEDS: SACUBITRIL/VALSARTAN 24 MG-26 MG TABLET PO SCH (09:43)
[2024-05-09] MEDS: PANTOPRAZOLE 40 MG TABLET PO SCH (09:44)
[2024-05-09] MEDS: DONEPEZIL HCL 10 MG TABLET (FP) PO SCH (09:47)
[2024-05-09] MEDS: EXEMESTANE 25 MG TABLET PO SCH (09:48)
[2024-05-09] MEDS: metoPROLOL SUCCINATE 25 MG TAB.SR.24H (FP) PO SCH (09:48)
[2024-05-09] MEDS ORDERED: PATIENT'S OWN MEDICATION (NON-FORMULARY) (Omeprazole [Omeprazole] 20 MG Tablet.Dr) PO SCH (10:00)
[2024-05-09] MEDS ORDERED: PATIENT'S OWN MEDICATION (NON-FORMULARY) (Exemestane 25 MG Tablet) PO SCH (10:00)
[2024-05-09] MEDS: methylPREDNISolone NA SUCC 40 MG/1 ML VIAL IVPUSH SCH ×2 (13:12→21:56)
[2024-05-09] MEDS ORDERED: hydrOXYzine PAMOATE 50 MG CAPSULE (FP) PO SCH (17:30)
[2024-05-09] MEDS: GABAPENTIN 300 MG CAPSULE PO SCH (17:46)
[2024-05-10] MEDS: hydrOXYzine PAMOATE 25 MG CAPSULE (FP) PO SCH (09:34)
[2024-05-10] MEDS: FLUTICASONE/UMECLIDIN/VILANTER(200-62.5-25 TRELEGY ELLIPTA) INAHLER IH SCH (09:39)
[2024-05-10] MEDS: guaiFENesin 200 MG/10 ML 10 ML UNIT-DOSE CUPS PO PRN (14:01)
[2024-05-11] MEDS: ALBUTEROL SO4 2.5/IPRATROPIUM 0.5 INH SOL 3 ML VIAL.NEB. NEB ONE (12:34)
[2024-05-11] MEDS: FUROSEMIDE 40 MG/4 ML INJECTABLE VIAL IVPUSH ONE (12:39)
[2024-05-11] MEDS: ROSUVASTATIN CA 20 MG TABLET PO SCH (21:32)
[2024-05-12 08:58] LABS: HEMATOCRIT 38.3 % (32.4-45.2); HEMOGLOBIN 12.6 GM/dL (10.7-15.3); MCH 31.7 pg (25.7-33.7); MCHC 32.9 g/dl (32.0-36.0); MEAN CELL VOLUME 96.4 fl (80-96); MEAN PLT VOLUME 8.2 fl (7.5-11.1); PLATELET COUNT 224 10^3/uL (134-434); RBC 3.97 M/mm3 (3.60-5.2); RDW 13.2 % (11.6-15.6); WHITE BLOOD COUNT 12.3 K/mm3 (4.0-10.0)
[2024-05-12 09:28] LABS: ALBUMIN 3.8 g/dl (3.4-5.0); BLOOD UREA NITROGEN 41.9 mg/dL (7-18); CALCIUM 9.5 mg/dL (8.5-10.1)
[2024-05-12 09:31] LABS: CREATININE 1.1 mg/dL (0.55-1.3)
[2024-05-12 09:33] LABS: BILIRUBIN,TOTAL 0.3 mg/dL (0.2-1); TOT PROT 7.3 g/dl (6.4-8.2)
[2024-05-12 10:13] LABS: ANISOCYTOSIS 0; HELMET CELLS 0; HOWELL-JOLLY BODIES 0; MACROCYTOSIS 0; OVALOCYTE 0; ROULEAU 0; SICKELED CELLS 0; TARGET CELLS 0; TEAR DROP CELLS 0; TOXIC GRANULATION 0
[2024-05-12] MEDS: LIDOCAINE 5% TOPICAL PATCH TP SCH (12:36)
[2024-05-12] MEDS: methylPREDNISolone NA SUCC 40 MG/1 ML VIAL IVPUSH SCH (18:02)
[2024-05-12] MEDS: LIDOCAINE PATCH REMOVAL MC SCH (21:18)
[2024-05-13 08:56] LABS: HEMATOCRIT 37.3 % (32.4-45.2); HEMOGLOBIN 12.7 GM/dL (10.7-15.3); MCH 32.5 pg (25.7-33.7); MCHC 34.1 g/dl (32.0-36.0); MEAN CELL VOLUME 95.3 fl (80-96); PLATELET COUNT 213 10^3/uL (134-434); RBC 3.91 M/mm3 (3.60-5.2); RDW 13.6 % (11.6-15.6); WHITE BLOOD COUNT 10.7 K/mm3 (4.0-10.0)
[2024-05-13 09:21] LABS: POTASSIUM 3.9 mmol/L (3.5-5.1)
[2024-05-13 09:33] LABS: ALBUMIN 3.6 g/dl (3.4-5.0); BLOOD UREA NITROGEN 42.9 mg/dL (7-18)
[2024-05-13 09:36] LABS: CREATININE 1.1 mg/dL (0.55-1.3)
[2024-05-13 09:37] LABS: ANISOCYTOSIS 0; BILIRUBIN,TOTAL 0.3 mg/dL (0.2-1); MACROCYTOSIS 0
[2024-05-13] MEDS: AZITHROMYCIN IVPB 500 MG/250 ML BAG IVPB SCH (15:04)
[2024-05-14] MEDS: ALBUTEROL SO4 2.5/IPRATROPIUM 0.5 INH SOL 3 ML VIAL.NEB. NEB SCH (07:30)
[2024-05-14] MEDS ORDERED: guaiFENesin 200 MG/10 ML 10 ML UNIT-DOSE CUPS PO PRN (07:50)
[2024-05-14 09:34] LABS: HEMOGLOBIN 12.3 GM/dL (10.7-15.3); MCH 32.5 pg (25.7-33.7); MCHC 34.2 g/dl (32.0-36.0); MEAN PLT VOLUME 8.2 fl (7.5-11.1); PLATELET COUNT 215 10^3/uL (134-434); RBC 3.79 M/mm3 (3.60-5.2); RDW 13.2 % (11.6-15.6); WHITE BLOOD COUNT 11.6 K/mm3 (4.0-10.0)
[2024-05-14 09:45] LABS: POTASSIUM 4.4 mmol/L (3.5-5.1)
[2024-05-14 09:58] LABS: ALBUMIN 3.5 g/dl (3.4-5.0)
[2024-05-14 09:59] LABS: BLOOD UREA NITROGEN 35.2 mg/dL (7-18); MAGNESIUM 2.4 mg/dL (1.8-2.4)
[2024-05-14 10:02] LABS: PHOSPHOROUS 3.3 mg/dL (2.5-4.9)
[2024-05-14 10:04] LABS: TOT PROT 6.7 g/dl (6.4-8.2)
[2024-05-14 10:06] LABS: BILIRUBIN,TOTAL 0.3 mg/dL (0.2-1)
[2024-05-14] MEDS: EXEMESTANE 25 MG TABLET PO SCH (10:10)
[2024-05-14] MEDS: ENOXAPARIN NA (PORCINE) 40 MG/0.4 ML DISP.SYRIN SQ SCH (10:10)
[2024-05-14] MEDS: metoPROLOL SUCCINATE 25 MG TAB.SR.24H (FP) PO SCH (10:11)
[2024-05-14] MEDS: TOPIRAMATE 25 MG TABLET PO SCH (10:11)
[2024-05-14] MEDS: SACUBITRIL/VALSARTAN 24 MG-26 MG TABLET PO SCH (10:12)
[2024-05-14] MEDS: MEMANTINE HCL 10 MG TABLET (FP) PO SCH (10:12)
[2024-05-14] MEDS: GABAPENTIN 300 MG CAPSULE PO SCH (10:12)
[2024-05-14] MEDS: SPIRONOLACTONE 25 MG TABLET PO SCH (10:12)
[2024-05-14] MEDS: SERTRALINE HCL 50 MG TABLET (FP) PO SCH (10:13)
[2024-05-14] MEDS: methylPREDNISolone NA SUCC 40 MG/1 ML VIAL IVPUSH SCH ×2 (10:13→17:08)
[2024-05-14] MEDS: PANTOPRAZOLE 40 MG TABLET PO SCH (10:13)
[2024-05-14] MEDS: hydrOXYzine PAMOATE 25 MG CAPSULE (FP) PO SCH (10:14)
[2024-05-14] MEDS: LIDOCAINE 5% TOPICAL PATCH TP SCH (10:14)
[2024-05-14] MEDS: FLUTICASONE/UMECLIDIN/VILANTER(200-62.5-25 TRELEGY ELLIPTA) INAHLER IH SCH (10:16)
[2024-05-14] MEDS: FLUTICASONE PROP 0.05% 16 GM NASAL SPRAY NS SCH (10:16)
[2024-05-14] MEDS: ACETAMINOPHEN 325 MG TABLET (FP) PO PRN (10:22)
[2024-05-14] MEDS: BENZOCAINE/MENTH/CETYLPYRD CL 1 EACH LOZENGE MM PRN (10:44)
[2024-05-14] MEDS: guaiFENesin/CODEINE 10 ML UNIT-DOSE CUPS PO PRN (10:44)
[2024-05-14] MEDS: DONEPEZIL HCL 10 MG TABLET (FP) PO SCH (23:08)
[2024-05-14] MEDS: LIDOCAINE PATCH REMOVAL MC SCH (23:09)
[2024-05-14] MEDS: ROSUVASTATIN CA 40 MG TABLET PO SCH (23:09)
[2024-05-15 07:28] LABS: HEMATOCRIT 36.5 % (32.4-45.2); MEAN CELL VOLUME 97.1 fl (80-96); MEAN PLT VOLUME 7.9 fl (7.5-11.1); PLATELET COUNT 194 10^3/uL (134-434); RBC 3.76 M/mm3 (3.60-5.2); RDW 13.5 % (11.6-15.6); WHITE BLOOD COUNT 11.7 K/mm3 (4.0-10.0)
[2024-05-15 07:57] LABS: POTASSIUM 4.5 mmol/L (3.5-5.1)
[2024-05-15 08:01] LABS: ALBUMIN 3.3 g/dl (3.4-5.0)
[2024-05-15 08:02] LABS: BLOOD UREA NITROGEN 34.6 mg/dL (7-18); MAGNESIUM 2.2 mg/dL (1.8-2.4)
[2024-05-15 08:05] LABS: CREATININE 0.9 mg/dL (0.55-1.3); PHOSPHOROUS 3.2 mg/dL (2.5-4.9)
[2024-05-15 08:06] LABS: BILIRUBIN,TOTAL 0.2 mg/dL (0.2-1); TOT PROT 6.4 g/dl (6.4-8.2)
[2024-05-15] MEDS: AZITHROMYCIN IVPB 250 MG in DEXTROSE 5%-WATER - 250 ML IVPB SCH (15:16)
[2024-05-15] MEDS: ROSUVASTATIN CA 20 MG TABLET PO SCH (22:55)
[2024-05-15] MEDS: hydrOXYzine PAMOATE 50 MG CAPSULE (FP) PO SCH (22:56)
[2024-05-17 08:05] LABS: HEMATOCRIT 36.9 % (32.4-45.2); HEMOGLOBIN 12.3 GM/dL (10.7-15.3); MCH 32.3 pg (25.7-33.7); MCHC 33.2 g/dl (32.0-36.0); MEAN PLT VOLUME 8.2 fl (7.5-11.1); PLATELET COUNT 195 10^3/uL (134-434); RBC 3.81 M/mm3 (3.60-5.2); RDW 12.9 % (11.6-15.6); WHITE BLOOD COUNT 14.3 K/mm3 (4.0-10.0)
[2024-05-17 08:09] LABS: POTASSIUM 4.3 mmol/L (3.5-5.1)
[2024-05-17 08:14] LABS: ALBUMIN 3.2 g/dl (3.4-5.0); BLOOD UREA NITROGEN 32.6 mg/dL (7-18); CALCIUM 8.3 mg/dL (8.5-10.1)
[2024-05-17 08:18] LABS: BILIRUBIN,TOTAL 0.3 mg/dL (0.2-1); TOT PROT 6.3 g/dl (6.4-8.2)
[2024-05-17] MEDS: INSULIN ASPART SLIDING SCALE (NOVOLOG) 1 VIAL SQ SCH (11:44)
[2024-05-17] MEDS: methylPREDNISolone NA SUCC 40 MG/1 ML VIAL IVPUSH SCH ×2 (14:33→15:24)
[2024-05-17] MEDS: ALBUTEROL SO4 2.5/IPRATROPIUM 0.5 INH SOL 3 ML VIAL.NEB. NEB SCH (20:10)
[2024-05-17] MEDS ORDERED: hydrOXYzine PAMOATE 25 MG CAPSULE (FP) PO ONE (21:10)
[2024-05-17] MEDS: GABAPENTIN 300 MG CAPSULE PO SCH (21:20)
[2024-05-17] MEDS: MEMANTINE HCL 10 MG TABLET (FP) PO SCH (21:20)
[2024-05-17] MEDS: DONEPEZIL HCL 10 MG TABLET (FP) PO SCH (21:21)
[2024-05-17] MEDS: SERTRALINE HCL 50 MG TABLET (FP) PO SCH (21:22)
[2024-05-17] MEDS: ROSUVASTATIN CA 20 MG TABLET PO SCH (21:22)
[2024-05-17] MEDS: TOPIRAMATE 25 MG TABLET PO SCH (21:23)
[2024-05-17] MEDS: LIDOCAINE PATCH REMOVAL MC SCH (21:23)
[2024-05-17] MEDS: hydrOXYzine PAMOATE 50 MG CAPSULE (FP) PO SCH (21:24)
[2024-05-17] MEDS: ACETAMINOPHEN 325 MG TABLET (FP) PO PRN (23:03)
[2024-05-18] MEDS: guaiFENesin 200 MG/10 ML 10 ML UNIT-DOSE CUPS PO PRN (00:10)
[2024-05-18] MEDS: INSULIN ASPART SLIDING SCALE (NOVOLOG) 1 VIAL SQ SCH (06:17)
[2024-05-18 09:31] LABS: HEMATOCRIT 39.6 % (32.4-45.2); HEMOGLOBIN 12.9 GM/dL (10.7-15.3); MCH 31.5 pg (25.7-33.7); MCHC 32.5 g/dl (32.0-36.0); MEAN PLT VOLUME 8.4 fl (7.5-11.1); PLATELET COUNT 206 10^3/uL (134-434); RBC 4.09 M/mm3 (3.60-5.2); RDW 13.6 % (11.6-15.6); WHITE BLOOD COUNT 13.9 K/mm3 (4.0-10.0)
[2024-05-18] MEDS ORDERED: hydrOXYzine PAMOATE 25 MG CAPSULE (FP) PO ONE ×2 (09:36→21:09)
[2024-05-18 09:59] LABS: POTASSIUM 4.2 mmol/L (3.5-5.1)
[2024-05-18] MEDS: PANTOPRAZOLE 40 MG TABLET PO SCH (09:59)
[2024-05-18] MEDS: SPIRONOLACTONE 25 MG TABLET PO SCH (09:59)
[2024-05-18] MEDS: metoPROLOL SUCCINATE 25 MG TAB.SR.24H (FP) PO SCH (09:59)
[2024-05-18] MEDS: ENOXAPARIN NA (PORCINE) 40 MG/0.4 ML DISP.SYRIN SQ SCH (10:00)
[2024-05-18 10:01] LABS: ALBUMIN 3.4 g/dl (3.4-5.0); BLOOD UREA NITROGEN 29.4 mg/dL (7-18); CALCIUM 8.9 mg/dL (8.5-10.1); MAGNESIUM 2.3 mg/dL (1.8-2.4)
[2024-05-18] MEDS: LIDOCAINE 5% TOPICAL PATCH TP SCH (10:01)
[2024-05-18] MEDS: AZITHROMYCIN IVPB 500 MG/250 ML BAG IVPB SCH (10:01)
[2024-05-18] MEDS: EXEMESTANE 25 MG TABLET PO SCH (10:03)
[2024-05-18 10:04] LABS: CREATININE 0.9 mg/dL (0.55-1.3)
[2024-05-18 10:05] LABS: PHOSPHOROUS 2.8 mg/dL (2.5-4.9)
[2024-05-18 10:06] LABS: BILIRUBIN,TOTAL 0.4 mg/dL (0.2-1); TOT PROT 6.5 g/dl (6.4-8.2)
[2024-05-18] MEDS: FLUTICASONE PROP 0.05% 16 GM NASAL SPRAY NS SCH (14:23)
[2024-05-18] MEDS: FLUTICASONE/UMECLIDIN/VILANTER(200-62.5-25 TRELEGY ELLIPTA) INAHLER IH SCH (14:23)
[2024-05-18] MEDS: SACUBITRIL/VALSARTAN 24 MG-26 MG TABLET PO SCH (14:24)
[2024-05-18] MEDS: guaiFENesin/D-METHORPHAN HB 10 ML UNIT-DOSE CUPS PO SCH (14:27)
[2024-05-18] MEDS: LEVALBUTEROL HCL 0.63 MG/3 ML VIAL.NEB. IH PRN (15:24)
[2024-05-18 15:34] VITALS: RESP 18
[2024-05-18] MEDS: DEXAMETHASONE 4 MG TABLET (FP) PO SCH (21:14)
[2024-05-18] MEDS: BENZOCAINE/MENTH/CETYLPYRD CL 1 EACH LOZENGE MM PRN (23:19)
[2024-05-19] MEDS ORDERED: guaiFENesin/CODEINE 10 ML UNIT-DOSE CUPS PO PRN (05:00)
[2024-05-19] MEDS ORDERED: hydrOXYzine PAMOATE 25 MG CAPSULE (FP) PO ONE (09:26)
[2024-05-19 16:51] VITALS: BP 126/74; PULSE 81; TEMP 98.2
== END 2024-05-19 16:24 | disposition home or self-care (01) | DRG 191 ==
LOC: JER 12:40 → JERBED 17:08 → J7W 19:49 → OBSVTOIN 05-11 11:57 → J4W 05-12 19:31 → J5S 05-17 18:35
PROVIDERS: ADMIT Student in an Organized Health Care Education/Training Program
DX: J44.1 Chronic obstructive pulmonary disease with (acute) exacerbation (principal); I50.22 Chronic systolic (congestive) heart failure; J45.901 Unspecified asthma with (acute) exacerbation; J98.11 Atelectasis; I11.0 Hypertensive heart disease with heart failure; E78.5 Hyperlipidemia, unspecified; E83.39 Other disorders of phosphorus metabolism; J02.9 Acute pharyngitis, unspecified; E83.42 Hypomagnesemia; K21.9 Gastro-esophageal reflux disease without esophagitis; F41.8 Other specified anxiety disorders; J20.9 Acute bronchitis, unspecified; C50.919 Malignant neoplasm of unspecified site of unspecified female breast; D50.9 Iron deficiency anemia, unspecified; K76.0 Fatty (change of) liver, not elsewhere classified; E78.00 Pure hypercholesterolemia, unspecified; R07.89 Other chest pain; J04.0 Acute laryngitis
CPT/HCPCS: 0241U-QW; 36415; 71045-TC-FY; 71250-TC; 71275-TC; 76705-TC; 80053; 82803; 82962; 83735; 83880; 84100; 84484; 85025; 85027; 87070; 87205; 93005; 93010; 94010; 94640; 94761; 97116-GP; 97162-GP; 99285-25; G0378; J0131; J1100; Q9967

== ENCOUNTER 2024-12-28 16:03 | Emergency (ER) | payer OTHER ==
[2024-12-28 16:20] VITALS: PULSE 71; RESP 18; BMI 26.9
[2024-12-28] MEDS ORDERED: ACETAMINOPHEN INJECTION 100 ML ONE (17:27)
[2024-12-28] MEDS ORDERED: FAMOTIDINE 20 MG/50 ML IVPB 20 MG/50 ML MG IVPB ONE (17:27)
[2024-12-28] MEDS: FAMOTIDINE 20 MG/50 ML IVPB 20 MG/50 ML MG IVPB ONE (17:58)
[2024-12-28] MEDS: ACETAMINOPHEN 1000 MG/100 ML BAG IVPB ONE (17:58)
[2024-12-28 18:20] LABS: PH,URINE 6.5 (5.0-8.0); URINE APPEARANCE CLEAR; URINE BILIRUBIN NEGATIVE (NEGATIVE); URINE COLOR YELLOW; URINE GLUCOSE (UA) NEGATIVE (NEGATIVE); URINE KETONE NEGATIVE (NEGATIVE); URINE LEUK ESTERASE NEGATIVE (NEGATIVE); URINE NITRITE NEGATIVE (NEGATIVE); URINE PROTEIN NEGATIVE (NEGATIVE); URINE UROBILINOGEN 0.2 mg/dL (0.2-1.0)
[2024-12-28 18:33] LABS: POTASSIUM 5.4 mmol/L (3.5-5.1)
[2024-12-28 18:35] LABS: CALCIUM 9.4 mg/dL (8.5-10.1)
[2024-12-28 18:36] LABS: ALBUMIN 4.1 g/dl (3.4-5.0); BLOOD UREA NITROGEN 29.4 mg/dL (7-18)
[2024-12-28 18:40] LABS: BILIRUBIN,TOTAL 0.6 mg/dL (0.2-1)
[2024-12-28 18:41] LABS: TOT PROT 7.8 g/dl (6.4-8.2)
[2024-12-28 19:09] LABS: ABSOLUTE IMMATURE GRANULOCYTES 0.04 x10^3/uL (0.0-0.031); BASOPHILS # 0.03 x10^3/uL (0.01-0.08); EOSINOPHIL % 1.2 % (0.7-5.8); EOSINOPHILS # 0.08 x10^3/uL (0.04-0.36); HEMATOCRIT 38.1 % (34.1-44.9); HEMOGLOBIN 12.7 g/dL (11.2-15.7); MCHC 33.3 g/dl (32.2-35.5); MEAN CELL VOLUME 94.1 fl (79.4-94.8); MEAN PLT VOLUME 10.6 fl (9.4-12.3); MONOCYTE # 0.47 x10^3/uL (0.24-0.86); MONOCYTE % 7.2 % (4.7-12.5); PLATELET COUNT 159 x10^3/uL (182-369); RDW 13.4 % (12.4-16.6)
[2024-12-28 19:49] LABS: POTASSIUM 6.3 mmol/L (3.5-5.1)
[2024-12-28] MEDS ORDERED: KETOROLAC TROMETHAMINE 15 MG/ML VIAL ONE (21:48)
[2024-12-28] MEDS: KETOROLAC TROMETHAMINE 15 MG/ML VIAL IVPUSH ONE (21:51)
[2024-12-28 22:11] VITALS: BP 152/65; TEMP 97.6
== END 2024-12-28 22:12 | disposition home or self-care (01) ==
LOC: JER 16:03
PROC: 3E033GC Introduction of Other Therapeutic Substance into Peripheral Vein, Percutaneous Approach (ICD-10-PCS; principal; 2024-12-28)
PROC: 3E033NZ Introduction of Analgesics, Hypnotics, Sedatives into Peripheral Vein, Percutaneous Approach (ICD-10-PCS; 2024-12-28)
PROC: 3E0333Z Introduction of Anti-inflammatory into Peripheral Vein, Percutaneous Approach (ICD-10-PCS; 2024-12-28)
DX: R10.30 Lower abdominal pain, unspecified (principal); M54.9 Dorsalgia, unspecified; G89.29 Other chronic pain
CPT/HCPCS: 36415; 71046-TC-FY; 74177-TC; 80053; 81003; 83605; 83690; 84132; 84484; 85025; 87086; 93005; 93010; 96365; 96375; 99285-25

== ENCOUNTER 2025-03-18 06:09 | Day surgery (SDC) | payer OTHER ==
[2025-02-28 11:27] VITALS: BMI 34.7
[2025-03-18 08:46] VITALS: TEMP 98
[2025-03-18 09:31] VITALS: BP 111/55; PULSE 68; RESP 20
== END 2025-03-18 10:00 | disposition home or self-care (01) ==
LOC: JASU-ENDO 06:09
PROVIDERS: ATTEND Student in an Organized Health Care Education/Training Program
PROC: 0DBC8ZX Excision of Ileocecal Valve, Via Natural or Artificial Opening Endoscopic, Diagnostic (ICD-10-PCS; principal; 2025-03-18 08:00)
DX: Z12.11 Encounter for screening for malignant neoplasm of colon (principal); K63.89 Other specified diseases of intestine; K64.8 Other hemorrhoids
CPT/HCPCS: 88305-TC